=== PATIENT | female | born 1975 | race Caucasian/White ===

== ENCOUNTER → 2019-02-02 | Outpatient (CLI) | payer OTHER ==
[~2019-02-02] MED LIST: DOXY100C37 PO; IBUP200T45 PO; LEXA1TAB PO; OMEP40CA2 PO; PRED20TA PO; TIOT18INH INH; TOPA1TAB PO; TYLE500T78 PO; VENTAER IN
--- NOTE | 2019-02-02 12:03 | REP ---
CHEST, TWO VIEWS: There is no evidence of acute infiltrate. No pleural effusion is seen. The heart is normal in size. The mediastinal silhouette is unremarkable. The visualized osseous structures are intact. IMPRESSION: No acute pulmonary disease. Electronically Signed by Lance Rodriguez MD 02/02/2019 05:54 P
== END ==
LOC: M LRY 10:57
PROVIDERS: ATTEND Physician Assistant
DX: R06.2 Wheezing (principal)

== ENCOUNTER 2019-05-08 16:31 | Emergency (ER) | payer OTHER ==
[~2019-05-08] VITALS: Ht 165.1 cm; Wt 74.2 kg
[~2019-05-08 16:31] MED LIST changes: -OMEP40CA2 PO; +OMEP40CA97 PO
[2019-05-08] MEDS ORDERED: OMEP-221 (16:39)
[2019-05-08] MEDS ORDERED: IPRATROPIUM 0.5MG/ALBUTEROL 2.5MG INH SOL UD 3ML (DUONEB)(J7620) NEB ONE (18:00)
[2019-05-08] MEDS ORDERED: methylPREDNISolone INJ 125 MG/2 ML VIAL (J2930) IV ONE (18:00)
[2019-05-08 18:30] LABS: BASO # 0.1 10^3/uL (0.0-0.2); BASO % 0.7 % (0.0-1.0); EOS # 0.1 10^3/uL (0.0-0.5); EOS % 1.7 % (0.0-3.0); HEMATOCRIT 41.1 % (36.0-47.0); LYMPH # 2.6 10^3/uL (1.5-5.0); LYMPH % 33.2 % (24.0-44.0); MEAN CORPUSCULAR HGB CONC 31.6 g/dl (32.0-36.5); MEAN CORPUSCULAR VOLUME 94.7 fl (80.0-96.0); MONO # 0.6 10^3/uL (0.0-0.8); NEUTROPHILS # 4.3 10^3/uL (1.5-8.5); NEUTROPHILS % 56.3 % (36.0-66.0); PLATELET COUNT, AUTOMATED 225 10^3/uL (150-450); RED BLOOD COUNT 4.34 10^6/uL (4.00-5.40); WHITE BLOOD COUNT 7.7 10^3/uL (4.0-10.0)
[2019-05-08 18:55] LABS: BLOOD UREA NITROGEN 16 MG/DL (7-18); CALCIUM LEVEL 9.2 MG/DL (8.5-10.1); CARBON DIOXIDE LEVEL 29 MEQ/L (21-32); CHLORIDE LEVEL 109 MEQ/L (98-107); CREATININE FOR GFR 0.92 MG/DL (0.55-1.30); GLOMERULAR FILTRATION RATE > 60.0 (>58); GLUCOSE, FASTING 69 MG/DL (70-100); NT-PRO BNP 280 PG/ML (<125); POTASSIUM SERUM 4.5 MEQ/L (3.5-5.1); SODIUM LEVEL 144 MEQ/L (136-145)
--- NOTE | 2019-05-08 19:09 | REP ---
CHEST: Two views. There is no evidence of acute infiltrate. No pleural effusion is seen. The heart is normal in size. The mediastinal silhouette is unremarkable. The visualized osseous structures are intact. IMPRESSION: No acute pulmonary disease. Electronically Signed by Lance Rodriguez MD 05/08/2019 07:38 P
[2019-05-08] MEDS ORDERED: ISOVUE-370 76% 100ML VIAL (Q9967) As Ordered ONE (19:12)
--- NOTE | 2019-05-08 19:57 | REPVR ---
PROCEDURE INFORMATION: Exam: CT Angiography Chest With Contrast Exam date and time: 05/08/2019 7:11 PM Age: 44 years old Clinical indication: Shortness of breath; Additional info: Pleuritic chest pain, shortness of breath TECHNIQUE: Imaging protocol: Computed tomographic angiography of the chest with intravenous contrast. 3D rendering: MIP and/or 3D reconstructed images were created by the technologist. Radiation optimization: All CT scans at this facility use at least one of these dose optimization techniques: automated exposure control; mA and/or kV adjustment per patient size (includes targeted exams where dose is matched to clinical indication); or iterative reconstruction. Contrast material: ISVOUE 370; Contrast volume: 75 ml; Contrast route: IV; COMPARISON: CR Chest, 2 view PA, Lat 05/08/2019 6:43 PM FINDINGS: Pulmonary arteries: No focal pulmonary artery filling defect to suggest acute pulmonary embolus. Aorta: No thoracic aortic aneurysm or dissection. Lungs: Pulmonary vascular/interstitial pattern does not suggest active pulmonary edema. No suspicious lung mass or air space process. No central endobronchial lesion. Mild centrilobular emphysema with apical predominance, and mild right lower lobe bullous changes. Pleural space: No pleural effusion or pneumothorax. Heart: No cardiac enlargement or pericardial effusion. Spleen: Splenic cyst measuring 6.5 cm diameter, incidental, with simple fluid density. Lymph nodes: No enlarged mediastinal lymph nodes. Bones/joints: Bony structures show no acute fracture or destructive process. Soft tissues: Unremarkable. IMPRESSION: 1. No evidence of acute pulmonary embolus. 2. No other acute or concerning focal intrathoracic abnormality. 3. Mild apical predominant emphysema and mild basilar bullous change, likely mild centrilobular emphysema Electronically signed by: Semyour Jenkins On 05/08/2019 19:57:47 PM
[2019-05-08] MEDS ORDERED: PRED20TA PO (20:42)
[2019-05-08] MEDS ORDERED: AZIT500T5 PO (20:42)
[2019-05-08] MEDS ORDERED: ALBU83IN NEB (20:42)
[2019-05-08 21:02] VITALS: BP 126/75
== END 2019-05-08 21:26 | disposition home or self-care (01) ==
LOC: M ED 16:31
DX: J44.1 Chronic obstructive pulmonary disease with (acute) exacerbation (principal); I10 Essential (primary) hypertension; G47.00 Insomnia, unspecified; K21.9 Gastro-esophageal reflux disease without esophagitis; R51 Headache; F41.9 Anxiety disorder, unspecified; F32.9 Major depressive disorder, single episode, unspecified; Z86.010 Personal history of colon polyps; Z86.711 Personal history of pulmonary embolism; F17.200 Nicotine dependence, unspecified, uncomplicated; Z79.899 Other long term (current) drug therapy; Z88.5 Allergy status to narcotic agent; Z88.8 Allergy status to other drugs, medicaments and biological substances
CPT/HCPCS: 36415; 71046; 71275; 80048; 83605; 83880; 85025; 85379; 87040; 94760; 96374; 99284; J2930; Q9967

== ENCOUNTER 2019-05-18 19:28 | Emergency (ER) | payer OTHER ==
[~2019-05-18] VITALS: Ht 165.1 cm; Wt 78.3 kg
[~2019-05-18 19:28] MED LIST changes: +ALBU83IN NEB; +AZIT500T5 PO; +OMEP-221
[2019-05-18] MEDS ORDERED: CHAN1PAK13 (19:48)
[2019-05-18] MEDS ORDERED: BENZ-18 (19:48)
[2019-05-18] MEDS ORDERED: LORazepam 2 MG/ML VIAL (J2060) IV STA (20:15)
[2019-05-18] MEDS ORDERED: ALBUTEROL SULFATE 2.5 MG/0.5 ML INH NEB SOLN NEB ONE (20:15)
[2019-05-18] MEDS ORDERED: IPRATROPIUM 0.5MG/ALBUTEROL 2.5MG INH SOL UD 3ML (DUONEB)(J7620) NEB ONE (20:15)
[2019-05-18 20:31] LABS: HEMATOCRIT 38.9 % (36.0-47.0); HEMOGLOBIN 12.4 g/dl (12.0-15.5); MEAN CORPUSCULAR HEMOGLOBIN 30.3 pg (27.0-33.0); MEAN CORPUSCULAR HGB CONC 31.9 g/dl (32.0-36.5); MEAN CORPUSCULAR VOLUME 95.1 fl (80.0-96.0); PLATELET COUNT, AUTOMATED 230 10^3/uL (150-450); RED BLOOD COUNT 4.09 10^6/uL (4.00-5.40); WHITE BLOOD COUNT 13.2 10^3/uL (4.0-10.0)
[2019-05-18 20:34] LABS: BLOOD UREA NITROGEN 20 MG/DL (7-18); CALCIUM LEVEL 8.4 MG/DL (8.5-10.1); CARBON DIOXIDE LEVEL 29 MEQ/L (21-32); CHLORIDE LEVEL 105 MEQ/L (98-107); CK-MB VALUE MASS 2.3 NG/ML (<3.6); CPK CREATINE PHOSPHOKINASE 101 U/L (26-192); CREATININE FOR GFR 1.03 MG/DL (0.55-1.30); GLOMERULAR FILTRATION RATE > 60.0 (>58); GLUCOSE, FASTING 75 MG/DL (70-100); MB/CK RELATIVE INDEX 2.28 (< OR =4); POTASSIUM SERUM 4.1 MEQ/L (3.5-5.1); SODIUM LEVEL 139 MEQ/L (136-145); TROPONIN I < 0.02 NG/ML (< 0.10)
[2019-05-18 20:50] LABS: ATYPICAL LYMPH 8 % (0-5); EOSINOPHILS 1 % (0-3); LYMPHOCYTES 33 % (16-44); MONOCYTES 7 % (0-5); NEUTROPHILS 51 % (28-66)
[2019-05-18 20:51] LABS: PLATELET ESTIMATE NORMAL (NORMAL)
--- NOTE | 2019-05-18 21:19 | ECGEPIP ---
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
[2019-05-18] MEDS ORDERED: ATIV1TAB7 PO (22:15)
[2019-05-18] MEDS ORDERED: VENTAER INH (22:18)
[2019-05-18] MEDS ORDERED: VOLT1GEL15 TOP (22:27)
[2019-05-18] MEDS ORDERED: IPRA0.00 NEB (22:27)
[2019-05-18 22:48] VITALS: BP 109/59
--- NOTE | 2019-05-19 01:23 | REP ---
Clinical: Cough and dyspnea . Comparison: 05/08/2019 . Findings: The mediastinum and cardiac silhouette are stable and within normal limits for portable technique. The lung garrison are clear without acute consolidation, effusion, or pneumothorax. Skeletal structures are intact. Impression: No acute cardiopulmonary process appreciated. Electronically Signed by Cristi Retana MD 05/19/2019 01:14 A
== END 2019-05-18 22:53 | disposition home or self-care (01) ==
LOC: M ED 19:28
DX: F41.9 Anxiety disorder, unspecified (principal); R06.02 Shortness of breath; J44.9 Chronic obstructive pulmonary disease, unspecified; K21.9 Gastro-esophageal reflux disease without esophagitis; F32.9 Major depressive disorder, single episode, unspecified; F17.200 Nicotine dependence, unspecified, uncomplicated; Z79.899 Other long term (current) drug therapy; Z88.5 Allergy status to narcotic agent; Z88.8 Allergy status to other drugs, medicaments and biological substances
CPT/HCPCS: 36600; 71045; 80048; 82550; 82553; 82803; 85025; 93005; 93041; 94640; 96374; 99285; J2060

== ENCOUNTER → 2019-06-08 | Outpatient (CLI) | payer OTHER ==
[~2019-06-08] MED LIST changes: +ATIV1TAB7 PO; +BENZ-18; +CHAN1PAK13; +IPRA0.00 NEB; +VENTAER INH; +VOLT1GEL15 TOP
--- NOTE | 2019-06-08 11:16 | REP ---
Left calcaneus two views : There is no fracture or dislocation. Mineralization and joint spaces are normal. There are no calcifications or foreign bodies. Impression: Negative left calcaneus . Electronically Signed by Lance Boucher MD 06/08/2019 11:08 A
== END ==
LOC: M RAD 09:35
PROVIDERS: ATTEND Physician Assistant
DX: M79.672 Pain in left foot (principal)

== ENCOUNTER 2019-07-16 16:18 | Emergency (ER) | payer OTHER ==
[~2019-07-16] VITALS: Ht 165.1 cm; Wt 77.4 kg
[2019-07-16] MEDS ORDERED: SERT50TA29 (16:28)
[2019-07-16] MEDS ORDERED: INCR1INH (16:28)
[2019-07-16] MEDS ORDERED: LAMO25TA4 (16:28)
[2019-07-16] MEDS ORDERED: ZIPR20CA13 (16:28)
[2019-07-16] MEDS ORDERED: TOPI25TA10 (16:28)
[2019-07-16 17:48] LABS: INFLUENZA A AMPLIFICATION POSITIVE (NEGATIVE); INFLUENZA B AMPLIFICATION NEGATIVE (NEGATIVE)
[2019-07-16 17:52] LABS: BASO % 0.6 % (0.0-1.0); EOS # 0.1 10^3/uL (0.0-0.5); HEMATOCRIT 39.3 % (36.0-47.0); LYMPH # 1.3 10^3/uL (1.5-5.0); LYMPH % 18.7 % (24.0-44.0); MEAN CORPUSCULAR HGB CONC 33.1 g/dl (32.0-36.5); MEAN CORPUSCULAR VOLUME 93.6 fl (80.0-96.0); MONO # 0.8 10^3/uL (0.0-0.8); MONO % 10.5 % (0.0-5.0); NEUTROPHILS # 4.9 10^3/uL (1.5-8.5); NEUTROPHILS % 67.9 % (36.0-66.0); PLATELET COUNT, AUTOMATED 207 10^3/uL (150-450); WHITE BLOOD COUNT 7.2 10^3/uL (4.0-10.0)
[2019-07-16 18:04] LABS: INR 0.91; PARTIAL THROMBOPLASTIN TIME 27.1 SECONDS (25.0-38.4); PROTHROMBIN TIME 11.9 SECONDS (11.8-14.0)
[2019-07-16] MEDS ORDERED: ISOVUE-370 76% 100ML VIAL (Q9967) As Ordered ONE (18:12)
[2019-07-16 18:22] LABS: CK-MB VALUE MASS 5.6 NG/ML (<3.6); CPK CREATINE PHOSPHOKINASE 287 U/L (26-192); MB/CK RELATIVE INDEX 1.95 (< OR =4); TROPONIN I < 0.02 NG/ML (< 0.10)
--- NOTE | 2019-07-16 19:15 | REPVR ---
PROCEDURE INFORMATION: Exam: CT Angiography Chest With Contrast Exam date and time: 07/16/2019 6:19 PM Age: 44 years old Clinical indication: Shortness of breath; Chest pain; HX of pe TECHNIQUE: Imaging protocol: Computed tomographic angiography of the chest with intravenous contrast. 3D rendering: MIP reconstructed images were created by the technologist. Radiation optimization: All CT scans at this facility use at least one of these dose optimization techniques: automated exposure control; mA and/or kV adjustment per patient size (includes targeted exams where dose is matched to clinical indication); or iterative reconstruction. Contrast material: ISOVUE 370; Contrast volume: 75 ml; Contrast route: IV; COMPARISON: CT ANGIO CHEST 05/08/2019 7:10 PM FINDINGS: Pulmonary arteries: No pulmonary embolism. Great vessels off aortic arch: The brachiocephalic artery, imaged proximal portion of the left common carotid artery, and left subclavian artery are intact. No stenosis or occlusion of these vessels is noted. Aorta: There is no thoracic aortic aneurysm, pseudoaneurysm, penetrating atherosclerotic ulcer, intramural hematoma, or dissection. Lungs: The lungs are clear. There are centrilobular emphysematous changes, predominantly in the upper lobes, and cystic changes in the right lower lobe, which are similar in appearance compared to the prior CTA chest on 05/08/2019. The major airways are patent. Pleural space: Unremarkable. No pneumothorax. No pleural effusion. Heart: No cardiomegaly or pericardial effusion. The ratio of the diameter of the right ventricle to the diameter of the left ventricle measures less than 1, which is within normal limits and there is no evidence for a right ventricular strain. Mediastinum: No mediastinal mass, hemorrhage, or pneumomediastinum is noted. Liver: There is an 8 mm cyst in the periphery of the right hepatic lobe, which is unchanged compared to the prior CTA chest on 05/08/2019 and for which follow-up is not necessary. The liver was not fully imaged. Spleen: There is a 6 cm cyst with simple characteristics in the spleen, which is stable compared to the prior CTA chest on 05/08/2019 and for which follow-up is not necessary. The spleen was not fully imaged. Lymph nodes: No enlarged lymph nodes. Bones/joints: No fracture or dislocation is noted. There is no suspicious osteolytic or osteoblastic lesion. There are endplate spurs in the thoracic spine. Soft tissues: Unremarkable. IMPRESSION: 1. No acute findings in the chest. No pulmonary embolism. 2. Centrilobular emphysematous changes, which are similar in appearance compared to the prior CTA chest on 05/08/2019. Electronically signed by: Zac Mi On 07/16/2019 19:14:47 PM
[2019-07-16 19:30] VITALS: BP 115/61
[2019-07-16] MEDS ORDERED: OSELTAMIVIR PHOSPHATE 75 MG CAP (TAMIFLU) PO ONE (19:30)
[2019-07-16] MEDS ORDERED: OSEL75CA PO (19:30)
[2019-07-16] MEDS ORDERED: BENZ200C70 PO (19:35)
[2019-07-16] MEDS ORDERED: MEDR4PAK PO (19:35)
[2019-07-16] MEDS ORDERED: BENZONATATE 100 MG CAP PO ONE (19:45)
--- NOTE | 2019-07-17 07:45 | ECGEPIP ---
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
== END 2019-07-16 19:54 | disposition home or self-care (01) ==
LOC: M ED 16:18
DX: J09.X2 Influenza due to identified novel influenza A virus with other respiratory manifestations (principal); Z20.89 Contact with and (suspected) exposure to other communicable diseases; J43.9 Emphysema, unspecified; F41.9 Anxiety disorder, unspecified; F32.9 Major depressive disorder, single episode, unspecified; G25.81 Restless legs syndrome; M79.7 Fibromyalgia; R42 Dizziness and giddiness; M71.50 Other bursitis, not elsewhere classified, unspecified site; Z86.711 Personal history of pulmonary embolism; F17.200 Nicotine dependence, unspecified, uncomplicated; Z79.899 Other long term (current) drug therapy; Z88.5 Allergy status to narcotic agent; Z88.8 Allergy status to other drugs, medicaments and biological substances
CPT/HCPCS: 36415; 71275; 80047; 82550; 82553; 85025; 85610; 85730; 87502; 93005; 99284; Q9967

== ENCOUNTER 2019-08-14 10:59 | Emergency (ER) | payer OTHER ==
[~2019-08-14] VITALS: Ht 165.1 cm; Wt 77.3 kg
[~2019-08-14 10:59] MED LIST changes: +BENZ200C70 PO; -CHAN1PAK13; +CHAN1PAK13 PO; +INCR1INH INH; +LAMO25TA4 PO; +MEDR4PAK PO; +OSEL75CA PO; +SERT50TA29 PO; +TOPI25TA10 PO; +ZIPR20CA13
[2019-08-14 11:40] LABS: BASO # 0.1 10^3/uL (0.0-0.2); BASO % 0.7 % (0.0-1.0); EOS # 0.1 10^3/uL (0.0-0.5); EOS % 1.4 % (0.0-3.0); HEMATOCRIT 40.3 % (36.0-47.0); HEMOGLOBIN 13.9 g/dl (12.0-15.5); LYMPH # 2.4 10^3/uL (1.5-5.0); LYMPH % 34.2 % (24.0-44.0); MEAN CORPUSCULAR HEMOGLOBIN 31.4 pg (27.0-33.0); MEAN CORPUSCULAR HGB CONC 34.5 g/dl (32.0-36.5); MONO # 0.6 10^3/uL (0.0-0.8); MONO % 8.4 % (0.0-5.0); NEUTROPHILS # 3.8 10^3/uL (1.5-8.5); PLATELET COUNT, AUTOMATED 255 10^3/uL (150-450); RED BLOOD COUNT 4.43 10^6/uL (4.00-5.40); WHITE BLOOD COUNT 6.9 10^3/uL (4.0-10.0)
--- NOTE | 2019-08-14 11:55 | REP ---
CHEST, SINGLE VIEW: There is no evidence of acute infiltrate. No pleural effusion is seen. The heart is normal in size. The mediastinal silhouette is unremarkable. The visualized osseous structures are intact. IMPRESSION: No acute pulmonary disease. Electronically Signed by Lance Rodriguez MD 08/14/2019 12:57 P
[2019-08-14 11:56] LABS: INR 0.94; PARTIAL THROMBOPLASTIN TIME 25.6 SECONDS (25.0-38.4); PROTHROMBIN TIME 12.2 SECONDS (11.8-14.0)
[2019-08-14] MEDS ORDERED: OMEP-221 PO (12:05)
[2019-08-14 12:15] LABS: ALBUMIN 3.7 GM/DL (3.2-5.2); ALT/SGPT 16 U/L (12-78); BILIRUBIN,DIRECT < 0.1 MG/DL (0.0-0.2); BILIRUBIN,TOTAL 0.4 MG/DL (0.2-1.0); BLOOD UREA NITROGEN 15 MG/DL (7-18); CALCIUM LEVEL 8.9 MG/DL (8.5-10.1); CARBON DIOXIDE LEVEL 25 MEQ/L (21-32); CHLORIDE LEVEL 107 MEQ/L (98-107); CK-MB VALUE MASS 2.6 NG/ML (<3.6); CPK CREATINE PHOSPHOKINASE 138 U/L (26-192); CREATININE FOR GFR 0.88 MG/DL (0.55-1.30); FREE T4 1.05 NG/DL (0.76-1.46); GLOMERULAR FILTRATION RATE > 60.0 (>58); GLUCOSE, FASTING 79 MG/DL (70-100); LIPASE 102 U/L (73-393); MB/CK RELATIVE INDEX 1.88 (< OR =4); POTASSIUM SERUM 4.1 MEQ/L (3.5-5.1); SODIUM LEVEL 138 MEQ/L (136-145); TOTAL PROTEIN 6.5 GM/DL (6.4-8.2); TROPONIN I < 0.02 NG/ML (< 0.10)
[2019-08-14] MEDS ORDERED: ASPIRIN 325 MG TAB PO ONE (12:15)
[2019-08-14] MEDS ORDERED: ISOVUE-370 76% 100ML VIAL (Q9967) As Ordered ONE (13:09)
[2019-08-14] MEDS ORDERED: ONDANSETRON 4MG/2ML VIAL (J2405) IV ONE (13:15)
[2019-08-14] MEDS ORDERED: GI COCKTAIL 50ML BTL(HYOSCYAMINE/MAALOX/LIDOCAINE VISCOUS)(1:3:1) PO ONE (15:00)
--- NOTE | 2019-08-14 15:07 | REP ---
REASON: Pleuritic chest pain. COMPARISON EXAM: 05/08/2019 and 07/16/2019, both pulmonary angio exams, both showing no PE, but chronic lung changes. CONTRAST: 100 mL Isovue 370. Once again, there is excellent visualization of the pulmonary arterial vasculature. Once again, no focal filling defects are present that would be considered consistent with pulmonary emboli. Once again, the thoracic aorta is within normal limits. Once again, there are no pleural or pericardial effusions. The imaged upper abdomen is unchanged from the prior exam. There is a large splenic cyst status quo. The imaged osseous structures are stable and intact. Evaluation of the lung garrison show mild chronic changes status quo. There are no new abnormal nodules, masses, or opacities. IMPRESSION: CT examination of the chest is unchanged as described above. There is no evidence of acute disease. Electronically Signed by Jason Chan DO 08/14/2019 03:27 P
[2019-08-14 16:51] VITALS: BP 121/71
[2019-08-14 17:39] LABS: CK-MB VALUE MASS 2.1 NG/ML (<3.6); CPK CREATINE PHOSPHOKINASE 109 U/L (26-192); MB/CK RELATIVE INDEX 1.93 (< OR =4); TROPONIN I < 0.02 NG/ML (< 0.10)
--- NOTE | 2019-08-15 09:08 | ECGEPIP ---
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
--- NOTE | 2019-08-15 09:13 | ECGEPIP ---
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
== END 2019-08-14 18:05 | disposition home or self-care (01) ==
LOC: M ED 10:59
DX: R07.89 Other chest pain (principal); R11.2 Nausea with vomiting, unspecified; R07.1 Chest pain on breathing; R42 Dizziness and giddiness; J44.9 Chronic obstructive pulmonary disease, unspecified; M54.9 Dorsalgia, unspecified; Z79.899 Other long term (current) drug therapy; Z88.5 Allergy status to narcotic agent; Z88.8 Allergy status to other drugs, medicaments and biological substances
CPT/HCPCS: 71045; 71275; 80048; 80076; 81001; 82550; 82553; 83690; 84439; 84443; 85025; 85610; 85730; 93005; 93041; 94760; 96374; 99284; J2405; Q9967

== ENCOUNTER 2020-02-06 12:44 | Emergency (ER) | payer OTHER ==
[~2020-02-06 12:44] MED LIST changes: -KETO10TAB PO
[2020-02-06] MEDS ORDERED: KETOROLAC 30 MG/ML 1ML VIAL IV ONE (13:30)
[2020-02-06 13:59] LABS: BASO # 0.1 10^3/uL (0.0-0.2); BASO % 0.7 % (0.0-1.0); EOS # 0.2 10^3/uL (0.0-0.5); EOS % 1.7 % (0.0-3.0); HEMATOCRIT 36.1 % (36.0-47.0); HEMOGLOBIN 11.8 g/dl (12.0-15.5); LYMPH # 2.6 10^3/uL (1.5-5.0); LYMPH % 28.7 % (24.0-44.0); MEAN CORPUSCULAR HEMOGLOBIN 30.5 pg (27.0-33.0); MEAN CORPUSCULAR HGB CONC 32.7 g/dl (32.0-36.5); MEAN CORPUSCULAR VOLUME 93.3 fl (80.0-96.0); MONO # 0.7 10^3/uL (0.0-0.8); NEUTROPHILS # 5.4 10^3/uL (1.5-8.5); NEUTROPHILS % 60.6 % (36.0-66.0); PLATELET COUNT, AUTOMATED 235 10^3/uL (150-450); RED BLOOD COUNT 3.87 10^6/uL (4.00-5.40); WHITE BLOOD COUNT 8.9 10^3/uL (4.0-10.0)
[2020-02-06 14:12] LABS: INR 0.9; PROTHROMBIN TIME 12.4 SECONDS (12.5-14.3)
--- NOTE | 2020-02-06 14:34 | REPVR ---
PROCEDURE INFORMATION: Exam: XR Chest, 1 View Exam date and time: 02/06/2020 2:21 PM Age: 44 years old Clinical indication: Chest pain; On breathing TECHNIQUE: Imaging protocol: XR of the chest Views: 1 view. COMPARISON: CR PORTABLE CHEST X-RAY 08/14/2019 11:10 AM FINDINGS: Lungs: Unremarkable. No consolidation. Pleural space: Unremarkable. No pleural effusion. No pneumothorax. Heart/Mediastinum: Unremarkable. No cardiomegaly. Bones/joints: Unremarkable. IMPRESSION: No acute findings. Electronically signed by: Elma Greenwood On 02/06/2020 14:33:48 PM
[2020-02-06 14:36] LABS: ALBUMIN 3.6 GM/DL (3.2-5.2); ALT/SGPT 22 U/L (12-78); BILIRUBIN,DIRECT < 0.1 MG/DL (0.0-0.2); BILIRUBIN,TOTAL 0.3 MG/DL (0.2-1.0); BLOOD UREA NITROGEN 14 MG/DL (7-18); CALCIUM LEVEL 8.5 MG/DL (8.5-10.1); CARBON DIOXIDE LEVEL 28 MEQ/L (21-32); CHLORIDE LEVEL 109 MEQ/L (98-107); CREATININE FOR GFR 0.86 MG/DL (0.55-1.30); GLOMERULAR FILTRATION RATE > 60.0 (>58); GLUCOSE, FASTING 92 MG/DL (70-100); LIPASE 95 U/L (73-393); NT-PRO BNP 173 PG/ML (<125); POTASSIUM SERUM 4.3 MEQ/L (3.5-5.1); SODIUM LEVEL 141 MEQ/L (136-145); TOTAL PROTEIN 6.3 GM/DL (6.4-8.2)
[2020-02-06] MEDS ORDERED: ISOVUE-370 76% 100ML VIAL As Ordered ONE (14:53)
--- NOTE | 2020-02-06 16:00 | REPVR ---
PROCEDURE INFORMATION: Exam: CT Angiography Chest With Contrast Exam date and time: 02/06/2020 3:11 PM Age: 44 years old Clinical indication: Chest pain; Additional info: Pleuritic cp TECHNIQUE: Imaging protocol: Computed tomographic angiography of the chest with intravenous contrast. 3D rendering (Not supervised by radiologist): MIP and/or 3D reconstructed images were created by the technologist. Radiation optimization: All CT scans at this facility use at least one of these dose optimization techniques: automated exposure control; mA and/or kV adjustment per patient size (includes targeted exams where dose is matched to clinical indication); or iterative reconstruction. Contrast material: ISOVUE 370; Contrast volume: 75 ml; Contrast route: INTRAVENOUS (IV); COMPARISON: CT ANGIO CHEST 08/14/2019 1:33 PM FINDINGS: Pulmonary arteries: There is no evidence of filling defects within the pulmonary arterial circulation to suggest pulmonary embolism. Aorta: No thoracic aortic aneurysm or dissection. Lungs: There is no focal lung consolidation however there is diffuse prominence of the interstitium and multiple pneumatoceles are again seen in the right lower lobe. Pleural space: Unremarkable. No pneumothorax. No pleural effusion. Heart: No cardiomegaly or pericardial effusion. Lymph nodes: No significant mediastinal or hilar lymphadenopathy. Spleen: Large splenic cystic appearing lesion is again seen measuring 5.9 cm. No further significant findings in the portion of the upper abdomen included on the examination. Bones/joints: Unremarkable. No acute fracture. Soft tissues: Unremarkable. IMPRESSION: 1. No evidence of pulmonary emboli. 2. No evidence of pneumonia or congestive heart failure superimposed on chronic lung disease. 3. Stable cystic lesion with rim calcification in the spleen. No follow-up is necessary. Electronically signed by: Elma Greenwood On 02/06/2020 16:00:07 PM
[2020-02-06] MEDS ORDERED: KETO10TAB PO (18:51)
[2020-02-06 19:53] VITALS: BP 139/72
--- NOTE | 2020-02-07 08:27 | ECGEPIP ---
[facility] - ED Test Date: 2020-02-06 Pat Name: JASKARAN ESPARZA Department: Room: - Gender: Female Rn Surgery Icu: MARIA C : 1975 Requested By: Rhoda Garcia Order Number: [id number] Reading MD: Rhoda Garcia Measurements Intervals [place] Rate: 82 P: 38 NC: 151 QRS: 27 QRSD: 78 T: 60 QT: 338 QTc: 395 Interpretive Statements SINUS RHYTHM INCREASED RATE 08/14/19 Electronically Signed on 02-07-2020 8:27:22 EDT by Rhoda Garcia
--- NOTE | 2020-02-09 07:11 | ECGEPIP ---
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
== END 2020-02-06 19:54 | disposition home or self-care (01) ==
LOC: EDBD 12:44 → M ED 12:44
DX: R07.89 Other chest pain (principal); F41.9 Anxiety disorder, unspecified; F32.9 Major depressive disorder, single episode, unspecified; G47.30 Sleep apnea, unspecified; J44.9 Chronic obstructive pulmonary disease, unspecified; K21.9 Gastro-esophageal reflux disease without esophagitis; G43.909 Migraine, unspecified, not intractable, without status migrainosus; G25.81 Restless legs syndrome; Z86.711 Personal history of pulmonary embolism; F17.200 Nicotine dependence, unspecified, uncomplicated; Z79.899 Other long term (current) drug therapy; Z88.5 Allergy status to narcotic agent; Z88.8 Allergy status to other drugs, medicaments and biological substances
CPT/HCPCS: 71045; 71275; 80047; 80048; 80076; 80175; 83690; 83880; 84443; 85025; 85610; 93005; 93041; 94760; 96374; 99285; J1885; Q9967

== ENCOUNTER → 2020-02-06 | Outpatient (REF) | payer OTHER ==
[~2020-02-06] MED LIST changes: +KETO10TAB PO; +OMEP-221 PO
[2020-02-06 12:59] LABS: BASO # 0.1 10^3/uL (0.0-0.2); BASO % 0.8 % (0.0-1.0); EOS # 0.2 10^3/uL (0.0-0.5); EOS % 2.3 % (0.0-3.0); HEMATOCRIT 38.9 % (36.0-47.0); HEMOGLOBIN 12.3 g/dl (12.0-15.5); LYMPH # 2.4 10^3/uL (1.5-5.0); LYMPH % 32.6 % (24.0-44.0); MEAN CORPUSCULAR HEMOGLOBIN 30.2 pg (27.0-33.0); MEAN CORPUSCULAR HGB CONC 31.6 g/dl (32.0-36.5); MEAN CORPUSCULAR VOLUME 95.6 fl (80.0-96.0); MONO # 0.6 10^3/uL (0.0-0.8); NEUTROPHILS # 4.1 10^3/uL (1.5-8.5); NEUTROPHILS % 55.9 % (36.0-66.0); PLATELET COUNT, AUTOMATED 251 10^3/uL (150-450); RED BLOOD COUNT 4.07 10^6/uL (4.00-5.40); WHITE BLOOD COUNT 7.4 10^3/uL (4.0-10.0)
[2020-02-06 13:34] LABS: ALBUMIN 3.9 GM/DL (3.2-5.2); ALT/SGPT 22 U/L (12-78); BILIRUBIN,TOTAL 0.5 MG/DL (0.2-1.0); BLOOD UREA NITROGEN 14 MG/DL (7-18); CARBON DIOXIDE LEVEL 30 MEQ/L (21-32); CHLORIDE LEVEL 108 MEQ/L (98-107); CHOLESTEROL LEVEL 182 MG/DL (<200); CHOLESTEROL RISK RATIO 4.232 (<5); CREATININE FOR GFR 0.95 MG/DL (0.55-1.30); FREE T4 0.98 NG/DL (0.76-1.46); GLOMERULAR FILTRATION RATE > 60.0 (>58); GLUCOSE, FASTING 88 MG/DL (70-100); HDL CHOLESTEROL 43 MG/DL (>40); LDL CHOLESTEROL 112 MG/DL (<100); NON-HDL-C 139 MG/DL; POTASSIUM SERUM 4.5 MEQ/L (3.5-5.1); SODIUM LEVEL 143 MEQ/L (136-145); TOTAL PROTEIN 6.7 GM/DL (6.4-8.2); TRIGLYCERIDES LEVEL 135 MG/DL (<150)
[2020-02-06 13:35] LABS: TOTAL 25(OH) VITAMIN D 25.8 NG/ML (30.0-100.0)
== END ==
LOC: M LAB REF 11:35
PROVIDERS: ATTEND Physician Assistant
DX: R00.2 Palpitations (principal); F90.2 Attention-deficit hyperactivity disorder, combined type; F41.8 Other specified anxiety disorders; J44.9 Chronic obstructive pulmonary disease, unspecified; F17.210 Nicotine dependence, cigarettes, uncomplicated; K21.9 Gastro-esophageal reflux disease without esophagitis

== ENCOUNTER → 2020-02-19 | Outpatient (REF) | payer OTHER ==
[~2020-02-19] MED LIST changes: +KETO10TAB PO
== END ==
LOC: M LAB REF 16:17
PROVIDERS: ATTEND Physician Assistant
DX: Z11.3 Encounter for screening for infections with a predominantly sexual mode of transmission (principal)

== ENCOUNTER → 2020-05-12 | Outpatient (CLI) | payer OTHER | LOC: M LABSMTC 11:30 | PROVIDERS: ATTEND Anesthesiology | DX: Z01.812 Encounter for preprocedural laboratory examination (principal); Z20.822 Contact with and (suspected) exposure to COVID-19 ==

== ENCOUNTER 2020-05-17 09:50 | Day surgery (SDC) | payer OTHER ==
[~2020-05-17] VITALS: Ht 165.1 cm; Wt 90.7 kg
[~2020-05-17 09:50] MED LIST changes: +NS 1,000 ML IV ONE
--- OUTSIDE RECORDS SUMMARY | 2020-05-17 09:55 | CCD ---
Author Author [facility] Organization [facility] Address Unknown Phone Unavailable Care Team Providers Care Cadet Deck Name Role Phone Osman, A Kassidy BEEF CATTLE GRAZIER Unavailable Unavailable Osman, A Kassidy BEEF CATTLE GRAZIER Unavailable Unavailable Osman, A Kassidy BEEF CATTLE GRAZIER Unavailable Unavailable Osman, A Kassidy BEEF CATTLE GRAZIER Unavailable Unavailable Osman, A Kassidy BEEF CATTLE GRAZIER Unavailable Unavailable Osman, A Kassidy BEEF CATTLE GRAZIER Unavailable Unavailable Osman, A Kassidy BEEF CATTLE GRAZIER Unavailable Unavailable Osman, A Kassidy BEEF CATTLE GRAZIER Unavailable Unavailable Osman, A Kassidy BEEF CATTLE GRAZIER Unavailable Unavailable Osman, A Kassidy BEEF CATTLE GRAZIER Unavailable Unavailable Osman, A Kassidy BEEF CATTLE GRAZIER Unavailable Unavailable Osman, A Kassidy BEEF CATTLE GRAZIER Unavailable Unavailable Osman, A Kassidy BEEF CATTLE GRAZIER Unavailable Unavailable Osman, A Kassidy BEEF CATTLE GRAZIER Unavailable Unavailable Osman, A Kassidy BEEF CATTLE GRAZIER Unavailable Unavailable Osman, A Kassidy BEEF CATTLE GRAZIER Unavailable Unavailable Osman, A Kassidy BEEF CATTLE GRAZIER Unavailable Unavailable Osman, A Kassidy BEEF CATTLE GRAZIER Unavailable Unavailable Osman, A Kassidy BEEF CATTLE GRAZIER Unavailable Unavailable Osman, A Kassidy BEEF CATTLE GRAZIER Unavailable Unavailable Osman, A Kassidy BEEF CATTLE GRAZIER Unavailable Unavailable Osman, A Kassidy BEEF CATTLE GRAZIER Unavailable Unavailable Osman, A Kassidy BEEF CATTLE GRAZIER Unavailable Unavailable Osman, A Kassidy BEEF CATTLE GRAZIER Unavailable Unavailable Osman, A Kassidy BEEF CATTLE GRAZIER Unavailable Unavailable Osman, A Kassidy BEEF CATTLE GRAZIER Unavailable Unavailable Osman, A Kassidy BEEF CATTLE GRAZIER Unavailable Unavailable MAJAK, R NASREEN DPM Unavailable Unavailable MAJAK, R NASREEN DPM Unavailable Unavailable MAJAK, R NASREEN DPM Unavailable Unavailable MAJAK, R NASREEN DPM Unavailable Unavailable MAJAK, R NASREEN DPM Unavailable Unavailable MAJAK, R NASREEN DPM Unavailable Unavailable MAJAK, R NASREEN DPM Unavailable Unavailable MAJAK, R NASREEN DPM Unavailable Unavailable MAJAK, R NASREEN DPM Unavailable Unavailable MAJAK, R NASREEN DPM Unavailable Unavailable MAJAK, R NASREEN DPM Unavailable Unavailable MAJAK, R NASREEN DPM Unavailable Unavailable MAJAK, R NASREEN DPM Unavailable Unavailable MAJAK, R NASREEN DPM Unavailable Unavailable MAJAK, R NASREEN DPM Unavailable Unavailable MAJAK, R NASREEN DPM Unavailable Unavailable MAJAK, R NASREEN DPM Unavailable Unavailable MAJAK, R NASREEN DPM Unavailable Unavailable MAJAK, R NASREEN DPM Unavailable Unavailable MAJAK, R NASREEN DPM Unavailable Unavailable MAJAK, R NASREEN DPM Unavailable Unavailable MAJAK, R NASREEN DPM Unavailable Unavailable MAJAK, R NASREEN DPM Unavailable Unavailable MAJAK, R NASREEN DPM Unavailable Unavailable MAJAK, R NASREEN DPM Unavailable Unavailable MAJAK, R NASREEN DPM Unavailable Unavailable MAJAK, R NASREEN DPM Unavailable Unavailable MAJAK, R NASREEN DPM Unavailable Unavailable MAJAK, R NASREEN DPM Unavailable Unavailable MAJAK, R NASREEN DPM Unavailable Unavailable Joanne LUCAS MD Unavailable Unavailable Joanne LUCAS MD Unavailable Unavailable Joanne LUCAS MD Unavailable Unavailable Joanne LUCAS MD Unavailable Unavailable Joanne LUCAS MD Unavailable Unavailable Joanne LUCAS MD Unavailable Unavailable Joanne LUCAS MD Unavailable Unavailable Joanne LUCAS MD Unavailable Unavailable Joanne LUCAS MD Unavailable Unavailable Joanne LUCAS MD Unavailable Unavailable Joanne LUCAS MD Unavailable Unavailable Joanne LUCAS MD Unavailable Unavailable Joanne LUCAS MD Unavailable Unavailable Joanne LUCAS MD Unavailable Unavailable Joanne LUCAS MD Unavailable Unavailable Joanne LUCAS MD Unavailable Unavailable Joanne LUCAS MD Unavailable Unavailable Joanne LUCAS MD Unavailable Unavailable Joanne LUCAS MD Unavailable Unavailable Joanne LUCAS MD Unavailable Unavailable Joanne LUCAS MD Unavailable Unavailable Joanne LUCAS MD Unavailable Unavailable Joanne LUCAS MD Unavailable Unavailable Joanne LUCAS MD Unavailable Unavailable Joanne LUCAS MD Unavailable Unavailable Joanne LUCAS MD Unavailable Unavailable Joanne LUCAS MD Unavailable Unavailable Joanne LUCAS MD Unavailable Unavailable Joanne LUCAS MD Unavailable Unavailable Joanne LUCAS MD Unavailable Unavailable Joanne LUCAS MD Unavailable Unavailable Joanne LUCAS MD Unavailable Unavailable Joanne LUCAS MD Unavailable Unavailable Joanne LUCAS MD Unavailable Unavailable Joanne LUCAS MD Unavailable Unavailable Joanne LUCAS MD Unavailable Unavailable Joanne LUCAS MD Unavailable Unavailable Joanne LUCAS MD Unavailable Unavailable Joanne LUCAS MD Unavailable Unavailable Joanne LUCAS MD Unavailable Unavailable Joanne LUCAS MD Unavailable Unavailable Joanne LUCAS MD Unavailable Unavailable Joanne LUCAS MD Unavailable Unavailable Joanne LUCAS MD Unavailable Unavailable Joanne LUCAS MD Unavailable Unavailable Joanne LUCAS MD Unavailable Unavailable Joanne LUCAS MD Unavailable Unavailable Joanne LUCAS MD Unavailable Unavailable Joanne LUCAS MD Unavailable Unavailable Joanne LUCAS MD Unavailable Unavailable Joanne LUCAS MD Unavailable Unavailable Joanne LUCAS MD Unavailable Unavailable Joanne LUCAS MD Unavailable Unavailable Joanne LUCAS MD Unavailable Unavailable Joanne LUCAS MD Unavailable Unavailable Joanne LUCAS MD Unavailable Unavailable Joanne LUCAS MD Unavailable Unavailable Joanne LUCAS MD Unavailable Unavailable Joanne LUCAS MD Unavailable Unavailable Joanne LUCAS MD Unavailable Unavailable Joanne LUCAS MD Unavailable Unavailable Joanne LUCAS MD Unavailable Unavailable Joanne LUCAS MD Unavailable Unavailable Joanne LUCAS MD Unavailable Unavailable Joanne LUCAS MD Unavailable Unavailable Joanne LUCAS MD Unavailable Unavailable Joanne LUCAS MD Unavailable Unavailable Joanne LUCAS MD Unavailable Unavailable Joanne LUCAS MD Unavailable Unavailable Joanne LUCAS MD Unavailable Unavailable Joanne LUCAS MD Unavailable Unavailable FELIXJoanne ENGLAND MD Unavailable Unavailable FELIXJoanne Tariq MD Unavailable Unavailable FELIXJoanne Tariq MD Unavailable Unavailable FELIX, Joanne RAMOS MD Unavailable Unavailable FELIXJoanne ENGLAND MD Unavailable Unavailable FELIXJoanne ENGLAND MD Unavailable Unavailable FELIX, Joanne RAMOS MD Unavailable Unavailable FELIX, Joanne RAMOS MD Unavailable Unavailable Joanne LUCAS MD Unavailable Unavailable FELIXJoanne ENGLAND MD Unavailable Unavailable Joanne LUCAS MD Unavailable Unavailable Joanne LUCAS MD Unavailable Unavailable RENATA, Eric URBINA MD Unavailable Unavailable RENATA, Eric URBINA MD Unavailable Unavailable RENATA, Eric URBINA MD Unavailable Unavailable RENATA, Eric URBINA MD Unavailable Unavailable RENATA, Eric URBINA MD Unavailable Unavailable RENATA, Eric URBINA MD Unavailable Unavailable RENATA, Eric URBINA MD Unavailable Unavailable RENATA, Eric URBINA MD Unavailable Unavailable RENATA, Eric URBINA MD Unavailable Unavailable RENATA, Eric URBINA MD Unavailable Unavailable RENATA, Eric URBINA MD Unavailable Unavailable RENATA, Eric URBINA MD Unavailable Unavailable RENATA, Eric URBINA MD Unavailable Unavailable RENATA, Eric URBINA MD Unavailable Unavailable RENATA, Eric URBINA MD Unavailable Unavailable RENATA, Eric URBINA MD Unavailable Unavailable RENATA, Eric URBINA MD Unavailable Unavailable RENATA, Eric URBINA MD Unavailable Unavailable RENATA, Eric URBINA MD Unavailable Unavailable RENATA, Eric URBINA MD Unavailable Unavailable RENATA, Eric URBINA MD Unavailable Unavailable RENATA, Eric URBINA MD Unavailable Unavailable RENATA, Eric URBINA MD Unavailable Unavailable RENATA, Eric URBINA MD Unavailable Unavailable RENATA, Eric URBINA MD Unavailable Unavailable RENATA, Eric URBINA MD Unavailable Unavailable RENATA, Eric URBINA MD Unavailable Unavailable RENATAEric LYNN MD Unavailable Unavailable RENATA, Eric URBINA MD Unavailable Unavailable RENATA, Eric URBINA MD Unavailable Unavailable RENATA, Eric URBINA MD Unavailable Unavailable RENATA, Eric URBINA MD Unavailable Unavailable RENATA, Eric URBINA MD Unavailable Unavailable RENATA, Eric URBINA MD Unavailable Unavailable RENATA, Eric URBINA MD Unavailable Unavailable RENATA, Eric URBINA MD Unavailable Unavailable RENATA, Eric URBINA MD Unavailable Unavailable RENATA, Eric URBINA MD Unavailable Unavailable RENATA, Eric URBINA MD Unavailable Unavailable RENATA, Eric URBINA MD Unavailable Unavailable RENATA, Eric URBINA MD Unavailable Unavailable RENATA, Eric RUBINA MD Unavailable Unavailable RENATA, Eric URBINA MD Unavailable Unavailable RENATA, Eric URBINA MD Unavailable Unavailable RENATA, Eric URBINA MD Unavailable Unavailable RENATA, Eric URBINA MD Unavailable Unavailable RENATA, Eric URBINA MD Unavailable Unavailable RENATA, E CIARA PARSONS Unavailable Unavailable RENATA, Eric URBINA MD Unavailable Unavailable RENATA, E CIARA PARSONS Unavailable Unavailable RENATA, Eric URBINA MD Unavailable Unavailable RENATA, Eric URBINA MD Unavailable Unavailable RENATA, Eric URBINA MD Unavailable Unavailable RENATA, E CIARA PARSONS Unavailable Unavailable RENATA, E CIARA PARSONS Unavailable Unavailable RENATA, E CIARA PARSONS Unavailable Unavailable RENATA, E CIARA PARSONS Unavailable Unavailable RENATA, Eric URBINA MD Unavailable Unavailable RENATA, Eric URBINA MD Unavailable Unavailable RENATA, Eric URBINA MD Unavailable Unavailable RENATA, Eric URBINA MD Unavailable Unavailable RENATA, Eric URBINA MD Unavailable Unavailable RENATA, Eric URBINA MD Unavailable Unavailable RENATA, Eric URBINA MD Unavailable Unavailable RENATA, Eric URBINA MD Unavailable Unavailable RENATA, Eric URBINA MD Unavailable Unavailable RENATA, Eric URBINA MD Unavailable Unavailable RENATA, Eric URBINA MD Unavailable Unavailable RENATA, Eric URBINA MD Unavailable Unavailable RENATA, Eric URBINA MD Unavailable Unavailable RENATA, Eric URBINA MD Unavailable Unavailable RENATA, Eric URBINA MD Unavailable Unavailable RENATA, Eric URBINA MD Unavailable Unavailable RENATA, Eric URBINA MD Unavailable Unavailable RENATA, Eric URBINA MD Unavailable Unavailable RENATA, Eric URBINA MD Unavailable Unavailable RENATA, Eric URBINA MD Unavailable Unavailable RENATA, Eric URBINA MD Unavailable Unavailable RENATA, Eric URBINA MD Unavailable Unavailable RENATA, Eric URBINA MD Unavailable Unavailable RENATA, Eric URBINA MD Unavailable Unavailable RENATA, Eric URBINA MD Unavailable Unavailable RENATA, Eric URBINA MD Unavailable Unavailable RENATA, Eric URBINA MD Unavailable Unavailable RENATA, Eric URBINA MD Unavailable Unavailable RENATA, Eric URBINA MD Unavailable Unavailable RENATA, Eric URBINA MD Unavailable Unavailable RENATA, Eric URBINA MD Unavailable Unavailable RENATA, Eric URBINA MD Unavailable Unavailable RENATA, Eric URBINA MD Unavailable Unavailable Eric YANEZ MD Unavailable Unavailable Eric YANEZ MD Unavailable Unavailable Eric YANEZ MD Unavailable Unavailable Sarah CHINCHILLA MD Unavailable Unavailable Sarah CHINCHILLA MD Unavailable Unavailable Sarah CHINCHILLA MD Unavailable Unavailable Sarah CHINCHILLA MD Unavailable Unavailable Sarah CHINCHILLA MD Unavailable Unavailable Sarah CHINCHILLA MD Unavailable Unavailable Sarah CHINCHILLA MD Unavailable Unavailable Sarah CHINCHILLA MD Unavailable Unavailable Sarah CHINCHILLA MD Unavailable Unavailable Sarah CHINCHILLA MD Unavailable Unavailable Sarah CHINCHILLA MD Unavailable Unavailable Sarah CHINCHILLA MD Unavailable Unavailable Sarah CHINCHILLA MD Unavailable Unavailable Sarah CHINCHILLA MD Unavailable Unavailable Sarah CHINCHILLA MD Unavailable Unavailable Sarah CHINCHILLA MD Unavailable Unavailable Sarah CHINCHILLA MD Unavailable Unavailable Sarah CHINCHILLA MD Unavailable Unavailable Sarah CHINCHILLA MD Unavailable Unavailable Sarah CHINCHILLA MD Unavailable Unavailable Sarah CHINCHILLA MD Unavailable Unavailable Sarah CHINCHILLA MD Unavailable Unavailable Sarah CHINCHILLA MD Unavailable Unavailable Sarah CHINCHILLA MD Unavailable Unavailable Sarah CHINCHILLA MD Unavailable Unavailable Sarah CHINCHILLA MD Unavailable Unavailable Sarah CHINCHILLA MD Unavailable Unavailable Sarah CHINCHILLA MD Unavailable Unavailable Sarah CHINCHILLA MD Unavailable Unavailable Sarah CHINCHILLA MD Unavailable Unavailable Sarah CHINCHILLA MD Unavailable Unavailable Sarah CHINCHILLA MD Unavailable Unavailable Sarah CHINCHILLA MD Unavailable Unavailable Kassidy Brewer BEEF CATTLE GRAZIER BEEF CATTLE GRAZIER Unavailable Unavailable Dudley Black MD Unavailable Unavailable Dudley Black MD Unavailable Unavailable Dudley Black MD Unavailable Unavailable Dudley Black MD Unavailable Unavailable Dudley Black MD Unavailable Unavailable Dudley Black MD Unavailable Unavailable Dudley Black MD Unavailable Unavailable Dudley Black MD Unavailable Unavailable Dudley Black MD Unavailable Unavailable Dudley Black MD Unavailable Unavailable Dudley Black MD Unavailable Unavailable Dudley Black MD Unavailable Unavailable Dudley Black MD Unavailable Unavailable Black, Dudley Abreu MD Unavailable Unavailable Black, Dudley Abreu MD Unavailable Unavailable Black, Dudley Abreu MD Unavailable Unavailable Black, Dudley Abreu MD Unavailable Unavailable Black, Dudley Abreu MD Unavailable Unavailable Black, Dudley Abreu MD Unavailable Unavailable Black, Dudley Abreu MD Unavailable Unavailable Black, Dudley Abreu MD Unavailable Unavailable Black, Dudley Abreu MD Unavailable Unavailable Black, Dudley Abreu MD Unavailable Unavailable Black, Dudley Abreu MD Unavailable Unavailable Black, Dudley Abreu MD Unavailable Unavailable Black, Dudley Abreu MD Unavailable Unavailable Black, Dudley Abreu MD Unavailable Unavailable Black, Dudley Abreu MD Unavailable Unavailable Black, Dudley Abreu MD Unavailable Unavailable Black, Dudley Abreu MD Unavailable Unavailable Black, Dudley Abreu MD Unavailable Unavailable Black, Dudley Abreu MD Unavailable Unavailable Black, Dudley Abreu MD Unavailable Unavailable Black, Dudley Abreu MD Unavailable Unavailable Black, Dudley Abreu MD Unavailable Unavailable Black, Dudley Abreu MD Unavailable Unavailable Black, Dudley Abreu MD Unavailable Unavailable Black, Dudley Abreu MD Unavailable Unavailable Black, Dudley Abreu MD Unavailable Unavailable Black, Dudley Abreu MD Unavailable Unavailable Black, Dudley Abreu MD Unavailable Unavailable Black, Dudley Abreu MD Unavailable Unavailable Black, Dudley Abreu MD Unavailable Unavailable Black, Dudley Abreu MD Unavailable Unavailable Black, Dudley Abreu MD Unavailable Unavailable Black, Dudley Abreu MD Unavailable Unavailable Black, Dudley Abreu MD Unavailable Unavailable Black, Dudley Abreu MD Unavailable Unavailable Black, Dudley Abreu MD Unavailable Unavailable Black, Dudley Abreu MD Unavailable Unavailable ROBLES, BELLE GLEN RPA-C Unavailable Unavailable ROBLES, BELLE GLEN RPA-C Unavailable Unavailable ROBLES, BELLE GLEN RPA-C Unavailable Unavailable ROBLES, BELLE GLEN RPA-C Unavailable Unavailable ROBLES, BELLE GLEN RPA-C Unavailable Unavailable ROBLES, BELLE GLEN RPA-C Unavailable Unavailable ROBLES, BELLE GLEN RPA-C Unavailable Unavailable ROBLES, BELLE GLEN RPA-C Unavailable Unavailable ROBLES, BELLE GLEN RPA-C Unavailable Unavailable ROBLES, BELLE GLEN RPA-C Unavailable Unavailable ROBLES, BELLE GLEN RPA-C Unavailable Unavailable ROBLES, BELLE GLEN RPA-C Unavailable Unavailable ROBLES, BELLE GLEN RPA-C Unavailable Unavailable ROBLES, BELLE GLEN RPA-C Unavailable Unavailable ROBLES, BELLE GLEN RPA-C Unavailable Unavailable ROBLES, BELLE GLEN RPA-C Unavailable Unavailable ROBLES, BELLE GLEN RPA-C Unavailable Unavailable ROBLES, BELLE GLEN RPA-C Unavailable Unavailable ROBLES, BELLE GLEN RPA-C Unavailable Unavailable ROBLES, BELLE GLEN RPA-C Unavailable Unavailable ROBLES, BELLE GLEN RPA-C Unavailable Unavailable ROBLES, BELLE GLEN RPA-C Unavailable Unavailable ROBLES, BELLE GLEN RPA-C Unavailable Unavailable ROBLES, BELLE GLEN RPA-C Unavailable Unavailable ROBLES, BELLE GLEN RPA-C Unavailable Unavailable ROBLES, BELLE GLEN RPA-C Unavailable Unavailable ROBLES, BELLE GLEN RPA-C Unavailable Unavailable ROBLES, BELLE GLEN RPA-C Unavailable Unavailable ROBLES, BELLE GLEN RPA-C Unavailable Unavailable ROBLES, BELLE GLEN RPA-C Unavailable Unavailable ROBLES, BELLE GLEN RPA-C Unavailable Unavailable ROBLES, BELLE GLEN RPA-C Unavailable Unavailable ROBLES, BELLE GLEN RPA-C Unavailable Unavailable ROBLES, BELLE GLEN RPA-C Unavailable Unavailable ROBLES, BELLE GLEN RPA-C Unavailable Unavailable ROBLES, BELLE GLEN RPA-C Unavailable Unavailable ROBLES, BELLE GLEN RPA-C Unavailable Unavailable ROBLES, BELLE GLEN RPA-C Unavailable Unavailable ROBLES, BELLE GLEN RPA-C Unavailable Unavailable Rolince MS ANP, Denise Unavailable Unavailable Rolince MS ANP, Denise Unavailable Unavailable [facility], RFROST ROBLES PA GLEN Unavailable Unavailable Re-disclosure Warning The records that you are about to access may contain information from federally-assisted alcohol or drug abuse programs. If such information is present, then the following federally mandated warning applies: This information has been disclosed to you from records protected by federal confidentiality rules (42 CFR part 2). The federal rules prohibit you from making any further disclosure of this information unless further disclosure is expressly permitted by the written consent of the person to whom it pertains or as otherwise permitted by 42 CFR part 2. A general authorization for the release of medical or other information is NOT sufficient for this purpose. The Federal rules restrict any use of the information to criminally investigate or prosecute any alcohol or drug abuse patient.The records that you are about to access may contain highly sensitive health information, the redisclosure of which is protected by Article 27-F of the [facility] Public [facility] law. If you continue you may have access to information: Regarding HIV / AIDS; Provided by facilities licensed or operated by the [facility] Office of Mental Health; or Provided by the [facility] Office for People With Developmental Disabilities. If such information is present, then the following [facility] mandated warning applies: This information has been disclosed to you from confidential records which are protected by state law. State law prohibits you from making any further disclosure of this information without the specific written consent of the person to whom it pertains, or as otherwise permitted by law. Any unauthorized further disclosure in violation of state law may result in a fine or group home sentence or both. A general authorization for the release of medical or other information is NOT sufficient authorization for further disc losure. Encounters Encounter Providers Location Date Indications Data Source(s ) Outpatient Attender: SOLEDAD DRISCOLL [facility] 01/31 03:50:00 PM EDT [facility] Outpatient Attender: GLEN VÁSQUEZ [facility] 02/19/2020 11:18:02 AM EDT [facility] Outpatient Attender: SOLEDAD DRISCOLL [facility] 01/31 11:13:00 AM EDT [facility] Outpatient Attender: GLEN VÁSQUEZ [facility] 02/19/2020 11:02:04 AM EDT [facility] Outpatient Attender: SOLEDAD DRISCOLL [facility] 01/31 04:39:02 PM EDT [facility] Outpatient Attender: GLEN VÁSQUEZ [facility] 02/18/2020 04:39:02 PM EDT [facility] Outpatient Attender: SOLEDAD DRISCOLL [facility] 01/2020 10:26:00 AM EDT [facility] Outpatient Attender: SOLEDDA DRISCOLL [facility] 10/2019 05:08:01 PM EDT [facility] Outpatient Attender: GLEN VÁSQUEZ [facility] 02/06/2020 05:07:59 PM EDT [facility] Outpatient Attender: SOLEDAD DRISCOLL [facility] 10/2019 11:14:01 AM EDT [facility] Outpatient Attender: SOLEDAD DRISCOLL [facility] 05/2019 03:18:00 PM EDT [facility] Outpatient Attender: SOLEDAD DRISCOLL [facility] 01/02 08:21:03 AM EDT [facility] Outpatient Attender: SOLEDAD ROBLES KLEVER DRISCOLL [facility] 01/01 01:38:01 PM EDT [facility] Outpatient Attender: GLEN ROBLES RPA-C [facility] 01/12/2020 03:52:02 PM EDT [facility] Outpatient Attender: NASREEN PARMINDER [facility] 07/2019 09:00:00 AM EDT [facility] Outpatient Attender: NASREEN PARMINDER [facility] 05/2019 09:00:00 AM EDT [facility] ([facility] Outpatient Attender: SOLEDAD ROBLES KLEVER DRISCOLL [facility] 10/01 09:07:02 AM EDT [facility] Outpatient Attender: SOLEDAD ROBLES KLEVER GLEN [facility] 07/2019 10:36:01 AM EDT [facility] Outpatient Attender: SOLEDAD ROBLES KLEVER GLEN [facility] 06/2019 09:01:01 AM EDT [facility] Recurring Patient Attender: Denise Mcknight MS ANPReferrer: CIARA YANEZ MD 09/22/2019 10:27:43 AM EDT [facility] [place] Outpatient Attender: SOLEDAD ROBLES KLEVER GLEN [facility] 08/31 02:32:00 PM EDT [facility] Outpatient Attender: Brady Armendariz/Alli/Marshal/Tony suarez 09/18/2019 01:45:00 PM EDT [facility] Out[facility] Attender: SOLEDAD ROBLES KLEVER DRISCOLL [facility] 08/02 08:25:02 AM EDT [facility] Outpatient 08/23/2019 05:45:00 AM EDT [facility] Outpatient Attender: GLEN ROBLES RPA-C [facility] 08/21/2019 03:48:02 PM EDT [facility] Outpatient Attender: SOLEDAD ROBLES KLEVER DRISCOLL [facility] 08/01 01:19:02 PM EDT [facility] Outpatient 08/10/2019 06:05:00 AM EDT [facility] Outpatient Attender: Brady Armendariz/Alli/Marshal/Tony suarez 07/27/2019 01:15:00 PM EDT [facility] Outpatient Attender: SOLEDAD DRISCOLL [facility] 07/02 03:20:01 PM EDT [facility] 12:57:01 PM EDT [facility] 11:04:01 AM EDT [facility] Outpatient Attender: SOLEDAD ROBLES PA GLEN [facility] 07/02 10:56:01 AM EDT [facility] Outpatient Attender: GLEN MORALESST RPA-C [facility] 07/19/2019 02:20:01 PM EDT [facility] Outpatient Attender: SOLEDAD DRISCOLL [facility] 07/01 01:15:01 PM EDT [facility] Outpatient Attender: GLEN MORALESST RPA-C [facility] 07/13/2019 01:34:02 PM EDT [facility]: [facility] 10[facility]00 AM EDT [facility] Out[facility] Attender: WAGNER Armendariz/Alli/Jj barahona/Reinham 07/10/2019 02:50:00 PM EDT [facility] ([facility] Outpatient Attender: MARK FLORES 06/22/2019 09:40:25 A M EST [facility] Outpatient Attender: NASREEN ZURITA [facility] 06/04 07:15:00 AM EST [facility] Outpatient 06/15/2019 12:55:00 PM EST [facility] Outpatient Attender: Kassidy FLORES 06/12/2019 08:2 3:02 AM EST [facility] Outpatient Attender: Kassidy WORLEYP FP 06/12/2019 08:0 6:01 AM [facility] Outpatient Attender: MARK WORLEYP FP 06/07/2019 11:08:02 A [facility] Outpatient Attender: MARK Brewer BEEF CATTLE GRAZIER FP 06/07/2019 10:16:00 A [facility] Outpatient Attender: Kassidy WORLEYP FP 05/30/2019 08:5 0:05 AM [facility] Outpatient Attender: MARK Brewer BEEF CATTLE GRAZIER FP 05/24/2019 09:01:10 P [facility] Outpatient Attender: Kassidy WORLEYP FP 05/24/2019 02:3 6:01 PM [facility] Outpatient Attender: MARK WORLEYP FP 05/24/2019 09:53:00 A [facility] Outpatient Attender: MARK Brewer BEEF CATTLE GRAZIER FP 05/24/2019 09:52:00 A [facility] Outpatient 05/23/2019 07:12:00 PM [facility] Outpatient Attender: MARK Brewer BEEF CATTLE GRAZIER FP 05/22/2019 01:49:00 P [facility] Outpatient Attender: Kassidy WORLEYP FP 05/22/2019 01:4 8:01 PM [facility] Outpatient Attender: MARK WORLEYP FP 05/22/2019 01:47:01 P [facility] Outpatient Attender: RACHEL LUCAS MD FP 05/13/2019 08:42:02 P [facility] Outpatient Attender: RACHEL LUCAS MD FP 05/13/2019 08:42:01 P [facility] Outpatient Attender: RACHEL LUCAS MD FP 05/12/2019 09:01:06 P [facility] Outpatient Attender: RACHEL LUCAS MD FP 05/12/2019 04:28:00 P [facility] Outpatient Attender: RACHEL LUCAS MD FP 05/12/2019 03:55:00 P [facility] Outpatient Attender: RACHEL LUCAS MD FP 05/12/2019 03:53:01 P [facility] Outpatient Attender: RACHEL LUCAS MD FP 05/12/2019 03:52:01 P [facility] Outpatient Attender: RACHEL WALTON 05/12/2019 03:01:02 [facility] Outpatient Attender: RACHEL LUCAS MD 05/12/2019 03:00:02 [facility] Medications Medication Brand Name Start Date Product Form Dose Route Admi nistrative Instructions Pharmacy Instructions Status Indications Reaction Description Data Source(s) Inject Dexamthosone Phosphate 74232-422-40 11/01/2019 12:00:00 A M EDT completed [facility] ([facility] Medication administered onsite Inject Triamcinolone Acetonide 10 ML, [facility] 1349-7842-49 11/01/2019 12:00:00 AM EDT completed [facility] ([facility] Medication administered onsite Albuterol 0.83 MG/ML Inhalant Solution Albuterol Sulfate 0 09/18/2019 12:00:00 AM EDT active [facility] ([facility], ) Fluticasone Propionate/Salmeterol Fluticasone Propionate/Jr meterol 07/27/2019 12:00:00 AM EDT RESPIRATORY active [facility] ([facility]) Inject Triamcinolone Acetonide 10 ML, [facility] 5124-5334-30 07/12/2019 12:00:00 AM EDT completed [facility] ([facility] Medication administered onsite Inject Dexamthosone Phosphate 11733-740-07 07/12/2019 12:00:00 A M EDT completed [facility] ([facility] Medication administered onsite Ondansetron 4 MG Oral Tablet [Zofran] Zofran 07/10/2019 12:00:00 AM EDT ORAL completed [facility] ([facility], ) Bisacodyl 5 MG Delayed Release Oral Tablet [Dulcolax] Dulcol ax 07/10/2019 12:00:00 AM EDT completed [facility] ([facility]) Omeprazole 40 MG Delayed Release Oral Capsule Omeprazole 07/10/2019 12:00:00 AM EDT active [facility] ([facility], ) Clenpiq Clenpiq 07/10/2019 12:00:00 AM EDT active [facility] ([facility], ) POLYETHYLENE GLYCOL 3350 105 MG/ML / Pot assium Chloride 0.12086 MEQ/ML / Sodium Bicarbonate 0.017 MEQ/ML / Sodium Chloride 0.0479 MEQ/ML Oral Solution [GaviLyte-N] Gavilyte-N With Flavor Pack 07/10/2019 12:00:00 AM EDT completed [facility] ([facility], ) Naproxen 500 MG Oral Tablet Naproxen 06/22/2019 12:00:00 AM EST active [facility] ciclopirox 80 MG/ML Topical Solution Ciclopirox 06/22/2019 12:00:00 A M EST active [facility] ([facility] Insurance Providers Payer name Policy type / Coverage type Policy ID Covered green party ID Covered green party's relationship to campa Policy Campa Plan Information [facility] COMMUNITY PLAN [facility] [id number] SP [id number] [facility] O [id number] S [id number] Medicaid [facility] S D [id number] SELF [id number] Ian Medicaid F [id number] SELF [id number] [facility] Care [facility] Community Plan P [id number] S [id number] Medicaid S [id number] S [id number] [facility] P [id number] S [id number] [facility] COMMUNITY PLAN [facility] [id number] SP [id number] [facility] COMMUNITY PLAN [facility] [id number] SP [id number] [facility] [id number] SP [id number] [facility] P [id number] S [id number] Self Pay P [id number] S [id number] Self Pay P UNAVAILABLE S UNAVAILA BLE [facility] P [id number] S [id number] Medicaid S [id number] S [id number] [facility] P [id number] S [id number] [facility] COMMUNITY PLAN [facility] [id number] SP [id number] IAN I [id number] Self [id number] IAN [id number] SP [id number] [place] [id number] SP [id number] UNAVAILABLE SP UNAVA ILABLE IAN MEDICAID [id number] Asuncion 7 [id number] IAN [id number] SP [id number] IAN [id number] SP [id number] [place]ARE [place] [id number] S [id number] MEDICAID GME W [id number] S [id number] A IAN [id number] SP [id number] MEDICAID [facility] [id number] SP AM [id number] [facility] FHP COMMUNITY PLAN [id number] SP [id number] MEDICAID [facility] [id number] SP AM [id number] [facility] [address] [id number] [id number] [facility] [address] [id number] SP [id number] [facility] [id number] [facility] [id number] SP [id number] MEDICAID [facility] [id number] SP AM [id number] [facility] [address] [id number] SP [id number] Problems, Conditions, and Diagnoses Code Display Name Description Problem Type Effective Dates Data Source(s) V74.5 Screening examination for venereal disea se Screening examination for venereal disease 02/19/2020 11:16:51 AM EDT [facility] V05.9 Encounter for immunization Encounter for immunization 02/19/2020 11:01:07 AM EDT [facility] H70.11 Chronic mastoiditis, right ear Chronic mastoiditis, ri ght ear 02/19/2020 11:01:07 AM EDT [facility] V76.12 Encounter for screening mammogram for ma lignant neoplasm of breast Encounter for screening mammogram for malignant neoplasm of breast 02/19/2020 11:01:07 AM EDT [facility] V76.2 Screening for malignant neoplasms of the cervix Screening for malignant neoplasms of the cervix 02/19/2020 11:01:07 AM EDT [facility] Z01.419 Encounter for gynecological examination (general) (routine) without abnormal findings Encounter for gynecological examination (general) (routine) without abnormal findings 02/19/2020 11:01:07 AM EDT [facility] [id number] Infective otitis externa of right ear In fective otitis externa of right ear 01/12/2020 03:51:01 PM EDT [facility] K11.9 Disease of salivary gland, unspecified D isease of salivary gland, unspecified 01/12/2020 03:51:01 PM EDT [facility] right 305.1 Nicotine dependence, cigarettes, uncompl icated Nicotine dependence, cigarettes, uncomplicated 01/12/2020 03:51:01 PM EDT [facility] [id number] Pain in limb Pain in limb Problem 12/13/2019 12:00:00 A M EDT [facility] ([facility] [id number] Edema Edema Problem 12/13/2019 12:00:00 AM ED T [facility] ([facility] Other synovitis and tenosynovitis, left ankle and foot Other synovitis and tenosynovitis, left ankle and foot Problem 11/14/2019 12:00:00 AM EDT - 12/13/2019 12:00:00 AM EDT [facility] ([facility] 785.1 Intermittent palpitations Intermittent palpitations 08/21/2019 03:46:54 PM EDT [facility] 69944093 Chest pain, unspecified Chest pain, unspecified 08/21/2019 03:46:54 PM EDT [facility] [id number] Influenza A virus present Influenza A virus present 07/19/2019 02:19:15 PM EDT [facility] 8090482 Migraine with aura, not intractable, wit hout status migrainosus Migraine with aura, not intractable, without status migrainosus 07/13/2019 01:32:47 PM EDT [facility] 780.4 Dizziness Dizziness 07/13/2019 01:32:47 PM ED T [facility] [id number] Onychomycosis Onychomycosis Problem 07/01/2019 12 :00:00 AM EST - 12/13/2019 12:00:00 AM EDT [facility] ([facility] [id number] Plantar fascial fibromatosis Plantar fascial fibromato sis Problem 07/01/2019 12:00:00 AM EST [facility] ([facility] [id number] Pain of left heel Pain of left heel 0 06/07/2019 11:07:37 AM [facility] R68.2 Dry mouth, unspecified Xerostomia 06/07/2019 11 :07:37 AM [facility] 300.09 Anxiety depression Anxiety depression 0 08:41:00 PM [facility] 786.07 Expiratory wheezing Expiratory wheezing 020 04:26:52 PM [facility] [id number] Chronic obstructive pulmonary disease, u nspecified Chronic obstructive pulmonary disease, unspecified 05/12/2019 04:26:52 PM EST [facility] 09047454 Acute upper respiratory infection, unspe cified Acute upper respiratory infection, unspecified 05/12/2019 04:26:52 PM [facility] 786.2 Cough Cough 05/12/2019 04:26:52 PM [facility] Surgeries/Procedures Procedure Description Date Indications Data Source(s) Strapping Foot Or Ankle 12/04/2019 12:00:00 AM EDT [facility] ([facility] INJECTION 1 TENDON SHEATH/LIGAMENT APONEUROSIS 12:00:00 AM EDT [facility] ([facility] Spirometry 07/27/2019 12:00:00 AM EDT M [facility] ([facility], ) INJECTION 1 TENDON SHEATH/LIGAMENT APONEUROSIS 020 12:00:00 AM EDT [facility] Strapping Foot Or Ankle 06/22/2019 12:00:00 AM EST [facility] ([facility] Results ID Date Data Source [id number] 05/12/2020 10:00:00 AM EST [facility] Name Value Range Interpretation Code Description Data Birgit rce(s) Supporting Document(s) SARS coronavirus 2 RNA Not Detected [facility] This lab was ordered by [facility] and reported by [facility]. ID Date Data Source [id number] 02/19/2020 09:51:04 AM EDT [facility] Measurements & CalculationsHeight: 65 inches (5 ft. 5 in.) 165.10 cm Weight: 195.6 pounds 88.91 kg Body Mass Index (BMI): 32.67BMI Interpretation: ObeseBody Surface Area (BSA): 1.96Weight Management Education Done (Nutrition/Physical Activity)Vital SignsTemperature: 98.2F 36.78C tympanic Pulse Rate: 85 beats/minuteRespiratory Rate: 18 respirations/minuteBlood Pressure: 119/83 right arm sitting automaticO2 Saturation: 97% Vital Signs performed by: Anai Luke LPN, February 19, 2020 9:52 AMAdult Questionnaire1) Does the patient have a long-term health problem with heart disease, lung disease, asthma, kidney disease, metabolic disease (e.g., diabetes), anemia, or other blood disorder? No2) Does the patient have allergies to medications, food, a vaccine component, or latex? No3) Does the patient have cancer, leukemia, AIDS, or any other immune system problem? No4) D oes the patient live with or expect to have close contact with a person whose immune system is severely compromised and who must be in protective isolation (e.g., an isolation room of a bone marrow transplant unit)? No5) Does the patient take cortisone, prednisone, other steroids, or anticancer drugs, or has the patient had radiation treatments? No6) During the past year, has the patient received a transfusion of blood or blood products, or been given immune (gamma) globulin or an antiviral drug? No7) For women: Is the patient or is there a chance she could become during the next month? No8) Has the patient ever had a serious reaction to a vaccine in the past? No9) Has the patient had a seizure or a brain or other nervous system problem? No10) Has the patient received any vaccinations in the past 4 weeks? No11) Is the patient older than age 49 years? No12) Is the patient sick today? No13) Vaccine information given and explained to patient? YesVaccines Administered/Enter ed:Vaccination Group: InfluenzaSeries: 1Vaccination: Flulaval Quadrivalent Intramuscular Suspension Prefilled Syringe 0.5 MLMfr / Lot# / Exp.Date: [employer] / [id number] 10/30/2020mt. Given / Route / Site: 0.5 mL / IM / Left DeltoidNDC / CVX: [id number] / 150Administered Date: 02/19/2020 11:05VFC Eligibility: Not VFC EligibleVIS Date: 12/15/2018Comments: Administered by: Anai Luke LPN Initial Intake Information From: patientRoom #: 2Infectious Disease / Travel ScreeningRecent travel for you or any close contacts? NoHave you had any close contact with anyone diagnosed with or under investigation for COVID-19 (coronavirus)? NoFever? NoRespiratory symptoms: cough, cold, congestion, shortness of breath, difficulty breathing? NoLoss of smell? NoLoss of taste? NoSmoking, Tobacco, Vaping or Smoke Exposure StatusSmoke Status: current every day smokerTobacco Use: YesAdv to Quit: YesDo you vape? NoPassive Smoke Exposure: YesMenstrual HistoryAge at Menarche: 11Any possibility of ? NoComments: partial hysterectomyHealthcare HistorySince your last office visit...Have you been admitted to the hospital? NoHave you been to an emergency room (ER) or urgent care clinic? Yes - chest painEmergency room (ER) or urgent care date reported today: 02/06/2020Have you seen another healthcare provider? NoHave you seen a dentist? NoIntake performed by: Anai Luke LPN, February 19, 2020 9:53 AMRate Your HealthIn general, would you say your health is? GoodPain AssessmentAre you currently having any pain which... You would like your provider to address? No Affects your activity level? NoDepression Screening - PHQ-2Over the last two weeks, have you... Had little interest or pleasure in doing things? More than half the days Been feeling down, depressed, or hopeless? More than half the days PHQ-2 Score: 4Anxiety Screening - ONIEL-2Over the last two weeks, have you been... Feeling nervous, anxious, or on edge? Several days Unable to stop or control worrying? Several days ONIEL-2 Score: 2Food InsecurityWithin the past year...Did you worry whether your food would run out before you got money to buy more? Sometimes trueWas there a time when the food you bought didn't last and you didn't have money to get more? Sometimes trueGeneralized Anxiety Disorder 7-Item Screening (ONIEL- 7)Answer Guide:0 = Not at all1 = Several days2 = Over half the days3 = Nearly every dayOver the last 2 weeks, how often have you been bothered by the following problems?Feeling nervous, anxious, or on edge: 1Not being able to stop or control worryinWorrying too much about different things: 1Trouble relaxinBeing so restless that it's hard to sit still: 1Becoming easily annoyed or irritable: 1Feeling afraid as if something awful might happen: 1Answer Guide:0 = Not difficult at all1 = Somewhat difficult2 = Very difficult3 = Extremely difficultHow difficult have these made it for you to do your work, take care of things at home, or get along with other people? 1GAD-7 Screening Results ONIEL-2 Score: 2GAD-7 Score: 7Functional Impairment: Somewhat difficultRecommendation: Mild anxietyPHQ-9 1. Over the last 2 weeks, patient reports the following frequency of symptoms: a. Little interest or pleasure in doing things -More than half the days b. Feeling down, depressed, or hopeless -More than half the days c. Trouble falling asleep, staying asleep, or sleeping too much -More than half the days d. Feeling tired or having little energy -More than half the days e. Poor appetite or overeating -More than half the days f. Feeling bad about yourself, feeling that you are a failure, or feeling that you have let yourself or your family down -More than half the days g. Trouble concentrating on things such as reading the newspaper or watching television - More than half the days h. Moving or speaking so slowly that other people could have noticed. Or being so fidgety or restless that you have been moving around a lot more than usual -More than half the days i. Thinking that you would be better off or that you want to hurt yourself in some way -Not at all2. If you checked off any problems, how difficult have these problems made it for you to do your work, take care of things at home, or get along with other people? -Very DifficultToday's PHQ-9 Results Score: 16 Severity: Moderately Severe Diagnosis Recommendation: Major Depression Functional Impairment: Very DifficultToday's Follow-Up Action Depression follow-up done. Follow-Up Action: Continue To Take Medications as PrescribedScreening, Brief Intervention, & Referral to Treatment (SBIRT)Pre-Screening Questions How many times have you have 4 or more drinks in a day? 0How many times have you used an illegal drug or used a prescription medication for a non-medical reason? 0Performed by: Anai Luke LPN, February 19, 2020 9:54 AMPatient History Medical History:Anxiety/Depressionfibromyalgiadegenerative disc diseasecarpal tunnelvertigodecompression in shoulderPE 2016-Crousecysts on liverPTSDrecurrent ear infectionsSurgical History:Hysterectomy (Partial)carpal tunneldecompression in shoulderback surgeryrt ear surgeriesFamily History:Depression (Mother)Dementia (Mother)Cancer - Skin, A fib (Paternal Grandfather)Cancer - Unknown (Maternal Grandmother)Diabetes (Maternal Grandfather)A fib - FatherSocial/Personal History: Advised to Quit/Tobacco Education: YesOB Past History History Total Preg.: 7 Full Term: 6 Spontaneous Ab: 1 LivinMenstrual History Age at Menarche: 11Use Contraception? NoExperienced Menopause? YesMenopause type: SurgicalChief ComplaintPap smearHistory of Present Illness (HPI)Pt is a 44 y/o female, presents for routine pap smear.Last pap was around 8 years ago, negative per patient. Hx of abnormal previously, pt reports dysplasia 1994. Hysterectomy around 7 years ago due to heavy bleeding, reports they told her that they left her ovaries. Last mammogram was around [id number] in [facility].Pt had routine labs done on 02/06/2020: slightly elevated LDL, otherwise normal labs. Pt reports previously she has been told she only has one kidney, no issues or clear knowledge of when/where this was told to her. Pt admits to stopping mood medications, reports she will restart. Admits they were helpful, doesn't have a particular reason for stopping them. Pt plans for smoking quit date to be 2020. Transitions of Care InboundProblem ReviewProblem List was reviewed and/or updated during this visit.Medication Reconciliation & ReviewMedication List was reviewed and/or updated during this visit, including review of any kdam-efn-ktynisd medications, herbal therapies, and/or supplements.Allergy ReviewAllergy List was reviewed and/or updated during this visit.Adult Preventive CareScreening Tobacco Screening: Smoking Status: current every day smoker (02/19/2020) Tobacco Use: Currently (02/19/2020) Advised to Quit: Yes (02/19/2020)Labs/Meds/Other Counseling-Nutrition and Physical Activity:BMI Interpretation: Obese (02/19/2020) Counseling: Done (02/19/2020) Physical Activity: Done (02/19/2020)Review of Systems General: Denies chills, dizziness, fatigue, fever, feeling ill. Cardiovascular: Denies chest pain, palpitations, feeling faint, peripheral edema. Respiratory: Denies cough, difficulty breathing, shortness of breath. Gastrointestinal: Denies nausea, vomiting, diarrhea, pain or discomfort, change in bowel habits. Genitourinary: Denies pa in with urination, burning with urination, blood in urine, pelvic pain, vaginal discharge, vaginal itching. Skin: Denies rash, suspicious lesions. Neurologic: Denies weakness, feeling faint. Psychiatric: Complains of see HPI, depression, anxiety. Physical ExamGeneral Appearance: well nourished, well hydrated, no acute distressEyes, External: conjunctivae and lids normal, EOMIThyroid: no nodules, masses, tenderness, or enlargementBreasts, Inspection: no asymmetry, skin changes, or nipple dischargeBreasts, Palpation: no masses or tendernessPeripheral Circulation: no clubbing, cyanosis, edema, or v aricositiesAbdomen: soft, non-tender, no massesExternal Genitalia: normal, no lesions or dischargeVulva: normal, no lesions or dischargeVagina: normal appearance, no discharge or lesions; no evidence of cystocele or rectoceleCervix: appears to be surgically absentUterus: surgically absentAdnexa: no masses or tendernessGait & Station: normalAxillary Nodes: no adenopathyOrientation: oriented to time, place, and personMood & Affect: mildly anxious appearing, flat affect, speech clearJudgment & Insight: intactChaperone During Exam: Morgan Higgins Management Plan Transitions of CareInboundRate Your HealthIn general, would you say your health is? GoodAssessment & Plan Problems:Added: Encounter for gynecological examination (general) (routine) without abnormal findings (PJU62-U71.419) Assessment: Instructions: You have had your PAP smear done today to test for cervical cancer. The results typically take about 7 days to return. You will be notified of your results, but you should expect a phone call if your results are abnormal in any way. If pap is negative for cervical cells, then no further paps will be necessary. Recommend annual well woman and breast exams.Screening for malignant neoplasms of the cervix (ICD-V76.2) (MDF96-G66.4) Assessment: Instructions: As above.Encounter for screening mammogram for malignant neoplasm of breast (ICD- V76.12) (QJV42-Y77.31) Assessment: Instructions: Mammo ordered.Chronic mastoiditis, right ear (ICD-383.1) (SWN35-B36.11) Assessment: Instructions: Finding on recent CT scan. Referral to ENT.Encounter for immunization (ICD- V05.9) (GFG12-H73) Assessment: Instructions: Flu vaccine today.Assessed:Breast screening, unspecified (ICD-V76.10) (VJL93-P67.39) Assessment: Instructions: Clinical breast exam was performed in the office today, no abormalities identified. Patient instructed on how to perform self breast exams at home and recommended to perform this monthly. Notify the office of any concerns.Disease of salivary gland, unspecified (THB62-K59.9): right Assessment: Instructions: Referral for ENT to evaluate dry mouth further.Xerostomia (ICD-527.7) (TEO91-E78.2) Assessment: Instructions: As above.Nicotine dependence, cigarettes, uncomplicated (AZR08-W53.210) Assessment: Instructions: Chantix with quit date of 2020. Will see back 1 month after quit date.Schizoaffective disorder, bipolar type (ICD-295.70) (YFA01-X00.0) Assessment: Instructions: Please restart your prior mood medications as you found these helpful previously.Anxiety state (ICD-300.00) (UOR41-J55.1) Assessment: Instructions: As above.Migraine with aura, not intractable, without status migrainosus (HDA66-K82.109) Assessment: Instructions: Reschedule telehealth appointment wi neurology.Removed:Infective otitis externa of right ear (AAO84-Z84.391)Patient Instructions/Care Plan: Encounter for gynecological examination (general) (routine) without abnormal findings: You have had your PAP smear done today to test for cervical cancer. The results typically take about 7 days to return. You will be notified of your results, but you should expect a phone call if your results are abnormal in any way. If pap is negative for cervical cells, then no further paps will be necessary. Recommend annual well woman and breast exams.Screening for malignant neoplasms of the cervix: As above.Encounter for screening mammogram for malignant neoplasm of breast: Mammo ordered.Breast screening- unspecified: Clinical breast exam was performed in the office today, no abormalities identified. Patient instructed on how to perform self breast exams at home and recommended to perform this monthly. Notify the office of any concerns.Disease of salivary gland- unspecified: Referral for ENT to evaluate dry mouth furthe r.Xerostomia: As above.Chronic mastoiditis- right ear: Finding on recent CT scan. Referral to ENT.Nicotine dependence- cigarettes- uncomplicated: Chantix with quit date of 2020. Will see back 1 month after quit date.Schizoaffective disorder- bipolar type: Please restart your prior mood medications as you found these helpful previously.Anxiety state: As above.Migraine with aura- not intractable- without status migrainosus: Reschedule telehealth appointment wi neurology.Encounter for immunization: Flu vaccine today. Plan developed in collaboration with patient and/or familyMedications:CHANTIX STARTING MONTH CHEY 0.5 MG X 11 & 1 MG X 42 ORAL TABLETADVAIR DISKUS 100-50 MCG/DOSE INHALATION AEROSOL POWDER BREATH ACTIVATEDSERTRALINE HCL 100 MG ORAL TABLETATIVAN 1 MG ORAL TABLETLAMICTAL 25 MG ORAL TABLETSPIRIVA RESPIMAT 2.5 MCG/ACT INHALATION AEROSOL SOLUTIONINCRUSE ELLIPTA 62.5 MCG/INH INHALATION AEROSOL POWDER BREATH ACTIVATEDTOPAMAX 25 MG ORAL TABLETOMEPRAZOLE 40 MG ORAL CAPSULE DELAYED RELEASENEBULIZERALBUTEROL SULFATE (2.5 MG/3ML) 0.083% INHALATION NEBULIZATION SOLUTIONMedication Changes:Removed:OFLOXACIN 0.3 % OTIC SOLUTION-Instill 10 drops in affected ear BID x 7 days Qty: 1[Bottle] Refills: 0, CIPRO HC 0.2-1 % OTIC SUSPENSION-Instill 5 drops in right ear x 7 days Qty: 1[Bottle] Refills: 0Allergies:MORPHINE (Critical)* CYMBALTA (Critical)HYDROCODONE (Critical)Orders:Mammography - Screening -bilateral (2-view study of each breast), including computer-aided detection (CAD) when performed [CPT-15165] Preventive, Est, (40-64) [CPT-72806] ENT Consult [CPT-49883] CYTP C/V AUTO THIN LYR PREPJ SCR SYS PHYS [CPT-31202] FluLaval Quadrivalent, preservative free [CPT-87311] Follow-Up Return to clinic: in 6 weeks for follow upAdditional Follow-Up: smoking, moodClinical Visit Summa ry Declined Labs In-House Urine TestsDate/Time Collected: February 19, 2020 11:15 AMDate/Time Received: February 19, 2020 11:15 AMTest Result Reference Range Normal ValueComments: collected by [facility] for sendout Name Value Range Interpretation Code Description Data Birgit rce(s) Supporting Document(s) ID Date Data Source [id number] 02/14/2020 12:00:00 AM EDT [facility] [place] Patient Name: SHAHEEN ESPAZRA [facility] Date of : 1975[facility] Date of Exam: 02/14/2020#: Fax: [phone] EXAM: CT MAXILLOFACIAL WITHOUT CONTRASTPROCEDURE INFORMATION:Exam: CT Maxillofacial Without ContrastExam date and time: 02/14/2020 3:21 PM Age: 44 years oldClinical indication: Other: ? Salivary gland stoneTECHNIQUE: Imaging protocol: Computed tomography images of the face withoutcontrast. Radiation optimization: All CT scans at this facility use atleast one of these dose optimization techniques: automated exposurecontrol; mA and/or kV adjustment per patient size (includes targeted examswhere dose is matched to clinical indication); or iterative reconstruction.COMPARISON: No relevant prior studies available.FINDINGS:Orbital cavity: Orbits are normal. Globes are unremarkable.Bones/joints: No acute fracture. Paranasal sinuses: Normal. No air- fluidlevels.Auditory system: There is chronic right-sided mastoiditis and otitis mediawith abnormal soft tissue density in the epitympanum and Prussak's spacewith bony erosion of the scutum consistent with cholesteatoma. ENTconsultation is recommended.Soft tissues: Unremarkable.Submandibular/Parotid glands: There is mild asymmetric prominence of theleft submandibular gland which could be secondary to congenital variationversus mild sialadenitis. No discrete salivary stone is seen. Noinflammatory stranding is identified. Bilateral parotid glands are normalin size and attenuation. No salivary stone is seen.IMPRESSION:1. There is mild asymmetric prominence of the left submandibular glandwhich could be secondary to congenital variation versus mild sialadenitis.No discrete salivary stone is seen. No inflammatory stranding isidentified. Bilateral parotid glands are normal in size and attenuation. Nosalivary stone is seen.2. There is chronic right-sided mastoiditis and otitis media with abnormalsoft tissue density in the epitympanum and Prussak's space with bonyerosion of the scutum consistent with cholesteatoma. ENT consultation isrecommended.Thank you for allowing us to participate in the care of your patient.Dictated and Authenticated by: Jimbo Mckeon MD 02/15/2020 8:54 AMEastern Time ([place] & [place])FrancescaV/Ming you for referring JASKARAN ESPARZA to our office. Electronically Signed - FRANCESCA 02/15/20 13:09 Name Value Range Interpretation Code Description Data Birgit rce(s) Supporting Document(s) ID Date Data Source [id number] 02/06/2020 01:47:00 PM EDT [facility] 36.111.832.7 G/DL30.5 PG235 103.87 1012. 68.9 38.912.331.6 G/DL30.2 PG251 104.07 1012. 57.4 Name Value Range Interpretation Code Description Data Birgit rce(s) Supporting Document(s) ID Date Data Source [id number] 02/06/2020 01:47:00 PM EDT [facility] 36.111.832.7 G/DL30.5 PG235 103.87 1012. 68.9 38.912.331.6 G/DL30.2 PG251 104.07 1012. 57.4 Name Value Range Interpretation Code Description Data Birgit rce(s) Supporting Document(s) BG FASTING 92 mg/dL 70-100 [facility] TSH 1.830 microintl units/mL 0.358-3.740 N [facility] ID Date Data Source [id number] 02/06/2020 10:04:00 AM EDT [facility] 36.111.832.7 G/DL30.5 PG235 103.87 1012. 68.9 38.912.331.6 G/DL30.2 PG251 104.07 1012. 57.4 Name Value Range Interpretation Code Description Data Birgit rce(s) Supporting Document(s) ID Date Data Source [id number] 02/06/2020 10:04:00 AM EDT [facility] Name Value Range Interpretation Code Description Data Birgit rce(s) Supporting Document(s) VIT D25 TOT 25.8 ng/mL 30.0-100.0 L [facility] BG FASTING 88 mg/dL 70-100 [address] [facility] T4, FREE 0.98 ng/dL 0.76-1.46 N [facility] TSH 2.500 microintl units/mL 0.358-3.740 [facility] ID Date Data Source [id number] 02/06/2020 10:04:00 AM EDT [facility] Labs In-House Blood TestsDate/Time Colle cted: February 06, 2020 10:04 AMDate/Time Received: February 06, 2020 10:04 AMTest Result Reference Range Normal ValueComments: Labs done in office taken from the left AC without difficulty. Patient tolerated it well. Roseanna Mayberry MA, February 06, 2020 10:12 AMAssessment & Plan Orders:[id number] Vst-Est Level I [CPT-69734] 68860 - Venipuncture [CPT-26035] Name Value Range Interpretation Code Description Data Birgit rce(s) Supporting Document(s) ID Date Data Source [id number] 01/12/2020 03:10:55 PM EDT [facility] Measurements & CalculationsHeight: 65 inches (5 ft. 5 in.) 165.10 cm Weight: 196.4 pounds 89.27 kg Body Mass Index (BMI): 32.80BMI Interpretation: ObeseBody Surface Area (BSA): 1.96Weight Management Education Done (Nutrition/Physical Activity)Vital SignsTemperature: 98.5F 36.94C tympanic Pulse Rate: 84 beats/minut eRespiratory Rate: 18 respirations/minuteBlood Pressure: 145/81 right arm sitting automaticO2 Saturation: 99% Vital Signs performed by: Anai Luke LPN, January 12, 2020 3:11 PMInitial Intake Information From: patientRoom #: 2Infectious Disease / Travel ScreeningRecent travel for you or any close contacts? NoHave you had any close contact with anyone diagnosed with or under investigation for COVID-19 (coronavirus)? NoFever? NoRespiratory symptoms: cough, cold, congestion, shortness of breath, difficulty breathing? NoLoss of smell? NoLoss of taste? NoSmoking, Tobacco, Vaping or Smoke Exposure StatusSmoke Status: current every day smokerTobacco Use: YesAdv to Quit: YesDo you vape? NoPassive Smoke Exposure: YesMenstrual HistoryComments: partial hysterectomyHealthcare HistorySince your last office visit...Have you been [facility] the [facility]? [facility]: [facility]2018Have you been to an emergency room (ER) or urgent ca re clinic? No [facility] ER for chest painEmergency room (ER) or urgent care date reported today: 08/14/2019Have you seen another healthcare provider? No - pt had flu recently, still recoveryHave you seen a dentist? NoIntake performed by: Anai Luke LPN, January 12, 2020 3:12 PMRate Your HealthIn general, would you say your health is? FairPain AssessmentAre you currently having any pain which... You would like your provider to address? Yes Affects your activity level? NoDepression Screening - PHQ-2Over the last two weeks, have you... Had little interest or pleasure in doing things? Not at all Been feeling down, depressed, or hopeless? Not at all PHQ-2 Score: 0Anxiety Screening - ONIEL-2Over the last two weeks, have you been... Feeling nervous, anxious, or on edge? Several days Unable to stop or control worrying? Several days ONIEL-2 Score: 2Food InsecurityWithin the past year...Did you worry whether your food would run out before you got money to buy more? Sometimes trueWas there a time when the food you bought didn't last and you didn't have money to get more? Sometimes trueGeneralized Anxiety Disorder 7-Item Screening (ONIEL-7)Answer Guide:0 = Not at all1 = Several days2 = Over half the days3 = Nearly every dayOver the last 2 weeks, how often have you been bothered by the following problems?Feeling nervous, anxious, or on edge: 1Not being able to stop or control worryinWorrying too much about different things: 1Trouble relaxinBeing so restless that it's hard to sit still: 1Becoming easily annoyed or irritable: 1Feeling afraid as if something awful might happen: 1Answer Guide:0 = Not difficult at all1 = Somewhat difficult2 = Very difficult3 = Extremely difficultHow difficult have these made it for you to do your work, take care of things at home, or get along with other people? 1GAD-7 Screening Results ONIEL-2 Score: 2GAD-7 Score: 7Functional Impairment: Somewhat difficultRecommendation: Mild anxietyPain AssessmentLocation: right earDuration: 4-7 daysFrequency: DailyScreening, Brief Intervention, & Referral to Treatment (SBIRT)Pre-Screening Questions How many times have you have 4 or more drinks in a day? 0How many times have you used an illegal drug or used a prescription medication for a non- medical reason? 0Performed by: Anai Luke LPN, January 12, 2020 3:12 PMPatient History Medical History:Anxiety/Depressionfibromylgiadegenerative disc diseasecarpal tunnelvertigodecompression in shoulderpecysts on liverPTSDSurgical History:Hysterectomy (Partial)carpal tunneldecompression in shoulderback surgeryFamily History:Depression (Mother)Dementia (Mother)Cancer - Skin (Paternal Grandfather)Cancer - Unknown (Maternal Grandmother)Diabetes (Maternal Grandfather)Social/Personal History: Advised to Quit/Tobacco Education: YesChief ComplaintearacheHistory of Present Illness (HPI)44 yo female presents for a right earache. Pt reports right ear painful and draining for the last few days. Had crusting this morning. Previously has received Cipro HC drops for similar issues with good relief. Reports hx of recurrent ear infections. Pt states she would like to start Chantix again, was smoke free for 18 days in September 2019, but relapsed due to being around smokers in the house who are now out of the house. States her phlegm/mucus in mouth is very thick and she is having a hard time getting it up. Pt complaining of extreme dry mouth and dentist said she wasn't producing enough saliva. Pt states that the right side of jaw sometimes swells, she will rub it and then she will feel the saliva release. States this has been going on for a few years. Problem ReviewProblem List was reviewed and/or updated during this visit.Medication Reconciliation & ReviewMedication List was reviewed and/or updated during this visit, including review of any over-the- counter medications, herbal therapies, and/or supplements.Allergy ReviewAllergy List was reviewed and/or updated during this visit.Adult Preventive CareScreening Tobacco Screening: Smoking Status: current every day smoker (01/12/2020) Tobacco Use: Currently (01/12/2020) Advised to Quit: Yes (01/12/2020)Labs/Meds/Other Counseling-Nutrition and Physical Activity:BMI Interpretation: Obese (01/12/2020) Counseling: Done (01/12/2020) Physical Activity: Done (01/12/2020)Review of Systems General: Denies loss of appetite, chills, dizziness, fatigue, fever. Ears/Nose/Throat: Complains of see HPI, earache, ear discharge, dry mouth. Denies nasal congestion, sore throat. Cardiovascular: Denies chest pain, palpitations, feeling faint. Respiratory: Denies cough, difficulty breathing, shortness of breath. Gastrointestinal: Denies nausea, vomiting, diarrhea. Neurologic: Denies weakness, feeling faint. Physical ExamGeneral Appearance: well nourished, well hydrated, no acute distressEyes, External: conjunctivae and lids normal, EOMIExternal Ears: normal, no lesions or deformitiesHearing: grossly intactOtoscopy: LEFT: canals clear, tympanic membranes intact, no fluid, light reflex intact; RIGHT: canal clear, TM obscured with lomeli-brown crusting and yellow liquid drainage at 5 o'clock position surrounding a green TM tube that is unclear if patentNasal: mucosa, septum, and turbinates normal, nares patentLips/Teeth/Gums: no labial, tongue or mucosal lesions, no white patches, no swelling, no caries, no gingival hypertrophy, no bleeding gums, no parotid gland swelling on examPharynx: tongue normal, posterior pharynx without erythema or exudate, no thrush/aphthous ulcerNeck: supple, no masses, trachea midline, full range of motion of neckThyroid: no nodules, masses, tenderness, or enlargementRespiratory, Auscultation: clear to auscultation bilaterally; no rales, rhonchi, or wheezesCardiovascular, Auscultation: S1, S2 audible; no murmur, rub, or gallop; RRRAbdomen: soft, non-tender, no masses, bowel sounds normalGait & Station: normalOrientation: oriented to time, place, and personMood & Affect: anxious appearingJudgment & Insight: intactRate Your HealthIn general, would you say your health is? FairAssessment & Plan Problems:Added: Infective otitis externa of right ear (BVU35-G24.391) Assessment: Instructions: Antibiotic ear drops as prescribed. Follow-up if no improvement after 1 week of the drops.Disease of salivary gland, unspecified (KCS93-B87.9): right Assessment: Instructions: Will try to authorize imaging of parotid gland. Sour to illicit saliva prod uction and gentle massage.Changed:From: Dx of Nicotine dependence, cigarettes, in remission (ICD-305.1) (WPP16-U47.211) To: Nicotine dependence, cigarettes, uncomplicated (GXM94-Q62.210)Assessed:Xerostomia (ICD-527.7) (GDP26-F60.2) Assessment: Instructions: Will try to send for Jl dry mouth spray.Chronic obstructive pulmonary disease, unspecified (UTZ74-U83.9) Assessment: Instructions: Continue per pulmonology. Letter generated for your children's school. Refilled nebulizer as yours is broken.Gastro-esophageal reflux disease without esophagitis (VXW36-E67.9) Assessment: Instructions: Reschedule with GI.Nicotine dependence, cigarettes, uncomplicated (YKU68-H08.210) Assessment: Instructions: Smoking cessation counseling was recommended with patient today.Patient Instructions/Care Plan: Infective otitis externa of right ear: Antibiotic ear drops as prescribed. Follow-up if no improvement after 1 week of the drops.Disease of salivary gland- unspecified: Will try to authorize imaging of parotid gland. Sour to illicit saliva production and gentle massage.Xerostomia: Will try to send for Jl dry mouth spray.Chronic obstructive pulmonary disease- unspecified: Continue per pulmonology. Letter generated for your children's school. Refilled nebulizer as yours is broken.Gastro-esophageal reflux disease without esophagitis: Reschedule with GI.Nicotine dependence- cigarettes- uncomplicated: Smoking cessation counseling was recommended with patient today. Plan developed in collaboration with patient and/or familyMedications:CHANTIX STARTING MONTH CHEY 0.5 MG X 11 & 1 MG X 42 ORAL TABLETCIPRO HC 0.2-1 % OTIC SUSPENSIONADVAIR DISKUS 100-50 MCG/DOSE INHALATION AEROSOL POWDER BREATH ACTIVATEDSERTRALINE HCL 100 MG ORAL TABLETATIVAN 1 MG ORAL TABLETLAMICTAL 25 MG ORAL TABLETSPIRIVA RESPIMAT 2.5 MCG/ACT INHALATION AEROSOL SOLUTIONINCRUSE ELLIPTA 62.5 MCG/INH INHALATION AEROSOL POWDER BREATH ACTIVATEDTOPAMAX 25 MG ORAL TABLETOMEPRAZOLE 40 MG ORAL CAPSULE DELAYED RELEASENEBULIZERALBUTEROL SULFATE (2.5 MG/3ML) 0.083% INHALATION NEBULIZATION SOLUTIONMedication Changes:Refilled:NEBULIZER-uad Qty: 1[Device] Refills: 0 Method: ElectronicNew Prescription:CIPRO HC 0.2-1 % OTIC SUSPENSION-Instill 5 drops in right ear x 7 days Qty: 1[Bottle] Refills: 0 Method: ElectronicCHANTIX STARTING MONTH CHEY 0.5 MG X 11 & 1 MG X 42 ORAL TABLET-Take daily as directed Qty: 1[Package] Refills: 0 Method: ElectronicChanged: To: NEBULIZER-uad Qty: 1[Device] Refills: 0Allergies:MORPHINE (Critical)* CYMBALTA (Critical)HYDROCODONE (Critical)Orders:CT MAXILLOFACIAL W/O CONTRAST MATERIAL [CPT-31630] Adult - Ofc Vst, EST, Level III [CPT-48863] Follow-Up Return to clinic: as needed Clinical Visit Summary Completed Name Value Range Interpretation Code Description Data Birgit rce(s) Supporting Document(s) ID Date Data Source [id number] 09/20/2019 11:37:59 AM EDT [facility] Measurements & CalculationsHeight: 65 inches (5 ft. 5 in.) 165.10 cm Weight: 184 pounds 83.64 kg Body Mass Index (BMI): 30.73BMI Interpretation: ObeseBody Surface Area (BSA): 1.91Vital SignsTemperature: 98.7F tympanic Pulse Rate: 68 beats/minuteRespiratory Rate: 18 respirations/minuteBlood Pressure: 129/80 left arm sitting automaticO2 Saturation: 97% room airVital Signs performed by: Yamileth Hutchinson LPN, September 20, 2019 11:57 AMInitial Intake Infectious Disease / Travel ScreeningRecent travel for you or any close contacts? NoHave you had any close contact with anyone diagnosed with or under investigation for COVID-19 (coronavirus)? NoFever? NoRespiratory symptoms: cough, cold, congestion, shortness of breath, difficulty breathing? YesLoss of smell? NoLoss of taste? NoDetails: SOB worse wearing maskSmoking, Tobacco, Vaping or Smoke Exposure StatusSmoke Status: current every day smokerTobacco Use: YesAdv to Quit: YesDo you vape? NoPassive Smoke Exposure: YesMenstrual HistoryComments: partial hysterectomyHealthcare HistorySince your last office visit...Have you been admitted to the hospital? NoHave you been to an emergency room (ER) or urgent care clinic? NoHave you seen another healthcare provider? NoHave you seen a dentist? NoIntake performed by: Yamileth Hutchinson LPN, September 20, 2019 11:46 AMRate Your HealthIn general, would you say your health is? FairPain AssessmentAre you currently having any pain which... You would like your provider to address? No Affects your activity level? NoDepression Screening - PHQ-2Over the last two weeks, have you... Had little interest or pleasure in doing things? Not at all Been feeling down, depressed, or hopeless? Several days PHQ-2 Score: 1Anxiety Screening - ONIEL-2Over the last two weeks, have you been... Feeling nervous, anxious, or on edge? Several days Unable to stop or control worrying? Several days ONIEL-2 Score: 2Generalized Anxiety Disorder 7-Item Screening (ONIEL-7)Answer Guide:0 = Not at all1 = Several days2 = Over half the days3 = Nearly every dayOver the last 2 weeks, how often have you been bothered by the following problems?Feeling nervous, anxious, or on edge: 1Not being able to stop or control worryinWorrying too much about different things: 1Trouble relaxinBeing so restless that it's hard to sit s till: 1Becoming easily annoyed or irritable: 3Feeling afraid as if something awful might happen: 0Answer Guide:0 = Not difficult at all1 = Somewhat difficult2 = Very difficult3 = Extremely difficultHow difficult have these made it for you to do your work, take care of things at home, or get along with other people? 1GAD-7 Screening Results ONIEL-2 Score: 2GAD-7 Score: 9Functional Impairment: Somewhat difficultRecommendation: Mild anxietyPHQ-9 1. Over the last 2 weeks, patient reports the following frequency of symptoms: a. Little interest or pleasure in doing things -Not at all b. Feeling down, depressed, or hopeless - Several days c. Trouble falling asleep, staying asleep, or sleeping too much -Several days d. Feeling tired or having little energy -More than half the days e. Poor appetite or overeating -More than half the days f. Feeling bad about yourself, feeling that you are a failure, or feeling that you have let yourself or your family down -Several days g. Trouble concentrating on things such as reading the newspaper or watching television -Not at all h. Moving or speaking so slowly that other people could have noticed. Or being so fidgety or restless that you have been moving around a lot more than usual - Several days i. Thinking that you would be better off or that you want to hurt yourself in some way -Not at all2. If you checked off any problems, how difficult have these problems made it for you to do your work, take care of things at home, or get along with other people? -Somewhat DifficultToday's PHQ-9 Results Score: 8 Severity: Mild Diagnosis Recommendation: No recommendation Functional Impairment: Somewhat DifficultToday's Follow-Up Action Depression follow-up done. Follow-Up Action: Showing Improvement, No Changes NecessaryScreening, Brief Intervention, & Referral to Treatment (SBIRT)Pre- Screening Questions How many times have you have 4 or more drinks in a day? 0How many times have you used an illegal drug or used a prescription medication for a non-medical reason? 0Performed by: Yamileth Hutchinson LPN, September 20, 2019 11:50 AMPatient History Medical History:Anxiety/Depressionfibromylgiadegenerative disc diseasecarpal tunnelvertigodecompression in shoulderpecysts on liverPTSDSurgical History:Hysterectomy (Partial)carpal tunneldecompression in shoulderback surgeryFamily History:Depression (Mother)Dementia (Mother)Cancer - Skin (Paternal Grandfather)Cancer - Unknown (Maternal Grandmother)Diabetes (Maternal Grandfather)Social/Personal History: Advised to Quit/Tobacco Education: YesChief Complaintupdated out of work letterHistory of Present Illness (HPI)44 yo female here for update for out of work letter.Pt states she helped the local [employer] the other day and since then she has had SOB and a slight cough. Worse with mask on. Pt has started smoking 3 cigarettes daily again, household members chain smoke in their bedroom. Pt also reports more difficulty breathing wearing cloth masks during COVID19 pandemic. Last pulmonology appt was yesterday, next is March 2020. Pt works in a [employer] ([place]) and is concerned about returning to work because she feels she can't breath wearing the masks. Her work won't allow faceshields, only fabric masks. She is very conflicted because she very much wants to return to work., but feels entirely unable due to the facemask requirement.HPI performed by: Glen ERNST, September 20, 2019 12:03 PMProblem ReviewProblem List was reviewed and/or updated during this visit.Medication Reconciliation & ReviewMedication List was reviewed and/or updated during this visit, including review of any hiat-vuz-mcondvp medications, herbal therapies, and/or supplements.Allergy ReviewAllergy List was reviewed and/or updated during this visit.Adult Preventive CareProvider Calculated and Reviewed all Clinical Protocols for patient today. Screening Tobacco Screening: Smoking Status: current every day smoker (09/20/2019) Tobacco Use: Currently (09/20/2019) Advised to Quit: Yes (09/20/2019)Cancer Screening Mammogram Reviewed: Previous Comments: need referral (08/21/2019)Today's Comments: needs referralPap Smear/HPV TestingReviewed: Previous Comments: will schedule in house (07/13/2019)Today's Comments: 10/09/2019 in houseReview of Systems General: Denies loss of appetite, chills, dizziness, fatigue, fever, headache, feeling ill. Respiratory: Complains of see HPI, cough, difficulty breathing, shortness of breath, wheezing. Denies excessive sputum. Gastrointestinal: Denies nausea, vomiting, diarrhea. Neurologic: Denies weakness, feeling faint. Psychiatric: Complains of depression, anxiety. related to work stressorsPhysical ExamGeneral Appearance: well nourished, well hydrated, no acute distressEyes, External: conjunctivae and lids normal, EOMIRespiratory, Auscultation: clear to auscultation bilaterally; no rales, rhonchi, or wheezesRespiratory, Effort: no intercostal retractions or use of accessory musclesCardiovascular, Auscultation: S1, S2 audible; no murmur, rub, or gallop; RRRPeripheral Circulation: no clubbing, cyanosis, edema, or varicositiesAbdomen: soft, non-tender, no masses, bowel sounds normalGait & Station: normalSkin, Inspection: no rashes, lesions, or ulcerationsOrientation: oriented to time, place, and personMood & Affect: anxious appearingJudgment & Insight: intactRate Your HealthIn general, would you say your health is? FairAssessment & Plan Problems:Assessed:Chronic obstructive pulmonary disease, unspecified (QCK50-T71.9) Assessment: Instructions: Out of work at this time. I do agree that the facemasks are not improving her breathing for COPD and anxiety, however, we discussed that her job may not be able to make reasonable accomodations. She may need to consider alternative employment. I am willing to continue out of work for as long as we are able. C maurainue with your oil expert.Anxiety depression (ICD-300.09) (SBZ25-N88.8) Assessment: Instructions: Continue current medications per Dr. Maurer.Assessment not SavedNicotine dependence; cigarettes; in remission (FEY58-M43.211): Patient Instructions/Care Plan: Chronic obstructive pulmonary disease- unspecified: Out of work at this time. I do agree that the facemasks are not improving her breathing for COPD and anxiety, however, we discussed that her job may not be able to make reasonable accomodations. She may need to consider alternative employment. I am willing to continue out of work for as long as we are able. Continue with your oil expert.Anxiety depression: Continue current medications per Dr. Maurer. Plan developed in collaboration with patient and/or familyMedications:ADVAIR DISKUS 100-50 MCG/DOSE INHALATION AEROSOL POWDER BREATH ACTIVATEDSERTRALINE HCL 100 MG ORAL TABLETATIVAN 1 MG ORAL TABLETLAMICTAL 25 MG ORAL TABLETSPIRIVA RESPIMAT 2.5 MCG/ACT INHALATION AEROSOL SOLUTIONINCRUSE ELLIPTA 62.5 MCG/INH INHALATION AEROSOL POWDER BREATH ACTIVATEDTOPAMAX 25 MG ORAL TABLETOMEPRAZOLE 40 MG ORAL CAPSULE DELAYED RELEASENEBULIZERALBUTEROL SULFATE (2.5 MG/3ML) 0.083% INHALATION NEBULIZATION SOLUTIONMedication Changes:Added: ADVAIR DISKUS 100-50 MCG/DOSE INHALATION AEROSOL POWDER BREATH ACTIVATED-1 puff per dayAllergies:MORPHINE (Critical)* CYMBALTA (Critical)HYDROCODONE (Critical)Orders:Adult - Ofc Vst, EST, Level III [CPT-91002] Follow-Up Return to clinic: as needed, as scheduled Clinical Visit Summary Declined Name Value Range Interpretation Code Description Data Birgit rce(s) Supporting Document(s) ID Date Data Source [id number] 08/21/2019 02:55:04 PM EDT [facility] Measurements & CalculationsHeight: 65 inches (5 ft. 5 in.) 165.10 cm Weight: 178 pounds 4 oz. 81.02 kg Body Mass Index (BMI): 29.77BMI Interpretation: OverweightBody Surface Area (BSA): 1.89Weight Management Education Done (Nutrition/Physical Activity)Vital SignsTemperature: 98.5F tympanic Pulse Rate: 88 beats/minuteRespiratory Rate: 18 respirations/minuteBlood Pressure: 125/81 right arm sitting automaticO2 Saturation: 100% room airVital Signs performed by: Yamileth Hutchinson LPN, August 21, 2019 3:05 PMVital Signs performed by: Glen ERNST, August 21, 2019 3:29 PMInitial Intake Information from: patientRoom #: 2Smoking, Tobacco, Vaping or Smoke Exposure StatusSmoke Status: former smokerTobacco Use: NoDo you vape? NoPassive Smoke Exposure: YesHealthcare HistorySince your last office visit...Have you been admitted to the hospital? NoHave you been to an emergency room (ER) or [facility] ent care clinic? Yes - [facility] ER for chest painEmergency room (ER) or urgent care date reported today: 08/14/2019Have you seen another healthcare provider? YesHave you seen a dentist? NoRate Your HealthIn general, would you say your health is? FairPain AssessmentAre you currently having any pain which... You would like your provider to address? Yes Affects your activity level? YesDepression Screening - PHQ-2Over the last two weeks, have you... Had little interest or pleasure in doing things? Not at all Been feeling down, depressed, or hopeless? Not at all PHQ-2 Score: 0Anxiety Screening - ONIEL-2Over the last two weeks, have you been... Feeling nervous, anxious, or on edge? Not at all Unable to stop or control worrying? Not at all ONIEL-2 Score: 0Infectious Disease / Travel ScreeningRecent travel for you or any close contacts? NoHave you had any close contact with anyone diagnosed with or under investigation for COVID-19 (coronavirus)? NoHave you had any of the following symptoms recently? Fever? NoRespiratory symptoms: cough, cold, congestion, shortness of breath, difficulty breathing? NoPain AssessmentPain ScaleNumeric Rating Scale: 3 / 10Location: chest Duration: monthCharacter/Quality: pressureIs the pain radiating? NoScreening, Brief Intervention, & Referral to Treatment (SBIRT)Pre-Screening Questions How many times have you have 4 or more drinks in a day? 0How many times have you used an illegal drug or used a prescription medication for a non-medical reason? 0Performed by: Yamileth Hutchinson LPN, August 21, 2019 2:59 PMPatient History Medical History:Anxiety/Depressionfibro mylgiadegenerative disc diseasecarpal tunnelvertigodecompression in shoulderpecysts on liverPTSDSurgical History:Hysterectomy (Partial)carpal tunneldecompression in shoulderback surgeryFamily History:Depression (Mother)Dementia (Mother)Cancer - Skin (Paternal Grandfather)Cancer - Unknown (Maternal Grandmother)Diabetes (Maternal Grandfather)Social/Personal History: Chief Complaintchest pain and med checkHistory of Present Illness (HPI)44 yo female here for med check and chest pain over the past couple of weeks.Pt states she has a few tender spots on her left side of chest and in her armpit. Of note she did recently have a significant influenza illness and is only recently improving with her coughing. Pt states she stopped all her meds due to not knowing if that is causing the pain. She was recently increased on her Lamictal by psychiatry and her sertraline by this office. Transitions of Care InboundProblem ReviewProblem List was reviewed and/or updated during this visit.Medication Reconciliation & ReviewMedication List was reviewed and/or updated during this visit, including review of any [id number] medications, herbal therapies, and/or supplements.Allergy ReviewAllergy List was reviewed and/or updated during this visit.Adult Preventive CareProvider Calculated and Reviewed all Clinical Protocols for patient today. Labs/Meds/Other Counseling- Nutrition and Physical Activity:BMI Interpretation: Overweight (08/21/2019) Counseling: Done (08/21/2019) Physical Activity: Done (08/21/2019)Cancer Screening Mammogram Reviewed: Today's Comments: need referralReview of Systems General: Denies loss of appetite, chills, dizziness, fatigue, fever, headache, feeling ill. Cardiovascular: Complains of chest pain. Denies palpitations, feeling faint, SOB upon lying down, peripheral edema, elevated blood pressure, decreased heart rate. Respiratory: Complains of see HPI, cough, shortness of breath, wheezing. Denies difficulty breathing, excessive sputum, coughing up blood. Gastrointestinal: Denies nausea, vomiting, diarrhea, constipation, pain or discomfort, heartburn. Musculoskeletal: Complains of see HPI, muscle aches. Denies recent injury. Skin: Denies rash, redness. Neurologic: Denies weakness, numbness/tingling, feeling faint. Psychiatric: Complains of anxiety. stopped her medication recentlyPhysical ExamGeneral Appearance: well nourished, well hydrated, no acute distressEyes, External: conjunctivae and lids normal, EOMINeck: supple, no masses, trachea midline, full range of motion of neck, no carotid bruit b/lChest Wall: no masses, mild sternal pain with palpation, no crepitationsRespiratory, Auscultation: clear to auscultation bilaterally; no rales, rhonchi, or wheezesRespiratory, Effort: no intercostal retractions or use of accessory musclesCardiovascular, Auscultation: S1, S2 audible; no murmur, rub, or gallop; RRRPeripheral Circulation: no clubbing, cyanosis, edema, or varicositiesAbdomen: soft, non-tender, no masses, bowel sounds normalGait & Station: normalSkin, Inspection: no rashes, lesions, or ulcerationsOrientation: oriented to time, place, and personMood & Affect: anxious appearingJudgment & Insight: intactCare Management Plan Transitions of CareInboundRate Your HealthIn general, would you say your health is? FairAssessment & Plan Problems:Added: Chest pain, unspecified (SEY83-Z35.9) Assessment: Instructions: Call assistant news director to schedule. Referred by [facility] ER, should not need additional referral.Intermittent palpitations (ICD-785.1) (UVJ45-A55.2) Assessment: Instructions: As above.Changed:From: Dx of Nicotine dependence, cigarettes, uncomplicated (DKQ85-R21.210) To: Nicotine dependence, cigarettes, in remission (ICD-305.1) (FMM79-J29.211)Assessed:Chronic obstructive pulmonary disease, unspecified (AFX83-L34.9) Assessment: Instructions: Continue per pulmonology. Consider stopping Chantix due to possiibility of chest pain as a side effect of the Chantix.Nicotine dependence, cigarettes, in remission (ICD-305.1) (TSR05-T38.211) Assessment: Instructions: Continue smoking cessation. Congratulations on your great efforts.Anxiety depression (ICD- 300.09) (GXY99-T38.8) Assessment: Instructions: Restart your Zoloft as previously prescribed. Lamictal please discuss with Dr. Maurer, continue at 25mg once daily.Removed:Influenza A virus present (ZWI49-K96.x2), Acute upper respiratory infection, unspecified (NFA65-X34.9), Cough (ICD-786.2) (ICD10- R05)Patient Instructions/Care Plan: Chest pain- unspecified: Call assistant news director to schedule. Referred by [facility] ER, should not need additional referral.Intermitt ent palpitations: As above.Chronic obstructive pulmonary disease- unspecified: Continue per pulmonology. Consider stopping Chantix due to possiibility of chest pain as a side effect of the Chantix.Nicotine dependence- cigarettes- in remission: Continue smoking cessation. Congratulations on your great efforts.Anxiety depression: Restart your Zoloft as previously prescribed. Lamictal please discuss with Dr. Maurer, continue at 25mg once daily. Plan developed in collaboration with patient and/or familyMedications:SERTRALINE HCL 100 MG ORAL TABLETATIVAN 1 MG ORAL TABLETLAMICTAL 25 MG ORAL TABLETSPIRIVA RESPIMAT 2.5 MCG/ACT INHALATION AEROSOL SOLUTIONINCRUSE ELLIPTA 62.5 MCG/INH INHALATION AEROSOL POWDER BREATH ACTIVATEDTOPAMAX 25 MG ORAL TABLETOMEPRAZOLE 40 MG ORAL CAPSULE DELAYED RELEASEN EBULIZERALBUTEROL SULFATE (2.5 MG/3ML) 0.083% INHALATION NEBULIZATION SOLUTIONMedication Changes:Removed:TAMIFLU 75 MG ORAL CAPSULE-1 tab po bid for 5 days, IPRATROPIUM-ALBUTEROL 0.5-2.5 (3) MG/3ML INHALATION SOLUTION-3mL via nebulized inhalation every 6 hrs as needed Qty: 1[Box] Refills: 5, GUAIATUSSIN AC 100-10 MG/5ML ORAL SYRUP-Take 5mL po every 4-6 hrs as needed; MDD 30mL Qty: 300[Milliliter] Refills: 0, NEBULIZER-uad, BENZONATATE 200 MG ORAL CAPSULE-1 tab po tid prn for coughAllergies:MORPHINE (Critical)* CYMBALTA (Critical)HYDROCODONE (Critical)Orders:Adult - Ofc Vst, EST, Level III [CPT-992 13] Follow-Up Return to clinic: in 6 weeks for follow upAdditional Follow-Up: cardiologyClinical Visit Summary Completed Name Value Range Interpretation Code Description Data Birgit rce(s) Supporting Document(s) ID Date Data Source [id number] 07/19/2019 01:27:50 PM EDT [facility] Measurements & CalculationsHeight: 65 inches (5 ft. 5 in.) 165.10 cm Weight: 173 pounds 8 oz. 78.86 kg Body Mass Index (BMI): 28.98BMI Interpretation: OverweightBody Surface Area (BSA): 1.86Weight Management Education Done (Nutrition/Physical Activity)Vital SignsTemperature: 97.6F oral Pulse Rate: 85 beats/minuteRespiratory Rate: 18 respirations/minuteBlood Pressure: 120/86 right arm sitting automaticO2 Saturation: 99% room airVital Signs performed by: Yamileth Hutchinson LPN, July 19, 2019 1:41 PMInitial Intake Information from: patientRoom #: 2Smoking, Tobacco, Vaping or Smoke Exposure StatusSmoke Status: current every day smokerTobacco Use: YesAdv to Quit: YesDo you vape? NoPassive Smoke Exposure: YesHealthcare HistorySince your last office visit...Have you been admitted to the hospital? NoHave you been to an emergency room (ER) or urgent care clinic? Yes - [facility] ER flu AEmergency room (ER) or urgent care date reported today: 07/16/2019Have you seen another healthcare provider? Yes - gastroHave you seen a dentist? NoRate Your HealthIn general, would you say your health is? FairPain AssessmentAre you currently having any pain which... You would like your provider to address? Yes Affects your activity level? YesDepression Screening - PHQ-2Over the last two weeks, have you... Had little interest or pleasure in doing things? Not at all Been feeling down, depressed, or hopeless? Not at all PHQ-2 Score: 0Anxiety Screening - ONIEL-2Over the last two weeks, have you been... Feeling nervous, anxious, or on edge? Not at all Unable to stop or control worrying? Not at all ONIEL-2 Score: 0Infectious Disease / Travel ScreeningRecent travel for you, your family, and/or any sexual partners? NoPain AssessmentPain ScaleNumeric Rating Scale: 7 / 10Location: chest Duration: weekCharacter/Quality: pressureIs the pain radiating? NoScreening, Brief Intervention, & Referral to Treatment (SBIRT)Pre-Screening Questions How many times have you have 4 or more drinks in a day? 0How many times have you used an illegal drug or used a prescription medication for a non-medical reason? 0Performed by: Yamileth Hutchinson LPN, July 19, 2019 1:38 PMPatient History Medical History:AnxietyDepressionfibromylgiadegenerative disc diseasecarpel tunnelvertigodecompression in shoulderpecysts on liverPTSDSurgical History:Hysterectomy (Partial)carpel tunneldecompression in shoulderback surgeryFamily History:Depression (Mother)Dementia (Mother)Cancer - Skin (Paternal Grandfather)Cancer - Unknown (Maternal Grandmother)Diabetes (Maternal Grandfather)Social/Personal History: Advised to Quit/Tobacco Education: YesChief Complaintfollow up for ER flu AHistory of Present Illness (HPI)44 yo female here for f/u for flu A. Symptoms began with scratchy throat, dry cough, and fatigue on 07/15/19; was seen at [facility] ER on 07/16/19, diagnosed with influenza A. Pt states she is very SOB and is concerned about that. Pt has been using her nebulizer, reports she has combination albuterol-ipratropium at home. She gets into coughing fits that leave her severely short of breath and unable to catch her breath during the fits. Admits to slight runny nose. Admits to some minimal clear nasal discharge. Admits to chills but no documented fever. 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 HPI performed by: Glen ERNST, July 19, 2019 1:58 PMTransitions of Care InboundProblem ReviewProblem List was reviewed and/or updated during this visit.Medication Reconciliation & ReviewMedication List was reviewed and/or updated during this visit, including review of any uoaq-jnu-[id number] medications, herbal therapies, and/or supplements.Allergy ReviewAllergy List was reviewed and/or updated during this visit.Adult Prev entive CareProvider Calculated and Reviewed all Clinical Protocols for patient today. Screening Tobacco Screening: Smoking Status: current every day smoker (07/19/2019) Tobacco Use: Currently (07/19/2019) Advised to Quit: Yes (07/19/2019)Labs/Meds/Other Counseling-Nutrition and Physical Activity:BMI Interpretation: Overweight (07/19/2019) Counseling: Done (07/19/2019) Physical Activity: Done (07/19/2019)Review of Systems General: Complains of chills, fatigue, feeling ill. Denies dizziness, fever, sweats. Ears/Nose/Throat: Complains of runny nose. Denies earache, sore throat, difficulty swallowing, swollen glands. Cardiovascular: Denies chest pain, palpitations, feeling faint. Respiratory: Complains of cough, difficulty breathing, shortness of breath, wheezing. Denies excessive sputum, coughing up blood. Gastrointestinal: Denies nausea, vomiting, diarrhea, constipation, pain or discomfort. Neurologic: Denies weakness, feeling faint. Physical ExamGeneral Appearance: well nourished , well hydrated, no acute distressEyes, External: conjunctivae and lids normal, EOMIRespiratory, Auscultation: clear to auscultation bilaterally; no rales, rhonchi, or wheezes, severely dry cough with inspiration, occasional episodes of repetitive coughing with minimal inspiration during the fits of coughRespiratory, Effort: no intercostal retractions or use of accessory musclesCardiovascular, Auscultation: S1, S2 audible; no murmur, rub, or gallop; RRRPeripheral Circulation: no clubbing, cyanosis, edema, or varicositiesAbdomen: soft, non-tender, no masses, bowel sounds normalGait & Station: carmelo lOrientation: oriented to time, place, and personMood & Affect: anxious appearing when coughingJudgment & Insight: intactCare Management Plan Transitions of CareInboundRate Your HealthIn general, would you say your health is? FairAssessment & Plan Problems:Added: Influenza A virus present (ICD10- J09.x2) Assessment: Instructions: Continue Tamiflu and complete as ordered. Stop methylprednisolone and replace with Prednisone dose pack. Use nebulizer every 4-6 hrs for wheezing and shortness of breath. Will send for GuaifenesinAC cough syrup; caution as this contains codeine, you can't take it with your ativan. ER for worsening symptoms. Out of work the rest of this week.Assessed:Chronic obstructive pulmonary disease, unspecified (XYR49-F10.9) Assessment: Instructions: As above.Patient Instructions/Care Plan: Influenza A virus present: Continue Tamiflu and complete as ordered. Stop methylprednisolone and replace with Prednisone dose pack. Use nebulizer every 4-6 hrs for wheezing and shortness of breath. Will send for GuaifenesinAC cough syrup; caution as this contains codeine, you can't take it with your ativan. ER for worsening symptoms. Out of work the rest of this week.Chronic obstructive pulmonary disease- unspecified: As above. Plan developed in collaboration with patient and/or familyMedications:GUAIATUSSIN AC 100-10 MG/5ML ORAL SYRUPPREDNISONE 10 MG (21) ORAL TABLET THERAPY PACKTAMIFLU 75 MG ORAL CAPSULEBENZONATATE 200 MG ORAL CAPSULEZOLOFT 50 MG ORAL TABLETATIVAN 1 MG ORAL TABLETLAMICTAL 25 MG ORAL TABLETSPIRIVA RESPIMAT 2.5 MCG/ACT INHALATION AEROSOL SOLUTIONINCRUSE ELLIPTA 62.5 MCG/INH INHALATION AEROSOL POWDER BREATH ACTIVATEDTOPAMAX 25 MG ORAL TABLETOMEPRAZOLE 40 MG ORAL CAPSULE DELAYED RELEASENEBULIZERNEBULIZERALBUTEROL SULFATE (2.5 MG/3ML) 0.083% INHALATION NEBULIZATION SOLUTIONMedication Changes:Added: ZOLOFT 50 MG ORAL TABLET-1 tab po dailyBENZONATATE 200 MG ORAL CAPSULE-1 tab po tid prn for coughTAMIFLU 75 MG ORAL CAPSULE-1 tab po bid for 5 daysNew Prescription:PREDNISONE 10 MG (21) ORAL TABLET THERAPY PACK-Take as directed Qty: 1[Package] Refills: 0 Method: ElectronicGUAIATUSSIN AC 100-10 MG/5ML ORAL SYRUP-Take 5mL po every 4-6 hrs as needed; MDD 30mL Qty: 300[Milliliter] Refills: 0 Method: ElectronicAllergies:MORPHINE (Critical)* CYMBALTA (Critical)HYDROCODONE (Critical)Orders:Adult - Ofc Vst, EST, Level III [CPT-20080] Follow-Up Return to clinic: as needed Clinical Visit Summary CompletedMedications:GUAIATUSSIN AC 100-10 MG/5ML ORAL SYRUP (GUAIFENESIN-CODEINE) Take 5mL po every 4-6 hrs as needed; MDD 30mL #300[Milliliter] x 0 Route:ORAL Entered and Authorized by: Glen ERNST Method used: Electronically to [facility] (retail) [address] [place] [address] Note to Pharmacy: Route: ORAL; Indications: INFLUENZA A VIRUS PRESENT;CHRONIC OBSTRUCTIVE PULMONARY DISEASE, UNSPECIFIED;COUGH;EXPIRATORY WHEEZING RxID: [id number] 10 MG (21) ORAL TABLET THERAPY PACK (PREDNISONE) Take as directed #1[Package] x 0 Route:ORAL Entered and Authorized by: Glen ERNST Method used: Electronically to [facility] (retail) [address] [place] [address] Fax: Note to Pharmacy: Route: ORAL; Indications: INFLUENZA A VIRUS HI ESENT;COUGH;CHRONIC OBSTRUCTIVE PULMONARY DISEASE, UNSPECIFIED;EXPIRATORY WHEEZING RxID: [id number]] Name Value Range Interpretation Code Description Data Birgit rce(s) Supporting Document(s) ID Date Data Source [id number] 07/13/2019 12:46:19 PM EDT [facility] Measurements & CalculationsHeight: 65 inches (5 ft. 5 in.) 165.10 cm Weight: 168.25 pounds 76.48 kg Body Mass Index (BMI): 28.10BMI Interpretation: OverweightBody Surface Area (BSA): 1.84Weight Management Education Done (Nutrition/Physical Activity)Vital SignsTemperature: 97.5F oral Pulse Rate: 82 beats/minuteRespiratory Rate: 18 respirations/minuteBlood Pressure: 116/78 left arm sitting automaticO2 Saturation: 99% room airVital Signs performed by: Yamileth Hutchinson LPN, July 13, 2019 1:00 PMInitial Intake Information from: patientRoom #: 1Smoking, Tobacco, Vaping or Smoke Exposure StatusSmoke Status: current every day smokerTobacco Use: YesAdv to Quit: YesDo you vape? NoPassive Smoke Exposure: YesHealthcare HistorySince your last office visit...Have you been admitted to the hospital? NoHave you been to an emergency room (ER) or urgent care clinic? NoHave you seen another [facility] provider? Yes - gastroHave you seen a dentist? NoRate Your HealthIn general, would you say your health is? FairPain AssessmentAre you currently having any pain which... You would like your provider to address? Yes Affects your activity level? NoDepression Screening - PHQ-2Over the last two weeks, have you... Had little interest or pleasure in doing things? Not at all Been feeling down, depressed, or hopeless? Not at all PHQ-2 Score: 0Anxiety Screening - ONIEL-2Over the last two weeks, have you been... Feeling nervous, anxious, or on edge? Not at all Unable to stop or control worrying? Not at all ONIEL-2 Score: 0Infectious Disease / Travel ScreeningRecent travel for you, your family, and/or any sexual partners? NoPain AssessmentPain ScaleNumeric Rating Scale: 7 / 10Location: leg Duration: leftCharacter/Quality: achingIs the pain radiating? NoScreening, Brief Intervention, & Referral to Treatment (SBIRT)Pre-Screening Questions How many times have you have 4 or more drinks in a day? 0How many times have you used an illegal drug or used a prescription medication for a non-medical reason? 0Performed by: Yamileth Hutchinson LPN, July 13, 2019 12:54 PMPatient History Medical Hi story:AnxietyDepressionfibromylgiadegenerative disc diseasecarpel tunnelvertigodecompression in shoulderpecysts on liverPTSDSurgical History:Hysterectomy (Partial)carpel tunneldecompression in shoulderback surgeryFamily History:Depression (Mother)Dementia (Mother)Cancer - Skin (Paternal Grandfather)Cancer - Unknown (Maternal Grandmother)Diabetes (Maternal Grandfather)Social/Personal History: Advised to Quit/Tobacco Education: YesChief Complaintfollow-up visit anx/dep and dizzinessHistory of Present Illness (HPI)44 yo female here for f/u for anxiety and depression. Pt states that over the last 4 days she is noticing that when she sits or lays down she is getting dizzy and the room is spinning. Pt states that the other day she went to get up and sat up slowly but got dizzy, she moved to the edge of the bed and waited for a few and thought she was okay to get up but when she stood she felt like she was about to pass out. Pt feels it happens more often when she goes from standing to sitting. Also admits to more frequent migraine headaches. States she has taken up to 3 tablets of the Topamax at one dose, but has been taking 1 tablet daily since last visit. Notes no imrovement whatsoever. She was seen by GI this week, was advised to have "a surgery" but that they reportedly want her to see neurology for evaluation of dizziness before any surgery. Unfortunately no notes are available for review regarding the GI recommendation. HPI performed by: Glen ERNST, July 13, 2019 1:07 PMTransitions of Care InboundProblem ReviewProblem List was reviewed and/or updated during this visit.Medication Reconciliation & ReviewMedication List was reviewed and/or updated during this visit, including review of any rltc-gjd-yxrqstk medications, herbal therapies, and/or supplements.Allergy ReviewAllergy List was reviewed and/or updated during this visit.Adult Preventive CareProvider Calculated and Reviewed all Clinical Protocols for patient today. Screening Tobacco Screening: Smoking Status: current every day smoker (07/13/2019) Tobacco Use: Currently (07/13/2019) Advised to Quit: Yes (07/13/2019)Labs/Meds/Other Counseling-Nutrition and Physical Activity:BMI Interpretation: Overweight (07/13/2019) Counseling: Done (07/13/2019) Physical Activity: Done (07/13/2019)Cancer Screening Pap Smear/HPV TestingReviewed: Previous Comments: PT has not had one done. (08/02/2018)Today's Comments: will schedule in houseReview of Systems General: Complains of dizziness, headache. Denies fever. Eyes: Denies blurring of vision, double vision, eye pain, sensitivity to light. Ears/Nose/Throat: Denies earache, ringing in ears, decreased hearing, nasal congestion, sore throat. Cardiovascular: Complains of feeling faint. Denies chest pain, palpitations, peripheral edema, elevated blood pressure. Respiratory: Denies cough, difficulty breathing, shortness of breath. Gastrointestinal: Denies vomiting, diarrhea. Neurologic: Complains of feeling faint, vertigo. Denies weakness, numbness/tingling, slurred speech. Heme/Lymphatic: Denies abnormal bruising, bleeding. Physical ExamGeneral Appearance: well nourished, well hydrated, no acute distressEyes, External: conjunctivae and lids normal, EOMIExternal Ears: normal, no lesions or deformitiesHearing: grossly intactOtoscopy: canals clear, tympanic membranes intact, no fluid, light reflex intact bilaterallyNeck: supple, no masses, trachea midline, full range of motion of neck, no carotid bruit b/lRespiratory, Auscultation: clear to auscultation bilaterally; no rales, rhonchi, or wheezesCardiovascular, Auscultation: S1, S2 audible; no murmur, rub, or gallop; RRRAbdomen: soft, non-tender, no masses, bowel sounds normalGait & Station: normalOrientation: oriented to time, place, and personJudgment & Insight: intactCare Management Plan Transitions of CareInboundRate Your HealthIn general, would you say your health is? FairAssessment & Plan Problems:Added: Migraine with aura, not intractable, without status migrainosus (LFD17-B03.109) Assessment: Instructions: Referral to Dr. Bernard, who saw you 1 year ago in the hospital. Slowly escalate dose of Topamax to 25mg twice daily, with plan to increase monthly as symptoms continue.Dizziness (ICD-780.4) (AGC73-N85) Assessment: Instructions: As above. Also differential of vertigo or cardiac. Will continue per neuro and ER for sudden change or severe symptoms.Assessed:A nxiety depression (ICD-300.09) (UFL63-L54.8) Assessment: Instructions: Continue otis Maurer.Assessment not Saved Anxiety depression (ICD10- F41.8): Comment OnlyInstructions: Continue otis Maurer.Patient Instructions/Care Plan: Migraine with aura- not intractable- without status migrainosus: Referral to Dr. Bernard, who saw you 1 year ago in the hospital. Slowly escalate dose of Topamax to 25mg twice daily, with plan to increase monthly as symptoms continue.Dizziness: As above. Also differential of vertigo or cardiac. Will continue per neuro and ER for sudden change or severe symptoms .Anxiety depression: Continue otis Maurer. Plan developed in collaboration with patient and/or familyMedications:ATIVAN 1 MG ORAL TABLETLAMICTAL 25 MG ORAL TABLETSPIRIVA RESPIMAT 2.5 MCG/ACT INHALATION AEROSOL SOLUTIONINCRUSE ELLIPTA 62.5 MCG/INH INHALATION AEROSOL POWDER BREATH ACTIVATEDTOPAMAX 25 MG ORAL TABLETOMEPRAZOLE 40 MG ORAL CAPSULE DELAYED RELEASENEBULIZERNEBULIZERALBUTEROL SULFATE (2.5 MG/3ML) 0.083% INHALATION NEBULIZATION SOLUTIONAllergies:MORPHINE (Critical)* CYMBALTA (Critical)HYDROCODONE (Critical)Orders:Neurology Consult [CPT-50737] Adult - Ofc Vst, EST, Level III [CPT-11308] Follow-Up Return to clinic: in 30 days for follow upAdditional Follow-Up: migraine follow-upClinical Visit Summary Declined] Name Value Range Interpretation Code Description Data Birgit rce(s) Supporting Document(s) ID Date Data Source [id number] 06/07/2019 10:31:13 AM [facility] Measurements & CalculationsHeight: 65 inches (5 ft. 5 in.) 165.10 cm Weight: 169 pounds 76.82 kg Body Mass Index (BMI): 28.22BMI Interpretation: OverweightBody Surface Area (BSA): 1.84Weight Management Education Done (Nutrition/Physical Activity)Vital SignsTemperature: 98.9FPulse Rate: 80 beats/minuteRespiratory Rate: 14 respirations/minuteBlood Pressure: 136/90 O2 Saturation: 100% Vital Signs performed by: Kendra Phoenix, June 07, 2019 10:32 AMVital Signs performed by: Kendra Phoenix, June 07, 2019 10:32 AMInitial Intake Information from: patientRoom #: 9Infectious Disease- Travel Have you or your sexual partner travelled outside of the country recently? NoSmoking, Tobacco or Smoke Exposure StatusSmoke Status: current every day smokerTobacco Use: YesAdv to Quit: YesPassive Smoke Exposure: YesMenstrual HistoryAny possibility of ? NoComments: partial hysterectomyHealthcare HistorySince your last office visit...Have you been admitted to the hospital? NoHave you been to an emergency room (ER) or urgent care clinic? NoHave you seen another healthcare provider? Yes - pulmonaryHave you seen a dentist? NoIntake performed by: Kendra Phoenix, June 07, 2019 10:36 AMRate Your HealthIn general, would you say your health is? FairPain AssessmentAre you currently having any pain which... You would like your provider to address? No Affects your activity level? NoDepression Screening - PHQ-2Over the last two weeks, have you... Had little interest or pleasure in doing things? Not at all Been feeling down, depressed, or hopeless? Not at all PHQ-2 Score: 0Anxiety Screening - ONIEL-2Over the last two weeks, have you been... Feeling nervous, anxious, or on edge? Not at all Unable to stop or control worrying? Not at all ONIEL-2 Score: 0Food InsecurityWithin the past year...Did you worry whether your food would run out before you got money to buy more? NoWas there a time when the food you bought didn't last and you didn't have money to get more? NoInfectious Disease- Travel Cont. Any possibility of ? NoScreening, Brief Intervention, & Referral to Treatment (SBIRT)Pre-Screening Questions How many times have you have 4 or more drinks in a day? 0How many times have you used an illegal drug or used a prescription medication for a non-medical reason? 0Performed by: Kendra Phoenix, June 07, 2019 10:36 AMPatient History Medical History:AnxietyDepressionfibromylgiadegenerative disc diseasecarpel tunnelvertigodecompression in shoulderpecysts on liverPTSDSurgical History:Hysterectomy (Partial)carpel tunneldecompression in shoulderback surgeryFamily History:Depression (Mother)Dementia (Mother)Cancer - Skin (Paternal Grandfather)Cancer - Unknown (Maternal Grandmother)Diabetes (Maternal Grandfather)Social/Personal History: Smoking Status: current every day smokerAdvised to Quit/Tobacco Education: YesChief Complaintmed follow up, thinks they need to be raised, also coughHistory of Present Illness (HPI)Pt is here for follow-up on Zoloft.Pt has previously been on medication before and was previously on a higher dose. She feels it has been improving, states she has now cared enough to take a shower for the first time in the last 30 days.Pt is complaining of left heel pain ongoing, painful when walking but not significantly painful to touch. Denies injury, trauma, swelling, redness. Pt also complaining of dry mouth. Pt was given a sample spray by her dentist which works well but she states she can't afford it OTC and it unfortunately is not listed to prescribe in the EMR. HPI performed by: Glen ERNST, June 07, 2019 10:53 AMTransitions of Care InboundProblem ReviewProblem List was reviewed and/or updated during this visit.Medication Reconciliation & ReviewMedication List was reviewed and/or updated during this visit, including review of any qtde-mdd-tytqucd medications, herbal therapies, and/or supplements.Allergy ReviewAllergy List was reviewed and/or updated during this visit.Adult Preventive CareScreening Tobacco Screening: Smoking Status: current every day smoker (06/07/2019) Advised to Quit: Yes (06/07/2019)Labs/Meds/Other Counseling-Nutrition and Physical Activity:BMI Interpretation: Overweight (06/07/2019) Counseling: Done (06/07/2019) Physical Activity: Done (06/07/2019)Review of Systems General: Denies loss of appetite, dizziness, fever, feeling ill. Cardiovascular: Denies chest pain, palpitations, feeling faint. Gastrointestinal: Denies nausea, vomiting, diarrhea. Psychiatric: Complains of depression. Denies see HPI, suicidal ideation, paranoia, hearing voices. Physical ExamGeneral Appearance: well nourished, well hydrated, no acute distressRespiratory, Auscultation: clear to auscultation bilaterally; no r ales, rhonchi, or wheezesCardiovascular, Auscultation: S1, S2 audible; no murmur, rub, or gallop; RRRAbdomen: soft, non-tender, no masses, bowel sounds normalGait & Station: normalFoot Inspection, Right: normal examFoot Inspection, Left: normal exam, FROM, no bony tenderness, nontender on achillesOrientation: oriented to time, place, and personMood & Affect: no depression, anxiety, or agitationJudgment & Insight: intactCare Management Plan Transitions of CareInboundRate Your HealthIn general, would you say your health is? FairAssessment & Plan Problems:Added: Xerostomia (ICD-527.7) (SFR13-O57.2) Assessment: Instructions: Biotene gargle prescribed, may also buy over the counter.Pain of left heel (VPD11-X23.672) Assessment: Instructions: Xray ordered. Possibly plantar fasciitis, depending on xray. Referral to podiatry. Supportive measures: heat/ice alternating, tylenol as needed for discomfort.Assessed:Anxiety depression (ICD-300.09) (WXN21-M87.8) Assessment: Instructions: Increase Zoloft to 100mg daily, take 2 of your current 50mg tablets and call for refill. Continue with pending referral to telepsychiatry.Patient Instructions/Care Plan: Anxiety depression: Increase Zoloft to 100mg daily, take 2 of your current 50mg tablets and call for refill. Continue with pending referral to telepsychiatry.Xerostomia: Biotene gargle prescribed, may also buy over the counter.Pain of left heel: Xray ordered. Possibly plantar fasciitis, depending on xray. Referral to podiatry. Supportive measures: heat/ice alternating, tylenol as needed for discomfort. Plan developed in collaboration with patient and/or familyMedications:BIOTENE DRY MOUTH MOUTH/THROAT LIQUIDINCRUSE ELLIPTA 62.5 MCG/INH INHALATION AEROSOL POWDER BREATH ACTIVATEDGEODON 20 MG ORAL CAPSULEZOL OFT 50 MG ORAL TABLETSPIRIVA RESPIMAT 2.5 MCG/ACT INHALATION AEROSOL SOLUTIONINCRUSE ELLIPTA 62.5 MCG/INH INHALATION AEROSOL POWDER BREATH ACTIVATEDTOPAMAX 25 MG ORAL TABLETOMEPRAZOLE 40 MG ORAL CAPSULE DELAYED RELEASENEBULIZERNEBULIZERALBUTEROL SULFATE (2.5 MG/3ML) 0.083% INHALATION NEBULIZATION SOLUTIONMedication Changes:New Prescription:BIOTENE DRY MOUTH MOUTH/THROAT LIQUID-Gargle rinse and spit once daily Qty: 1[Bottle] Refills: 2 Method: ElectronicChanged:From: ORAL ZOLOFT 50 MG ORAL TABLET Qty: [id number] Refills: 30[Tablet] To: ZOLOFT 50 MG ORAL TABLET-Take 2 tablets by mouth once dailyAllergies:MORPHINE (Critical)* CYMBALTA (Critical)HYDROCODONE (Critical)Orders:X-Ray - Calcaneus, minimum of 2 views [CPT-32640] Adult - Ofc Vst, EST, Level III [CPT-07135] Follow-Up Return to clinic: in 4 weeks for follow upAdditional Follow-Up: med follow-upClinical Visit Summary CompletedMedications:BIOTENE DRY MOUTH MOUTH/THROAT LIQUID (MOUTHWASHES) Gargle rinse and spit once daily #1[Bottle] x 2 Route:MOUTH/THROAT Entered and Authorized by: Glen ERNST Method used: Electronically to [facility] * (retail) [address] [place] [address] Note to Pharmacy: Route: MOUTH/THROAT; Indications: XEROSTOMIA RxID: [id number] signed by Glen ERNST on 06/12/2019 at 8:05 AM Name Value Range Interpretation Code Description Data Birgit rce(s) Supporting Document(s) ID Date Data Source [id number] 05/24/2019 09:56:24 AM [facility] Measurements & CalculationsHeight: 65 inches (5 ft. 5 in.) 165.10 cm Weight: 172 pounds 78.18 kg Body Mass Index (BMI): 28.73BMI Interpretation: OverweightBody Surface Area (BSA): 1.86Weight Management Education Done (Nutrition/Physical Activity)Vital SignsTemperature: 97.8FPulse Rate: 86 beats/minuteRespiratory Rate: 18 respirations/minuteBlood Pressure: 132/87 O2 Saturation: 95% Vital Signs performed by: Lacy Delacruz MA, May 24, 2019 10:06 AMVital Signs performed by: Glen ERNST, May 24, 2019 10:20 AMInitial Intake Information from: patientRoom #: 8Infectious Disease- Travel Have you or your sexual partner travelled outside of the country recently? NoSmoking, Tobacco or Smoke Exposure StatusSmoke Status: current every day smokerTobacco Use: YesAdv to Quit: YesPassive Smoke Exposure: YesMenstrual HistoryAny possibility of ? NoHealthcare HistorySince your last office visit...Have you [facility]: [facility]Have you been to an emergency room (ER) or urgent care clinic? [facility] (ER) or urgent care date reported today: 05/18/2019Have you seen another healthcare provider? NoHave you seen a dentist? NoIntake performed by: Lacy Delacruz MA, May 24, 2019 9:58 AMRate Your HealthIn general, would you say your health is? FairPain AssessmentAre you currently having any pain which... You would like your provider to address? No Affects your activity level? NoDepression Screening - PHQ-2Over the last two weeks, have you... Had little interest or pleasure in doing things? Nearly every day Been feeling down, depressed, or hopeless? Nearly every day PHQ-2 Score: 6Anxiety Screening - ONIEL-2Over the last two weeks, have you been... Feeling nervous, anxious, or on edge? Not at all Unable to stop or control worrying? Not at all ONIEL-2 Score: 6Infectious Disease- Travel Cont. Any possibility of ? NoGeneralized Anxiety Disorder 7-Item Screening (ONIEL-7)Answer Guide:0 = Not at all1 = Several days2 = Over half the days3 = Nearly every dayOver the last 2 weeks, how often have you been bothered by the following problems?Feeling nervous, anxious, or on edge: 3Not being able to stop or control worryinWorrying too much about different things: 3Trouble relaxinBeing so restless that it's hard to sit still: 3Becoming easily annoyed or irritable: 3Feeling afraid as if something awful might happen: 3Answer Guide:0 = Not difficult at all1 = Somewhat difficult2 = Very difficult3 = Extremely difficultHow difficult have these made it for you to do your work, take care of things at home, or get along with other people? 3GAD-7 Screening Results ONIEL-2 Score: 6GAD-7 Score: 21Functional Impairment: Extremely difficultRecommendation: Severe anxietyPHQ-9 1. Over the last 2 weeks, patient reports the following frequency of symptoms: a. Little interest or pleasure in doing things -Nearly every day b. Feeling down, depressed, or hopeless -Nearly every day c. Trouble falling asleep, staying asleep, or sleeping too much -Nearly every day d. Feeling tired or having little energy -Nearly every day e. Poor appetite or overeating -Nearly every day f. Feeling bad about yourself, feeling that you are a failure, or feeling that you have let yourself or your family down -Nearly every day g. Trouble concentrating on things such as reading the newspaper or watching television -Nearly every day h. Moving or speaking so slowly that other people could have noticed. Or being so fidgety or restless that you have been moving around a lot more than usual -Nearly every day i. Thinking that you would be better off or that you want to hurt yourself in some way -Not at all2. If you checked off any problems, how difficult have these problems made it for you to do your work, take care of things at home, or get along with other people? -Extremely DifficultToday's PHQ-9 Results Score: 25 Severity: Severe Diagnosis Recommendation: Major Depression Functional Impairment: Extremely DifficultDepression Screening Follow-Up ActionToday's Follow-Up Action Depression follow-up done. Follow-Up Action: Prescribed antidepressant medicationScreening, Brief Intervention, & Referral to Treatment (SBIRT)Pre-Screening Questions How many times have you have 4 or more drinks in a day? 0How many times have you used an illegal drug or used a prescription medication for a non-medical reason? 0Performed by: Lacy Delacruz MA, May 24, 2019 9:59 AMPatient History Medical History:A nxietyDepressionfibromylgiadegenerative disc diseasecarpel tunnelvertigodecompression in shoulderpecysts on liverPTSDSurgical History:Hysterectomy (Partial)carpel tunneldecompression in shoulderback camacho geryFamily History:Depression (Mother)Dementia (Mother)Cancer - Skin (Paternal Grandfather)Cancer - Unknown (Maternal Grandmother)Diabetes (Maternal Grandfather)Social/Personal History: Smoking Status: current every day smokerAdvised to Quit/Tobacco Education: YesChief Complainter fu, sinus congestion, SOB, headache. anxiety and depression History of Present Illness (HPI)Pt is a 44 y/o female, presents for 05/18/2019 ER follow-up for shortness of breath and chest pain.[facility], given azithromycin felt better for one day after finishing the antibx, then worse again. Had chest xray both times. Pt reports anxiety and depression that she would like treatment for. States she was previously on Zoloft, amytriptaline, ativan, and did well with those medications. HPI performed by: Glen ERNST, May 24, 2019 10:21 AMTransitions of Care InboundProblem ReviewProblem List was reviewed and/or updated during this visit.Medication Reconciliation & ReviewMedication List was reviewed and/or updated during this visit, including review of any qakr-jfh-cbghuwd medications, herbal therapies, and/or supplements.Allergy ReviewAllergy List was reviewed and/or updated during this visit.Adult Preventive CareProvider Calculated and Reviewed all Clinical Protocols for patient today. Screening Tobacco Screening: Smoking Status: current every day smoker (05/24/2019) Advised to Quit: Yes (05/24/2019)Labs/Meds/Other Counseling-Nutrition and Physical Activity:BMI Interpretation: Overweight (05/24/2019) Counseling: Done (05/24/2019) Physical Activity: Done (05/24/2019)Review of Systems General: Denies chills, dizziness, fever, feeling ill. Cardiovascular: Complains of chest pain. Denies palpitations, feeling faint, peripheral edema, elevated blood pressure. Respiratory: Complains of cough, shortness of breath, chest pain. Denies coughing up blood. Gastrointestinal: Denies nausea, vomiting, diarrhea. Neurologic: Denies weakness, feeling faint. Psychiatric: Complains of depression, anxiety, feeling stressed. Denies suicidal ideation, homicidal ideation. Physical ExamGeneral Appearance: well nourished, well hydrated, no acute distressEyes, External: conjunctivae and lids normal, EOMIChest Wall: no masses, mild sternal pain with palpation, no crepitationsRespiratory, Auscultation: expiratory wheeaes bilaterallyRespiratory, Effort: no intercostal retractions or use of accessory musclesCardiovascular, Auscultation: S1, S2 audible; no murmur, rub, or gallop; RRRPeripheral Circulation: no clubbing, cyanosis, edema, or varicositiesAbdomen: soft, non-tender, no masses, bowel sounds normalGait & Station: normalSkin, Inspection: no rashes, lesions, or ulcerationsOrientation: oriented to time, place, and personMood & Affect: some aggitation and anxietyJudgment & Insight: intactCare Management Plan Transitions of CareInboundRate Your HealthIn general, would you say your health is? FairAssessment & Plan Problems:Assessed:Chronic obstructive pulmonary disease, unspecified (ICD10- J44.9) Assessment: Instructions: No sustained improvement with azithromycin, will start Augmentin twice daily. Eat yogurt daily while on antibiotics. Start Incruse Ellipta inhaler as prescribed, Spiriva was denied by your insurance. Pulmonology referral generated today.Anxiety depression (ICD-300.09) (IIR22-V84.8) Assessment: Instructions: Restart titration of p rior medications that have worked well for you previously. Pending referrals to mental health counselor and telepsychiatry. ER for suicidal ideation/intention.Congenital cystic disease of liver (ICD-751.62) (RTD58-U60.6) Assessment: Instructions: GI referral sent today. A referral has been made for you today. Our referral department or the referral office itself with contact you with further instructions on how to setup your referral appointment. If you do not hear any correspondence in two weeks, please call [facility] to ask about your referral status.Splenic cyst (ICD-289.59) (BIR93-R09.4) Assessment: Instructions: GI referral sent today.History of polyp of colon (ICD-V12.72) (YVG79-K30.010) Assessment: Instructions: GI referral sent today.Aching headache (ICD-784.0) (CAX30-O03) Assessment: Instructions: Hx of migraines. Referral generated to neurology.Schizoaffective disorder, bipolar type (ICD- 295.70) (PZC68-K71.0) Assessment: Instructions: As above.Patient Instructi ons/Care Plan: Chronic obstructive pulmonary disease- unspecified: No sustained improvement with azithromycin, will start Augmentin twice daily. Eat yogurt daily while on antibiotics. Start Incruse Ellipta inhaler as prescribed, Spiriva was denied by your insurance. Pulmonology referral generated today.Anxiety depression: Restart titration of prior medications that have worked well for you previously. Pending referrals to mental health counselor and telepsychiatry. ER for suicidal ideation/intention.Congenital cystic disease of liver: GI referral sent today. A referral has been made for you joanne ardon. Our referral department or the referral office itself with contact you with further instructions on how to setup your referral appointment. If you do not hear any correspondence in two weeks, please call [facility] to ask about your referral status.Splenic cyst: GI referral sent today.History of polyp of colon: GI referral sent today.Aching headache: Hx of migraines. Referral generated to neurology.Schizoaffective disorder- bipolar type: As above. Plan developed in collaboration with patient and/or familyMedications:BENZONATATE 100 MG ORAL CAPSULEINCRUSE ELLIPTA 62.5 MCG/INH INHALATION AEROSOL POWDER BREATH ACTIVATEDATIVAN 0.5 MG ORAL TABLETGEODON 20 MG ORAL CAPSULEZOLOFT 50 MG ORAL TABLETAMOXICILLIN-POT CLAVULANATE 875-125 MG ORAL TABLETSPIRIVA RESPIMAT 2.5 MCG/ACT INHALATION AEROSOL SOLUTIONINCRUSE ELLIPTA 62.5 MCG/INH INHALATION AEROSOL POWDER BREATH ACTIVATEDTOPAMAX 25 MG ORAL TABLETOMEPRAZOLE 40 MG ORAL CAPSULE DELAYED RELEASENEBULIZERNEBULIZERALBUTEROL SULFATE (2.5 MG/3ML) 0.083% INHALATION NEBULIZATION SOLUTIONMedication Changes:Refilled:TOPAMAX 25 MG ORAL TABLET-take 1 tablet by mouth daily Qty: 30[Tablet] Refills: 1 Method: ElectronicNew Prescription:AMOXICILLIN-POT CLAVULANATE 875-125 MG ORAL TABLET- Take 1 tablet by mouth twice daily Qty: 20[Tablet] Refills: 0 Method: ElectronicZOLOFT 50 MG ORAL TABLET-Take 1 tablet by mouth once daily Qty: 30[Tablet] Refills: 1 Method: ElectronicGEODON 20 MG ORAL CAPSULE-Take 1 tablet by mouth once daily Qty: 30[Capsule] Refills: 1 Method: ElectronicATIVAN 0.5 MG ORAL TABLET-Take 1 tablet by mouth twice daily Qty: 28 [Tablet] Refills: 0 Method: ElectronicINCRUSE ELLIPTA 62.5 MCG/INH INHALATION AEROSOL POWDER BREATH ACTIVATED-Take 1 puff by mouth inhalation once daily Qty: 1[Inhaler] Refills: 1 Method: ElectronicBENZONATATE 100 MG ORAL CAPSULE-Take 1 capsule by mouth three times daily for cough Qty: 30[Capsule] Refills: 0 Method: ElectronicRemoved:TESSALON PERLES 100 MG ORAL CAPSULE- take one tablet by mouth three times daily as needed, Qty: 15[Capsule] Refills: 0, MUCINEX 600 MG ORAL TABLET EXTENDED RELEASE 12 HOUR-take one tablet by mouth twice daily x 7 days. Qty: 14[Tablet] Refills: 0, PREDNISONE 10 MG ORAL TABLET- take one tablet by mouth daily daily x 5 days Qty: 5[Tablet] Refills: 0, CHANTIX STARTING MONTH CHEY 0.5 MG X 11 & 1 MG X 42 ORAL TABLET-uad Qty: 1[Tablet] Refills: 0, CHANTIX CONTINUING MONTH CHEY 1 MG ORAL TABLET-uad- begin after starter pack completed Qty: 1[Tablet] Refills: 5Changed: To: TOPAMAX 25 MG ORAL TABLET-take 1 tablet by mouth daily Qty: 30[Tablet] Refills: 1Allergies:MORPHINE (Critical)* CYMBALTA (Critical)HYDROCODONE (Critical)Orders:Adult - Ofc Vst, EST, Level III [CPT-39986] Pulmonology Consult [CPT-88561] Gastroenterology Consult [CPT-84655] Follow-Up Return to clinic: in 2 weeks for follow upAdditional Follow-Up: med follow-upClinical Visit Summary CompletedMedications:BENZONATATE 100 MG ORAL CAPSULE (BENZONATATE) Take 1 capsule by mouth three times daily for cough #30[Capsule] x 0 Route:ORAL Entered and Authorized by: Glen ERNST Method used: Electronically to [facility] (retail) [address] [place] [address] Note to Pharmacy: Route: ORAL; RxID: [id number] 25 MG ORAL TABLET (TOPIRAMATE) take 1 tablet by mouth daily #30[Tablet] x 1 Entered and Authorized by: Glen ERNST Method used: Electronically to [facility] (retail) [address] [place] [address] Note to Pharmacy: Route: ORAL; RxID: [id number] ELLIPTA 62.5 MCG/INH INHALATION AEROSOL POWDER BREATH ACTIVATED (UMECLIDINIUM BROMIDE) Take 1 puff by mouth inhalation once daily #1[Inhaler] x 1 Route:INHALATION Entered and Authorized by: Glen ERNST Method used: Electronically to [facility] (retail) [address] [place] [address] Note to Pharmacy: Route: INHALATION; Indications: CHRONIC OBSTRUCTIVE PULMONARY DISEASE, UNSPECIFIED RxID: [id number] 0.5 MG ORAL TABLET (LORAZEPAM) Take 1 tablet by mouth twice daily #28[Tablet] x 0 Route:ORAL Entered and Authorized by: Glen ERNST Method used: Electronically to [facility] (retail) [address] [place] [address] Note to Pharmacy: Route: ORAL; Indications: ANXIETY DEPRESSION;SCHIZOAFFECTIVE DISORDER, BIPOLAR TYPE RxID: [id number] 20 MG ORAL CAPSULE (ZIPRASIDONE HCL) Take 1 tablet by mouth once daily #30[Capsule] x 1 Route:ORAL Entered and Authorized by: Glen ERNST Method used: Electronically to [facility] (retail) [address] [place] [address] Note to Pharmacy: Route: ORAL; Indications: ANXIETY DEPRESSION;SCHIZOAFFECTIVE DISORDER, BIPOLAR TYPE RxID: [id number] 50 MG ORAL TABLET (SER TRALINE HCL) Take 1 tablet by mouth once daily #30[Tablet] x 1 Route:ORAL Entered and Authorized by: Glen ERNST Method used: Electronically to [facility] (retail) [address] [place] [address] Note to Pharmacy: Route: ORAL; Indications: ANXIETY DEPRESSION;SCHIZOAFFECTIVE DISORDER, BIPOLAR TYPE RxID: [id number] CLAVULANATE 875-125 MG ORAL TABLET (AMOXICILLIN-POT CLAVULANATE) Take 1 tablet by mouth twice daily #20[Tablet] x 0 Route:ORAL Entered and Authorized by: Glen ERNST Method used: Electronically to [facility] (retail) [address] [place] [address] Ph: [phone] Note to Pharmacy: Route: ORAL; Indications: CHRONIC OBSTRUCTIVE PULMONARY DISEASE, UNSPECIFIED RxID: [id number] CHANTIX CONTINUING MONTH CHEY 1 MG ORAL TABLET (VARENICLINE TARTRATE) uad- begin after starter pack completed #1[Tablet] x 5 Route:ORAL Entered by: Lacy Delacruz MA Authorized by: Rachel Lucas MD Method used: Electronically to [facility] (retail) [address] [place] [address] RxID: [id number] CHANTIX STARTING MONTH CHEY 0.5 MG X 11 & 1 MG X 42 ORAL TABLET (VARENICLINE TARTRATE) uad #1[Tablet] x 0 Route:ORAL Entered by: Lacy Delacruz MA Authorized by: Rachel Lucas MD Method used: Electronically to [facility] (retail) [address] [place] [address] RxID: [id number] PREDNISONE 10 MG ORAL TABLET (PREDNISONE) take one tablet by mouth daily daily x 5 days #5[Tablet] x 0 Route:ORAL Entered by: Lacy Delacruz MA Authorized by: Kassidy FLORES Method used: Electronically to [facility] (retail) [address] [place] [address] Fax: RxID: [id number] MUCINEX 600 MG ORAL TABLET EXTENDED RELEASE 12 HOUR (GUAIFENESIN) take one tablet by mouth twice daily x 7 days. #14[Tablet] x 0 Route:ORAL Entered by: Lacy Delacruz MA Authorized by: Kassidy FLORES Method used: Electronically to [facility] (retail) [address] [place] [address] RxID: [id number] TESSALON PERLES 100 MG ORAL CAPSULE (BENZONATATE) take one tablet by mouth three times daily as needed, #15[Capsule] x 0 Route:ORAL Entered by: Lacy Delacruz MA Authorized by: Kassidy FLORES Method used: Electronically to [facility] (retail) [address] [place] [address] RxID: [id number] signed by Glen ERNST on 05/30/2019 at 8:49 AM Name Value Range Interpretation Code Description Data Birgit rce(s) Supporting Document(s) ID Date Data Source [id number] 05/12/2019 03:10:48 PM [facility] Measurements & CalculationsHeight: 65 inches (5 ft. 5 in.) 165.10 cm Weight: 164 pounds 4 oz. 74.66 kg Body Mass Index (BMI): 27.43BMI Interpretation: OverweightBody Surface Area (BSA): 1.82Weight Management Education Done (Nutrition/Physical Activity)Vital SignsTemperature: 98.2FPulse Rate: 98 beats/minuteRespiratory Rate: 17 respirations/minuteBlood Pressure: 131/90 O2 Saturation: 96% Vital Signs performed by: Ailyn Nash MA, May 12, 2019 3:27 PMInitial Intake Information from: patientRoom #: 14Infectious Disease- Travel Have you or your sexual partner travelled outside of the country recently? NoSmoking, Tobacco or Smoke Exposure StatusSmoke Status: current every day smokerTobacco Use: YesAdv to Quit: YesPassive Smoke Exposure: YesMenstrual HistoryComments: Partial Hysterctomy Healthcare HistorySince your last office visit...Have you been admitted to the hospital? Yes - SMCHave you been to an em ergency room (ER) or urgent care clinic? Yes - SMCHave you seen another healthcare provider? NoHave you seen a dentist? NoIntake performed by: Ailyn Nash MA, May 12, 2019 3:18 PMRate Your HealthIn general, would you say your health is? FairPain AssessmentAre you currently having any pain which... You would like your provider to address? No Affects your activity level? NoDepression Screening - PHQ-2Over the last two weeks, have you... Had little interest or pleasure in doing things? Nearly every day Been feeling down, depressed, or hopeless? Nearly every day PHQ-2 Score: 6Anxiety Screening - ONIEL- 2Over the last two weeks, have you been... Feeling nervous, anxious, or on edge? Nearly every day Unable to stop or control worrying? Nearly every day ONIEL-2 Score: 6Generalized Anxiety Disorder 7-Item Screening (ONIEL-7)Answer Guide:0 = Not at all1 = Several days2 = Over half the days3 = Nearly every dayOver the last 2 weeks, how often have you been bothered by the following pro blems?Feeling nervous, anxious, or on edge: 3Not being able to stop or control worryinWorrying too much about different things: 3Trouble relaxinBeing so restless that it's hard to sit still: 3Becoming easily annoyed or irritable: 3Feeling afraid as if something awful might happen: 3Answer Guide:0 = Not difficult at all1 = Somewhat difficult2 = Very difficult3 = Extremely difficultHow difficult have these made it for you to do your work, take care of things at home, or get along with other people? 3GAD-7 Screening Results ONIEL-2 Score: 6GAD-7 Score: 21Functional Impairment: Extremely difficultRecommendation: Severe anxietyPHQ-9 1. Over the last 2 weeks, patient reports the following frequency of symptoms: a. Little interest or pleasure in doing things -Nearly every day b. Feeling down, depressed, or hopeless -Nearly every day c. Trouble falling asleep, staying asleep, or sleeping too much -Nearly every day d. Feeling tired or having little energy - Nearly every day e. Poor appetite or overeating -Nearly every day f. Feeling bad about yourself, feeling that you are a failure, or feeling that you have let yourself or your family down -Nearly every day g. Trouble concentrating on things such as reading the newspaper or watching television -Nearly every day h. Moving or speaking so slowly that other people could have noticed. Or being so fidgety or restless that you have been moving around a lot more than usual -Nearly every day i. Thinking that you would be better off or that you want to hurt yourself in some way -More than half the days2. If you checked off any problems, how difficult have these problems made it for you to do your work, take care of things at home, or get along with other people? -Extremely DifficultToday's PHQ-9 Results Score: 26 Severity: Severe Diagnosis Recommendation: Major Depression Functional Impairment: Extremely DifficultDepression Screening Follow-Up ActionToday's Follow-Up Action Depression follow-up done. 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 Pt states still coughing, congession and SOB with exertion. Pt states still smoking 1 - 1 1/2 pack cigarettes daily. Pt statestrying to quit. Pt states started chantix 3 days ago. Pt states took spiriva in the the past, did well on that , requsting to restart spiriva. HPI performed by: Kassidy FLORES, May 12, 2019 4:09 PMTransitions of Care InboundProblem ReviewProblem List was reviewed and/or updated during this visit.Medication Reconciliation & ReviewMedication List was reviewed and/or updated during this visit, including review of any cflg-bbd-ofkokfs medications, herbal therapies, and/or supplements.Allergy ReviewAllergy List was reviewed and/or updated during this visit.Adult Preventive CareScreening Tobacco Screening: Smoking Status: current every day smoker (05/12/2019) Advised to Quit: Yes (05/12/2019)Labs/Meds/Other Counseling-Nutrition and Physical Activity:BMI Interpretation: Overweight (05/12/2019) Counseling: Done (05/12/2019) Physical Activity: Done (05/12/2019)Review of Systems General: Denies loss of appetite, chills, dizziness, fatigue, fever, continued fever, headache, feeling ill, sweats, night sweats, sleep disturbances, weight loss. Eyes: Denies blurring of vision, double vision, irritation, discharge, vision loss, eye pain, eye swelling, droopy eyelid, sensitivity to light, redness, itching. Ears/Nose/Throat: Complains of nasal congestion. Denies earache, ear discharge, ringing in ears, decreased hearing, nosebleeds, runny nose, sore throat, hoars eness, difficulty swallowing, dry mouth, tooth pain, bleeding gums, swollen glands. Cardiovascular: Complains of trouble breathing w/exertion. Denies chest pain, palpitations, feeling faint, SOB upon lying down, SOB at night, peripheral edema, elevated blood pressure, decreased heart rate. Respiratory: Complains of cough, wheezing. Denies difficulty breathing, shortness of breath, excessive sputum, coughing up blood, chest pain. Breast: Denies discoloration, tenderness, breast changes, breast lump, nipple discharge. Gastrointestinal: Denies nausea, vomiting, bleeding, burning, itching, irritation, cramps, diarrhea, constipation. Genitourinary: Denies urinary incontinence, pain with urination, burning with urination, urinary frequency, urinary hesitancy, urinary urgency, urinary urgency at night, incomplete emptying, blood in urine, pelvic pain. Musculoskeletal: Complains of body aches. Denies back pain, joint pain, leg pain, other pain-see comments, joint swelling, muscle aches, muscle cramps, muscle weakness, stiffness, recent injury. Skin: Denies rash, hives, redness, itching, dryness, nail changes, suspicious lesions, athlete's foot, rash on palms, rash on bottom of feet. Neurologic: Denies muscle impairment, weakness, numbness/tingling, seizures, slurred speech, feeling faint, tremors, vertigo, paralysis on one side, paralysis on both sides. Psychiatric: Complains of depression, anxiety. Denies memory loss, mental disturbance, suicidal ideation, homicidal ideation, hallucinations, paranoia, feeling stressed, hearing voices. Endocrine: Denies cold intolerance, heat intolerance, excessive thirst, excessive hunger, excessive urination, weight loss, weight gain. Heme/Lymphatic: Denies abnormal bruising, bleeding, enlarged lymph nodes. Physical ExamGeneral Appearance: well nourished, well hydrated, no acute distressEyes, External: conjunctivae and lids normal, EOMIRespiratory, Auscultation: expiratory wheeaes bilaterallyRespiratory, Effort: no intercostal retractions or use of accessory musclesCardiovascular, Auscultation: S1, S2 audible; no murmur, rub, or gallop; RRRPeripheral Circulation: no clubbing, cyanosis, edema, or varicositiesAbdomen: soft, non-tender, no masses, bowel sounds normalGait & Station: normalSkin, Inspection: no rashes, lesions, or ulcerationsOrientation: oriented to time, place, and personMood & Affect: some aagitation on presentationJudgment & Insight: needs further assesmentCare Management Plan Transitions of CareInboundRate Your HealthIn general, would you say your health is? FairAssessment & Plan Problems:Added: Chronic obstructive pulmonary disease, unspecified (UZD33-M57.9) Assessment: Instructions: We have sent a prescription to restgart your spirivaa. Please use medication as prescribed. Please report any major side effects.Acute upper respiratory infection, unspecified (NDU83-J47.9) Assessment: Instructions: We have sent a prescription to your pharmacy today. Please continue medications received from the ER until all done. continue prednisone 10 mg as prescribed. please continue to try to quit smoking. please try to maintain adequate rest. good nutritionand adequate hydration. please continue albuteral as needed for SOB and increased wheezing. If symptoms worsen, please return to the hospital ER 911.Cough (ICD-786.2) (DQI67-L11) Assessment: Instructions: We have sent p prescription to your pharmacy today.Expiratory wheezing (ICD-786.07) (ICD10- R06.2) Assessment: Instructions: Please continue medication as prescribed. Please continue to try to quit smoking.Anxiety depression (ICD-300.09) (ICD10- F41.8) Assessment: PHQ 9 and ONIEL 7 scores reviewed with patient. Referral made to therapy and telepsych Instructions: We have made a referral for you today. We will contact you to set this up. Please continue to monitor , report and avoid triggers causing increassed anxiety and or depression.Assessed:Nicotine dependence, cigarettes, uncomplicated (ICD10- F17.210) Assessment: Pt states smokes aboiut 1- 11/2 pack cigarettes daily. pt states started chantix 3 days ago in an effort to try to quit smoking. Instructions: congratulations on your decision to try to quit smoking. Please continue chantix as prescribed.Please let us know if you need additional assistance.Assessment not Saved Nicotine dependence; cigarettes; uncomplicated (XVP21-M20.210): Patient Instructions/Care Plan: Chronic obstructive pulmonary disease- unspecified: We have sent a prescription to restgart your spirivaa. Please use medication as prescribed. Please report any major side effects.Nicotine dependence- cigarettes- uncomplicated: congratulations on your decision to try to quit smoking. Please continue chantix as prescribed.Please let us know if you need additional assistance.Acute upper respiratory infection- unspecified: We have sent a prescription to your pharmacy today. Please continue medications received from the ER until all done. continue prednisone 10 mg as prescribed. please continue to try to quit smoking. please try to maintain adequate rest. good nutritionand adequate hydration. please continue albuteral as needed for SOB and increased wheezing. If symptoms worsen, please return to the hospital ER 911.Cough: We have sent p prescription to your pharmacy today.Expiratory wheezing: Please continue medication as prescribed. Please continue to try to quit smoking.Anxiety depression: We have m maricruz a referral for you today. We will contact you to set this up. Please continue to monitor , report and avoid triggers causing increassed anxiety and or depression. Plan developed in collaboration with patient and/or familyMedications:SPIRIVA RESPIMAT 2.5 MCG/ACT INHALATION AEROSOL SOLUTIONTESSALON PERLES 100 MG ORAL CAPSULEMUCINEX 600 MG ORAL TABLET EXTENDED RELEASE 12 HOURPREDNISONE 10 MG ORAL TABLETCHANTIX STARTING MONTH CHEY 0.5 MG X 11 & 1 MG X 42 ORAL TABLETCHANTIX CONTINUING MONTH CHEY 1 MG ORAL TABLETINCRUSE ELLIPTA 62.5 MCG/INH INHALATION AEROSOL POWDER BREATH ACTIVATEDTOPAMAX 25 MG ORAL TABLETOMEPRAZOLE 40 MG ORAL CAPSULE DELAYED RELEASENEBULIZERNEBULIZERALBUTEROL SULFATE (2.5 MG/3ML) 0.083% INHALATION NEBULIZATION SOLUTIONMedication Changes:New Prescription:PREDNISONE 10 MG ORAL TABLET-take one tablet by mouth daily daily x 5 days Qty: 5[Tablet] Refills: 0 Method: ElectronicMUCINEX 600 MG ORAL TABLET EXTENDED RELEASE 12 HOUR-take one tablet by mouth twice daily x 7 days. Qty: 14[Tablet] Refills: 0 Method: ElectronicTESSALON PERLES 100 MG ORAL CAPSULE-take one tablet by mouth three times daily as needed, Qty: 15[Capsule] Refills: 0 Method: ElectronicSPIRIVA RESPIMAT 2.5 MCG/ACT INHALATION AEROSOL SOLUTION-one inhalation by mouth twice daily Qty: 1[Inhaler] Refills: 1 Method: ElectronicAllergies:MORPHINE (Critical)* CYMBALTA (Critical)HYDROCODONE (Critical)Orders:Mental Health Consult [CPT-27762] Telepsychiatry Consult [CPT-97059] Adult - Ofc Vst, EST, Level IV [CPT-95784] Follow-Up Return to clinic: 4-6 weeks for follow up Additional Follow-Up: if symptoms worsen, please reurn to clinic or the ER. Clinical Visit Summary CompletedMedications:SPIRIVA RESPIMAT 2.5 MCG/ACT INHALATION AEROSOL SOLUTION (TIOTROPIUM BROMIDE MONOHYDRATE) one inhalation by mouth twice daily #1[Inhaler] x 1 Route:INHALATION Entered and Authorized by: Kassidy FLORES Method used: Electronically to [facility] (retail) [address] [place] [address]: Note to Pharmacy: Route: INHALATION; Indications: CHRONIC OBSTRUCTIVE PULMONARY DISEASE, UNSPECIFIED RxID: [id number] PERLES 100 MG ORAL CAPSULE (BENZONATATE) take one tablet by mouth three times daily as needed, #15[Capsule] x 0 Route:ORAL Entered and Authorized by: Kassidy FLORES Method used: Electronically to [facility] (retail) [address] [place] [address] Ph: Note to Pharmacy: Route: ORAL; I ndications: COUGH;ACUTE UPPER RESPIRATORY INFECTION, UNSPECIFIED RxID: [id number] 600 MG ORAL TABLET EXTENDED RELEASE 12 HOUR (GUAIFENESIN) take one tablet by mouth twice daily x 7 days. #14[Tablet] x 0 Route:ORAL Entered and Authorized by: Kassidy FLORES Method used: Electronically to [facility] (retail) [address] [place] [address] Note to Pharmacy: Route: ORAL; Indications: COUGH;ACUTE UPPER RESPIRATORY INFECTION, UNSPECIFIED RxID: [id number] 10 MG ORAL TABLET (PREDNISONE) take one tablet by mouth daily daily x 5 days #5[Tablet] x 0 Route:ORAL Entered and Authorized by: Kassidy FLORES Method used: Electronically to [facility] (retail) [address] [place] [address] Fax: Note to Pharmacy: Route: ORAL; RxID: [id number] y signed by Kassidy FLORES on 05/13/2019 at 8:41 PM Name Value Range Interpretation Code Description Data Birgit rce(s) Supporting Document(s) Procedure Vital Signs ID Date Data Source UNK Name Value Range Interpretation Code Description Data Source(s) Body weight 83.916 kg 83.916 kg [facility] ([facility]) Body mass index (BMI) [Ratio] 30.8 kg/m2 30.8 k g/m2 [facility] ([facility]) Body weight 185.00 [lb_av] 185.00 [lb_av] [facility] ([facility]) Body height 65 [in_i] 65 [in_i] [facility] ([facility]) 5'5" Body temperature 98.8 [degF] 98.8 [degF] [facility] ([facility]) Oxygen saturation in Arterial blood by Pulse oximetry 98 % 98 % [facility] ([facility]) Room Air Heart rate 91 /min 91 /min [facility] ([facility]) Diastolic blood pressure 84 mm[Hg] 84 mm[Hg] [facility] ([facility]) Systolic blood pressure 130 mm[Hg] 130 mm[Hg] [facility] Body weight 77.566 kg 77.566 kg [facility] ([facility]) Body mass index (BMI) [Ratio] 28.5 kg/m2 28.5 k g/m2 [facility] ([facility]) Body weight 171.00 [lb_av] 171.00 [lb_av] [employer] ([facility]) Body height 65 [in_i] 65 [in_i] [facility] ([facility]) 5'5" Oxygen saturation in Arterial blood by Pulse oximetry 98 % 98 % [facility] ([facility]) Room Air Heart rate 89 /min 89 /min [facility] ([facility]) Diastolic blood pressure 80 mm[Hg] 80 mm[Hg] [facility] ([facility]) Systolic blood pressure 122 mm[Hg] 122 mm[Hg] [facility] ([facility]) Body weight 75.751 kg 75.751 kg [facility] ([facility]) Body mass index (BMI) [Ratio] 27.8 kg/m2 27.8 k g/m2 [facility] ([facility]) Body weight 167.00 [lb_av] 167.00 [lb_av] [facility] ([facility]) Body height 65 [in_i] 65 [in_i] [facility] ([facility]) 5'5" Diastolic blood pressure 74 mm[Hg] 74 mm[Hg] [facility] ([facility]) Systolic blood pressure 118 mm[Hg] 118 mm[Hg] [facility] ([facility]) Body mass index (BMI) [Ratio] 28.1 kg/m2 28.1 k g/m2 [facility] Heart rate 80 /min 80 /min [facility] [facility] Diastolic blood pressure 90 mm[Hg] 90 mm[Hg] [facility] ([facility] Systolic blood pressure 136 mm[Hg] 136 mm[Hg] [facility] ([facility] Body weight 169.00 [lb_av] 169.00 [lb_av] [facility] ([facility] Body height 65 [in_i] 65 [in_i] [facility] ([facility] 5'5"
--- NOTE | 2020-05-17 12:10 | ROOR ---
Patient Name: Ofelia Lantigua Procedure Date: 05/17/2020 11:24 AM Date of : 1975 Age: 45 Room: [facility] Gender: Female Note Status: Finalized Procedure: Upper GI endoscopy Indications: Epigastric abdominal pain, Dyspepsia Providers: Alexy Frank MD Referring MD: KLEVER Browning Requesting Provider: Medicines: Monitored Anesthesia Care Complications: No immediate complications. Procedure: Pre-Anesthesia Assessment: - Prior to the procedure, a History and Physical was performed, and patient medications and allergies were reviewed. The patient is competent. The risks and benefits of the procedure and the sedation options and risks were discussed with the patient. All questions were answered and informed consent was obtained. Patient identification and proposed procedure were verified by the physician, the nurse and the anesthesiologist in the procedure room. Mental Status Examination: alert and oriented. Airway Examination: normal oropharyngeal airway and neck mobility. Respiratory Examination: clear to auscultation. CV Examination: normal. Prophylactic Antibiotics: The patient does not require prophylactic antibiotics. Prior Anticoagulants: The patient has taken no previous anticoagulant or antiplatelet agents. ASA Grade Assessment: II - A patient with mild systemic disease. After reviewing the risks and benefits, the patient was deemed in satisfactory condition to undergo the procedure. The anesthesia plan was to use monitored anesthesia care (MAC). Immediately prior to administration of medications, the patient was re-assessed for adequacy to receive sedatives. The heart rate, respiratory rate, oxygen saturations, blood pressure, adequacy of pulmonary ventilation, and response to care were monitored throughout the procedure. The physical status of the patient was re-assessed after the procedure. The Endoscope was introduced through the mouth, and advanced to the second part of duodenum. The upper GI endoscopy was accomplished without difficulty. The patient tolerated the procedure well. Findings: LA Grade A (one or more mucosal breaks less than 5 mm, not extending between tops of 2 mucosal folds) esophagitis with no bleeding was found 37 cm from the incisors. Biopsies were taken with a cold forceps for histology. Verification of patient identification for the specimen was done by the physician and nurse using the patient's name, date and medical record number. Estimated blood loss was minimal. A small hiatal hernia was present. Patchy moderate inflammation characterized by erythema, granularity and linear erosions was found in the gastric antrum. Biopsies were taken with a cold forceps for Helicobacter pylori testing. Verification of patient identification for the specimen was done by the physician and nurse using the patient's name, date and medical record number. Estimated blood loss was minimal. Patchy moderately erythematous mucosa without active bleeding and with no stigmata of bleeding was found in the first portion of the duodenum. Biopsies for histology were taken with a cold forceps for evaluation of celiac disease. Impression: - LA Grade A reflux esophagitis. Biopsied. - Small hiatal hernia. - Gastritis. Biopsied. - Erythematous duodenopathy. Biopsied. Recommendation: - Patient has a contact number available for emergencies. The signs and symptoms of potential delayed complications were discussed with the patient. Return to normal activities tomorrow. Written discharge instructions were provided to the patient. - High fiber diet. - Continue present medications. - Recommend acid suppression medication. - Follow an antireflux regimen. - Await pathology results. - Telephone GI clinic for pathology results in 2 weeks. - Return to primary care physician. Procedure Code(s): --- Professional --- 81242, Esophagogastroduodenoscopy, flexible, transoral; with biopsy, single or multiple Diagnosis Code(s): --- Professional --- K21.0, Gastro-esophageal reflux disease with esophagitis K44.9, Diaphragmatic hernia without obstruction or gangrene K29.70, Gastritis, unspecified, without bleeding K31.89, Other diseases of stomach and duodenum R10.13, Epigastric pain CPT copyright 2019 [employer]. All rights reserved. The codes documented in this report are preliminary and upon vp site review may be revised to meet current compliance requirements. Alexy Frank MD Alexy Frank MD 05/17/2020 12:09:36 PM Electronically signed by Alexy Frank MD Number of Addenda: 0 Note Initiated On: 05/17/2020 11:24 AM Estimated Blood Loss: Estimated blood loss was minimal.
--- NOTE | 2020-05-17 12:15 | ROOR ---
Patient Name: Ofelia Lantigua Procedure Date: 05/17/2020 11:26 AM Date of : 1975 Age: 45 Room: [facility] Gender: Female Note Status: Finalized Procedure: Colonoscopy Indications: Screening for colorectal malignant neoplasm Providers: Alexy Frank MD Referring MD: KLEVER Browning Requesting Provider: Medicines: Monitored Anesthesia Care Complications: No immediate complications. Procedure: Pre-Anesthesia Assessment: - Prior to the procedure, a History and Physical was performed, and patient medications and allergies were reviewed. The patient is competent. The risks and benefits of the procedure and the sedation options and risks were discussed with the patient. All questions were answered and informed consent was obtained. Patient identification and proposed procedure were verified by the physician, the nurse and the anesthesiologist in the procedure room. Mental Status Examination: alert and oriented. Airway Examination: normal oropharyngeal airway and neck mobility. Respiratory Examination: clear to auscultation. CV Examination: normal. Prophylactic Antibiotics: The patient does not require prophylactic antibiotics. Prior Anticoagulants: The patient has taken no previous anticoagulant or antiplatelet agents. ASA Grade Assessment: II - A patient with mild systemic disease. After reviewing the risks and benefits, the patient was deemed in satisfactory condition to undergo the procedure. The anesthesia plan was to use monitored anesthesia care (MAC). Immediately prior to administration of medications, the patient was re-assessed for adequacy to receive sedatives. The heart rate, respiratory rate, oxygen saturations, blood pressure, adequacy of pulmonary ventilation, and response to care were monitored throughout the procedure. The physical status of the patient was re-assessed after the procedure. The Colonoscope was introduced through the anus and advanced to the terminal ileum, with identification of the appendiceal orifice and IC valve. The colonoscopy was performed without difficulty. The patient tolerated the procedure well. The quality of the bowel preparation was good. The terminal ileum, ileocecal valve, appendiceal orifice, and rectum were photographed. Scope insertion time was 2 minutes. Scope withdrawal time was 9 minutes. The total duration of the procedure was 11 minutes. Findings: The perianal and digital rectal examinations were normal. The terminal ileum appeared normal. Six sessile polyps were found in the recto-sigmoid colon and descending colon. The polyps were 3 to 5 mm in size. These polyps were removed with a cold biopsy forceps. Resection and retrieval were complete. Verification of patient identification for the specimen was done by the physician and nurse using the patient's name, date and medical record number. Estimated blood loss was minimal. Multiple small and large-mouthed diverticula were found from sigmoid to descending colon. There was no evidence of diverticular bleeding. Non-bleeding external and internal hemorrhoids were found during retroflexion. The hemorrhoids were medium-sized. Impression: - The examined portion of the ileum was normal. - Six 3 to 5 mm polyps at the recto-sigmoid colon and in the descending colon, removed with a cold biopsy forceps. Resected and retrieved. - Moderate diverticulosis from sigmoid to descending colon. There was no evidence of diverticular bleeding. - Non-bleeding external and internal hemorrhoids. Recommendation: - Patient has a contact number available for emergencies. The signs and symptoms of potential delayed complications were discussed with the patient. Return to normal activities tomorrow. Written discharge instructions were provided to the patient. - High fiber diet. - Continue present medications. - Await pathology results. - Repeat colonoscopy in 3 - 5 years for surveillance after piecemeal polypectomy. - Telephone GI clinic for pathology results in 2 weeks. - Return to primary care physician. Procedure Code(s): --- Professional --- 09779, Colonoscopy, flexible; with biopsy, single or multiple Diagnosis Code(s): --- Professional --- Z12.11, Encounter for screening for malignant neoplasm of colon K64.8, Other hemorrhoids K63.5, Polyp of colon K57.30, Diverticulosis of large intestine without perforation or abscess without bleeding CPT copyright 2019 [employer]. All rights reserved. The codes documented in this report are preliminary and upon office services clerk review may be revised to meet current compliance requirements. Alexy Frank MD Alexy Frank MD 05/17/2020 12:15:12 PM Electronically signed by Alexy Frank MD Number of Addenda: 0 Note Initiated On: 05/17/2020 11:26 AM Estimated Blood Loss: Estimated blood loss was minimal.
[2020-05-17] MEDS ORDERED: propofoL 200 MG/20 ML VIAL As Ordered ONE (12:26)
[2020-05-17] MEDS ORDERED: LIDOCAINE 2% 100MG/5ML SDV (FOR ANES.) As Ordered ONE (12:26)
[2020-05-17 12:45] VITALS: BP 131/80
== END 2020-05-17 12:54 | disposition home or self-care (01) ==
LOC: M OPP 09:50
PROVIDERS: ATTEND Internal Medicine Gastroenterology
DX: Z12.11 Encounter for screening for malignant neoplasm of colon (principal); R10.13 Epigastric pain; R63.4 Abnormal weight loss; K63.5 Polyp of colon; K57.30 Diverticulosis of large intestine without perforation or abscess without bleeding; K64.8 Other hemorrhoids; D13.0 Benign neoplasm of esophagus; D13.1 Benign neoplasm of stomach; K21.00 Gastro-esophageal reflux disease with esophagitis, without bleeding; K44.9 Diaphragmatic hernia without obstruction or gangrene; K29.70 Gastritis, unspecified, without bleeding; K31.89 Other diseases of stomach and duodenum; M19.90 Unspecified osteoarthritis, unspecified site; M79.7 Fibromyalgia; F41.9 Anxiety disorder, unspecified; F32.9 Major depressive disorder, single episode, unspecified; G43.909 Migraine, unspecified, not intractable, without status migrainosus; J44.9 Chronic obstructive pulmonary disease, unspecified; G47.30 Sleep apnea, unspecified; F17.210 Nicotine dependence, cigarettes, uncomplicated; Z86.711 Personal history of pulmonary embolism; Z88.5 Allergy status to narcotic agent; Z88.8 Allergy status to other drugs, medicaments and biological substances; Z79.51 Long term (current) use of inhaled steroids; Z79.899 Other long term (current) drug therapy; Z80.41 Family history of malignant neoplasm of ovary

== ENCOUNTER → 2020-12-12 | Outpatient (CLI) | payer OTHER ==
[~2020-12-12] MED LIST changes: -DOXY100C37 PO; +DOXY1CAP62 PO; -NS 1,000 ML IV ONE; +OMEP40CA4 PO; -OMEP40CA97 PO
--- NOTE | 2020-12-12 14:53 | REP ---
INDICATION: J44.9 Chronic obstructive pulmonary disease, unspecified. COMPARISON: 02/06/2020 TECHNIQUE: PA and lateral views FINDINGS: The lungs are clear. The heart is not enlarged. There is no failure. The mediastinum, pleural surfaces and bony structures unremarkable. IMPRESSION: No active process. No interval change. <Electronically signed by Truong Orozco > 12/12/20 0637
== END ==
LOC: M PLAIMG 14:18
PROVIDERS: ATTEND Internal Medicine Pulmonary Disease
DX: J44.9 Chronic obstructive pulmonary disease, unspecified (principal)

== ENCOUNTER → 2021-09-02 | Outpatient (CLI) | payer OTHER ==
[~2021-09-02] MED LIST changes: +DOXY-443 PO; -DOXY1CAP62 PO; -IBUP200T45 PO; +IBUP200T46 PO; -OMEP-221; -OMEP-221 PO; +OMEP40CA5; +OMEP40CA5 PO
== END ==
LOC: M RAD 13:24
PROVIDERS: ATTEND Physician Assistant
DX: M79.604 Pain in right leg (principal); M25.561 Pain in right knee; R60.9 Edema, unspecified

== ENCOUNTER → 2021-10-22 | Outpatient (CLI) | payer OTHER ==
[~2021-10-22] MED LIST changes: +ALBU2.5V10 NEB; -ALBU83IN NEB
== END ==
LOC: M WHC 13:55
PROVIDERS: ATTEND Physician Assistant
DX: Z12.31 Encounter for screening mammogram for malignant neoplasm of breast (principal); N63.11 Unspecified lump in the right breast, upper outer quadrant; N63.20 Unspecified lump in the left breast, unspecified quadrant

== ENCOUNTER → 2021-11-14 | Outpatient (CLI) | payer OTHER | LOC: M WHC 10:37 | PROVIDERS: ATTEND Physician Assistant | DX: R92.8 Other abnormal and inconclusive findings on diagnostic imaging of breast (principal); N63.11 Unspecified lump in the right breast, upper outer quadrant; N63.20 Unspecified lump in the left breast, unspecified quadrant ==

== ENCOUNTER → 2021-11-27 | Outpatient (CLI) | payer OTHER | LOC: M SOG 16:05 | PROVIDERS: ATTEND Orthopaedic Surgery Hand Surgery | DX: M79.641 Pain in right hand (principal) ==

== ENCOUNTER → 2021-12-05 | Outpatient (CLI) | payer OTHER ==
[~2021-12-05] MED LIST changes: +MECL-86 PO; +MELO15TA28 PO; +ROPI0.5T3 PO
[2021-12-05 16:51] LABS: FREE T4 0.94 NG/DL (0.76-1.46); THYROID STIMULATING HORMONE 1.99 uIU/ML (0.358-3.740)
[2021-12-05 17:07] LABS: PROLACTIN 3.4 NG/ML
== END ==
LOC: M PLALAB 11:28
PROVIDERS: ATTEND Surgery
DX: N64.52 Nipple discharge (principal)

== ENCOUNTER → 2021-12-09 | Outpatient (CLI) | payer OTHER ==
[~2021-12-09] MED LIST changes: +**SFHN** LIDOCAINE 1% MDV 20ML VIAL ONE; +**SFHN** SODIUM BICARBONATE 8.4% 10MEQ 10ML VIAL ONE
[2021-12-09 12:17] VITALS: BP 134/84
== END ==
LOC: M WHCPRO 09:59
PROVIDERS: ATTEND Surgery
DX: N60.21 Fibroadenosis of right breast (principal); N60.22 Fibroadenosis of left breast

== ENCOUNTER → 2022-01-13 | Outpatient (CLI) | payer OTHER ==
[~2022-01-13] MED LIST changes: -**SFHN** LIDOCAINE 1% MDV 20ML VIAL ONE; -**SFHN** SODIUM BICARBONATE 8.4% 10MEQ 10ML VIAL ONE
== END ==
LOC: M SOG 10:46
PROVIDERS: ATTEND Orthopaedic Surgery
DX: M54.50 Low back pain, unspecified (principal); M25.551 Pain in right hip; M25.561 Pain in right knee; M16.12 Unilateral primary osteoarthritis, left hip; M47.817 Spondylosis without myelopathy or radiculopathy, lumbosacral region

== ENCOUNTER → 2022-02-10 | Outpatient (CLI) | payer OTHER | LOC: M RAD 15:52 | PROVIDERS: ATTEND Pain Medicine Interventional Pain Medicine | DX: M25.561 Pain in right knee (principal) ==

== ENCOUNTER → 2022-02-10 | Outpatient (CLI) | payer OTHER ==
[~2022-02-10] MED LIST changes: +PROHANCE 279.3MG/ML 15ML VIAL ONE; +PROHANCE 279.3MG/ML 5ML VIAL ONE
== END ==
LOC: M PLAIMG 14:12
PROVIDERS: ATTEND Pain Medicine Interventional Pain Medicine
DX: M54.50 Low back pain, unspecified (principal); G83.11 Monoplegia of lower limb affecting right dominant side; M96.1 Postlaminectomy syndrome, not elsewhere classified; Z98.890 Other specified postprocedural states
CPT/HCPCS: 72158; A9576

== ENCOUNTER → 2022-02-16 | Outpatient (CLI) | payer OTHER ==
[~2022-02-16] MED LIST changes: +ARNU1INH IN; +CETI-24 PO; +FAMO20TA PO; +FLUT1INH3 IN; +GABA-1171 PO; -PROHANCE 279.3MG/ML 15ML VIAL ONE; -PROHANCE 279.3MG/ML 5ML VIAL ONE; +STIO1AER INH; +VARE1TAB2 PO; +ZOLO100T PO
== END ==
LOC: M LABSMTC 10:36
PROVIDERS: ATTEND Anesthesiology
DX: Z01.812 Encounter for preprocedural laboratory examination (principal); Z20.822 Contact with and (suspected) exposure to COVID-19

== ENCOUNTER → 2022-02-18 | Day surgery (SDC) | payer OTHER ==
[~2022-02-18] VITALS: Ht 165.1 cm; Wt 93.0 kg
[~2022-02-18] MED LIST changes: +BACITRACIN OINTMENT 30GM TUBE As Ordered ONE; +BUPIVACAINE HCL 0.25% 30ML VIAL As Ordered ONE; +LIDOCAINE 2% 100MG/5ML SDV (FOR ANES.) As Ordered ONE; +LR 1,000 ML IV SCH; +MIDAZOLAM INJ 2MG/2ML VIAL (J2250 PER 1MG) As Ordered ONE; +ONDANSETRON 4MG 2ML VIAL As Ordered ONE; +ONDANSETRON 4MG 2ML VIAL IV PRN; +TRAM50TA2 PO; +ceFAZolin 2 GM/D5W 50 ML IV BAG (J0690 PER 500MG) As Ordered ONE; +dexameTHASONE 4 MG/ML 1ML VIAL (J1100 PER 1MG) As Ordered ONE; +ePHEDrine SULFATE 25 MG/5 ML(5MG/ML) SYRINGE As Ordered ONE; +fentaNYL 100 MCG/2 ML INJECTION As Ordered ONE; +propofoL 200 MG/20 ML VIAL As Ordered ONE
[2022-02-18] MEDS: fentaNYL 100 MCG/2 ML INJECTION IV PRN ×3 (12:18→12:57)
[2022-02-18] MEDS: oxyCODONE 5MG TAB PO PRN ×2 (12:57→13:38)
[2022-02-18 14:05] VITALS: BP 122/68
== END | disposition home or self-care (01) ==
LOC: M SDC 10:04
PROVIDERS: ATTEND Orthopaedic Surgery Hand Surgery
DX: G56.01 Carpal tunnel syndrome, right upper limb (principal); M67.431 Ganglion, right wrist; K21.9 Gastro-esophageal reflux disease without esophagitis; J44.9 Chronic obstructive pulmonary disease, unspecified; F41.9 Anxiety disorder, unspecified; F32.A Depression, unspecified; G43.909 Migraine, unspecified, not intractable, without status migrainosus; G40.909 Epilepsy, unspecified, not intractable, without status epilepticus; Z79.51 Long term (current) use of inhaled steroids; Z88.5 Allergy status to narcotic agent; Z88.8 Allergy status to other drugs, medicaments and biological substances; Z87.891 Personal history of nicotine dependence; M79.7 Fibromyalgia
CPT/HCPCS: 25111; 29848; 88305; J0690; J1100; J2250; J2405; J3010

== ENCOUNTER → 2022-06-01 | Outpatient (CLI) | payer OTHER ==
[~2022-06-01] MED LIST changes: -BACITRACIN OINTMENT 30GM TUBE As Ordered ONE; -BUPIVACAINE HCL 0.25% 30ML VIAL As Ordered ONE; -LIDOCAINE 2% 100MG/5ML SDV (FOR ANES.) As Ordered ONE; -LR 1,000 ML IV SCH; -MIDAZOLAM INJ 2MG/2ML VIAL (J2250 PER 1MG) As Ordered ONE; -ONDANSETRON 4MG 2ML VIAL As Ordered ONE; -ONDANSETRON 4MG 2ML VIAL IV PRN; -ceFAZolin 2 GM/D5W 50 ML IV BAG (J0690 PER 500MG) As Ordered ONE; -dexameTHASONE 4 MG/ML 1ML VIAL (J1100 PER 1MG) As Ordered ONE; -ePHEDrine SULFATE 25 MG/5 ML(5MG/ML) SYRINGE As Ordered ONE; -fentaNYL 100 MCG/2 ML INJECTION As Ordered ONE; -propofoL 200 MG/20 ML VIAL As Ordered ONE
== END ==
LOC: M SLEEP HO 11:42
PROVIDERS: ATTEND Internal Medicine Pulmonary Disease
DX: G47.30 Sleep apnea, unspecified (principal)

== ENCOUNTER → 2022-07-08 | Outpatient (CLI) | payer OTHER | LOC: M WHC 12:18 | PROVIDERS: ATTEND Surgery | DX: D24.1 Benign neoplasm of right breast (principal); D24.2 Benign neoplasm of left breast ==

== ENCOUNTER 2022-07-24 18:39 | Emergency (ER) | payer OTHER ==
[~2022-07-24] VITALS: Ht 165.1 cm; Wt 92.2 kg
[2022-07-24] MEDS ORDERED: KETOROLAC 30 MG/ML 1ML VIAL IV ONE (19:10)
[2022-07-24] MEDS ORDERED: NS 1,000 ML IV ONE (19:10)
[2022-07-24] MEDS ORDERED: ISOVUE-370 76% 100ML VIAL As Ordered ONE (19:17)
[2022-07-24 19:31] LABS: BASO # 0.1 10^3/uL (0.0-0.2); BASO % 0.6 % (0.0-1.0); EOS # 0.2 10^3/uL (0.0-0.5); EOS % 1.4 % (0.0-3.0); HEMATOCRIT 40.2 % (36.0-47.0); HEMOGLOBIN 13.6 g/dl (12.0-15.5); LYMPH # 3.1 10^3/uL (1.5-5.0); LYMPH % 29.9 % (24.0-44.0); MEAN CORPUSCULAR HEMOGLOBIN 30.7 pg (27.0-33.0); MEAN CORPUSCULAR HGB CONC 33.8 g/dl (32.0-36.5); MEAN CORPUSCULAR VOLUME 90.7 fl (80.0-96.0); MONO # 0.7 10^3/uL (0.0-0.8); MONO % 6.7 % (2.0-8.0); NEUTROPHILS # 6.4 10^3/uL (1.5-8.5); PLATELET COUNT, AUTOMATED 269 10^3/uL (150-450); RED BLOOD COUNT 4.43 10^6/uL (4.00-5.40); WHITE BLOOD COUNT 10.5 10^3/uL (4.0-10.0)
[2022-07-24 19:42] LABS: ERYTHROCYTE SEDIMENTATION RATE 12 mm/hr (0-20)
[2022-07-24 19:50] LABS: LIPASE 33 U/L (12-53)
[2022-07-24 19:52] LABS: ALBUMIN 4.3 G/DL (3.2-5.2); ALKALINE PHOSPHATASE 115 U/L (46-116); ALT/SGPT 19 U/L (7.0-40); AST/SGOT 12 U/L (<34); BILIRUBIN,DIRECT < 0.1 MG/DL (<0.4); BILIRUBIN,TOTAL 0.2 MG/DL (0.3-1.2); TOTAL PROTEIN 7.1 G/DL (5.7-8.2)
[2022-07-24] MEDS ORDERED: IBUP-1022 PO (21:59)
[2022-07-24 22:15] VITALS: BP 131/84
== END 2022-07-24 22:19 | disposition home or self-care (01) ==
LOC: M ED 18:39
DX: R10.31 Right lower quadrant pain (principal); L72.9 Follicular cyst of the skin and subcutaneous tissue, unspecified; J45.909 Unspecified asthma, uncomplicated; K21.9 Gastro-esophageal reflux disease without esophagitis; Z88.5 Allergy status to narcotic agent; Z79.899 Other long term (current) drug therapy
CPT/HCPCS: 70490; 74177; 76536; 80047; 80076; 81001; 83605; 83690; 85025; 85652; 86140; 87040; 96374; 99284; J1885; Q9967

== ENCOUNTER → 2022-09-18 | Outpatient (REF) | payer OTHER ==
[~2022-09-18] MED LIST changes: +IBUP-1022 PO
[2022-09-18 17:59] LABS: BASO # 0.1 10^3/uL (0.0-0.2); BASO % 0.8 % (0.0-1.0); EOS # 0.1 10^3/uL (0.0-0.5); EOS % 1.5 % (0.0-3.0); HEMATOCRIT 41.2 % (36.0-47.0); HEMOGLOBIN 13.6 g/dl (12.0-15.5); LYMPH # 3.4 10^3/uL (1.5-5.0); LYMPH % 37.5 % (24.0-44.0); MEAN CORPUSCULAR HEMOGLOBIN 30.4 pg (27.0-33.0); MONO # 0.6 10^3/uL (0.0-0.8); MONO % 6.5 % (2.0-8.0); NEUTROPHILS # 4.9 10^3/uL (1.5-8.5); NEUTROPHILS % 53.4 % (36.0-66.0); PLATELET COUNT, AUTOMATED 279 10^3/uL (150-450); RED BLOOD COUNT 4.48 10^6/uL (4.00-5.40); WHITE BLOOD COUNT 9.2 10^3/uL (4.0-10.0)
[2022-09-18 18:19] LABS: THYROID STIMULATING HORMONE 2.482 uIU/ML (0.55-4.78)
[2022-09-18 18:20] LABS: ALBUMIN 4.1 G/DL (3.2-5.2); ALKALINE PHOSPHATASE 110 U/L (46-116); ALT/SGPT 25 U/L (7.0-40); AST/SGOT 18 U/L (<34); BILIRUBIN,TOTAL 0.4 MG/DL (0.3-1.2); BLOOD UREA NITROGEN 17 MG/DL (9-23); CALCIUM LEVEL 8.8 MG/DL (8.5-10.1); CARBON DIOXIDE LEVEL 27 MMOL/L (20-31); CHLORIDE LEVEL 107 MMOL/L (98-107); CHOLESTEROL LEVEL 158 MG/DL (<200); CHOLESTEROL RISK RATIO 4.07 (<5); CREATININE FOR GFR 0.97 MG/DL (0.55-1.30); GLOMERULAR FILTRATION RATE > 60.0 (>58); GLUCOSE, FASTING 72 MG/DL (60-100); HDL CHOLESTEROL 38.8 MG/DL (>40); LDL CHOLESTEROL 74.8 MG/DL (<100); NON-HDL-C 119.2 MG/DL; POTASSIUM SERUM 4.6 MMOL/L (3.5-5.1); SODIUM LEVEL 141 MMOL/L (136-145); TOTAL PROTEIN 6.6 G/DL (5.7-8.2); TRIGLYCERIDES LEVEL 222 MG/DL (<150)
== END ==
LOC: M LAB REF 16:14
PROVIDERS: ATTEND Physician Assistant
DX: K21.9 Gastro-esophageal reflux disease without esophagitis (principal); F41.1 Generalized anxiety disorder

== ENCOUNTER → 2022-09-29 | Outpatient (CLI) | payer OTHER | LOC: M EKG 12:14 | PROVIDERS: ATTEND Physician Assistant | DX: R00.2 Palpitations (principal); R94.31 Abnormal electrocardiogram [ECG] [EKG] ==

== ENCOUNTER → 2023-01-14 | Outpatient (CLI) | payer OTHER ==
[~2023-01-14] MED LIST changes: -ROPI0.5T3 PO; +ROPI0.5T33 PO
[2023-01-14 16:11] LABS: BASO # 0.1 10^3/uL (0.0-0.2); BASO % 0.9 % (0.0-1.0); EOS # 0.1 10^3/uL (0.0-0.5); EOS % 1.5 % (0.0-3.0); HEMATOCRIT 42.1 % (36.0-47.0); HEMOGLOBIN 13.8 g/dl (12.0-15.5); LYMPH # 3.1 10^3/uL (1.5-5.0); LYMPH % 33.7 % (24.0-44.0); MEAN CORPUSCULAR HEMOGLOBIN 30.1 pg (27.0-33.0); MEAN CORPUSCULAR HGB CONC 32.8 g/dl (32.0-36.5); MEAN CORPUSCULAR VOLUME 91.7 fl (80.0-96.0); MONO # 0.7 10^3/uL (0.0-0.8); MONO % 7.2 % (2.0-8.0); NEUTROPHILS # 5.1 10^3/uL (1.5-8.5); NEUTROPHILS % 56.5 % (36.0-66.0); PLATELET COUNT, AUTOMATED 252 10^3/uL (150-450); RED BLOOD COUNT 4.59 10^6/uL (4.00-5.40)
[2023-01-14 16:25] LABS: BLOOD UREA NITROGEN 15 MG/DL (9-23); CALCIUM LEVEL 9.4 MG/DL (8.5-10.1); CARBON DIOXIDE LEVEL 32 MMOL/L (20-31); CHLORIDE LEVEL 109 MMOL/L (98-107); CREATININE FOR GFR 0.91 MG/DL (0.55-1.30); GLOMERULAR FILTRATION RATE > 60.0 (>58); GLUCOSE, FASTING 98 MG/DL (60-100); POTASSIUM SERUM 3.9 MMOL/L (3.5-5.1); SODIUM LEVEL 146 MMOL/L (136-145)
== END ==
LOC: M RAD 15:27
PROVIDERS: ATTEND Nurse Practitioner Family
DX: Z01.818 Encounter for other preprocedural examination (principal)

== ENCOUNTER → 2023-04-24 | Outpatient (CLI) | payer OTHER ==
[~2023-04-24] MED LIST changes: +FLUT12AE6; +GABA-282 PO; +MELO7.5T35; +MONT10TA97 PO
== END ==
LOC: M PLAIMG 14:33
PROVIDERS: ATTEND Physician Assistant
DX: G43.719 Chronic migraine without aura, intractable, without status migrainosus (principal)

== ENCOUNTER → 2023-07-15 | Outpatient (CLI) | payer OTHER | LOC: M SOG 13:44 | PROVIDERS: ATTEND Physician Assistant | DX: M25.511 Pain in right shoulder (principal) ==

== ENCOUNTER → 2023-08-10 | Outpatient (CLI) | payer OTHER ==
[2023-08-10 17:45] LABS: HIV 1&2 SCREEN NEGATIVE (NEGATIVE)
[2023-08-10 17:53] LABS: HEPATITIS C VIRUS ABY INDEX < 0.02 INDEX (<0.8)
[2023-08-10 17:55] LABS: GC DNA AMPLIFICATION NEGATIVE (NEGATIVE)
== END ==
LOC: M WUC 14:55
PROVIDERS: ATTEND Physician Assistant
DX: Z11.3 Encounter for screening for infections with a predominantly sexual mode of transmission (principal); Z11.59 Encounter for screening for other viral diseases; Z11.4 Encounter for screening for human immunodeficiency virus [HIV]

== ENCOUNTER 2023-08-25 14:06 | Outpatient (RCR) | payer OTHER | END 2023-08-31 | LOC: M PT 14:06 | PROVIDERS: ATTEND Physician Assistant | DX: M25.511 Pain in right shoulder (principal) ==

== ENCOUNTER → 2023-08-26 | Outpatient (CLI) | payer OTHER | LOC: M SOG 14:03 | PROVIDERS: ATTEND Physician Assistant | DX: M25.511 Pain in right shoulder (principal) ==

== ENCOUNTER → 2023-08-31 | Outpatient (REF) ==
[~2023-08-31] MED LIST changes: +DOXY-323 PO; -DOXY-443 PO
== END ==
LOC: M PLAIMG 14:19
PROVIDERS: ATTEND Internal Medicine
DX: R52 Pain, unspecified (principal)

== ENCOUNTER → 2023-09-06 | Outpatient (CLI) | payer OTHER ==
[2023-09-06 17:54] LABS: HIV 1&2 SCREEN NEGATIVE (NEGATIVE)
[2023-09-06 18:02] LABS: HEPATITIS C VIRUS ABY INDEX < 0.02 INDEX (<0.8)
[2023-09-06 18:56] LABS: GC DNA AMPLIFICATION NEGATIVE (NEGATIVE)
== END ==
LOC: M WUC 10:50
PROVIDERS: ATTEND Physician Assistant
DX: Z11.3 Encounter for screening for infections with a predominantly sexual mode of transmission (principal); Z11.59 Encounter for screening for other viral diseases; Z11.4 Encounter for screening for human immunodeficiency virus [HIV]

== ENCOUNTER 2023-09-17 14:15 | Outpatient (RCR) | payer OTHER | END 2023-10-01 | LOC: M PT 14:15 | PROVIDERS: ATTEND Physician Assistant | DX: M79.601 Pain in right arm (principal) ==

== ENCOUNTER → 2023-09-24 | Outpatient (CLI) | payer OTHER | LOC: M PLARAD 09-10 14:00 | PROVIDERS: ATTEND Physician Assistant | DX: S46.011A Strain of muscle(s) and tendon(s) of the rotator cuff of right shoulder, initial encounter (principal); Y93.9 Activity, unspecified; Y92.9 Unspecified place or not applicable ==

== ENCOUNTER → 2023-10-20 | Outpatient (CLI) | payer OTHER | LOC: M WHC 13:00 | PROVIDERS: ATTEND Physician Assistant | DX: N63.24 Unspecified lump in the left breast, lower inner quadrant (principal); R92.8 Other abnormal and inconclusive findings on diagnostic imaging of breast ==

== ENCOUNTER → 2023-10-20 | Outpatient (CLI) | payer OTHER | LOC: M WHC 11:47 | PROVIDERS: ATTEND Physician Assistant | DX: R92.8 Other abnormal and inconclusive findings on diagnostic imaging of breast (principal); R22.31 Localized swelling, mass and lump, right upper limb; N63.20 Unspecified lump in the left breast, unspecified quadrant ==

== ENCOUNTER → 2024-03-21 | Outpatient (CLI) | payer OTHER ==
[~2024-03-21] MED LIST changes: -DOXY-323 PO; +DOXY-441 PO; +GABA-1172 PO; -GABA-282 PO
[2024-03-21 14:20] LABS: BASO # 0.1 10^3/uL (0.0-0.2); BASO % 0.8 % (0.0-1.0); EOS # 0.2 10^3/uL (0.0-0.5); EOS % 2.1 % (0.0-3.0); HEMATOCRIT 40.6 % (36.0-47.0); HEMOGLOBIN 13.1 g/dl (12.0-15.5); LYMPH # 3.2 10^3/uL (1.5-5.0); LYMPH % 36.3 % (24.0-44.0); MEAN CORPUSCULAR HEMOGLOBIN 29.7 pg (27.0-33.0); MEAN CORPUSCULAR HGB CONC 32.3 g/dl (32.0-36.5); MEAN CORPUSCULAR VOLUME 92.1 fl (80.0-96.0); MONO # 0.8 10^3/uL (0.0-0.8); MONO % 8.4 % (2.0-8.0); NEUTROPHILS # 4.6 10^3/uL (1.5-8.5); NEUTROPHILS % 52.2 % (36.0-66.0); PLATELET COUNT, AUTOMATED 234 10^3/uL (150-450); RED BLOOD COUNT 4.41 10^6/uL (4.00-5.40); WHITE BLOOD COUNT 8.9 10^3/uL (4.0-10.0)
[2024-03-21 14:21] LABS: ALBUMIN 3.8 G/DL (3.2-5.2); ALKALINE PHOSPHATASE 97 U/L (35-104); ALT/SGPT 20 U/L (7.0-40); AST/SGOT < 8 U/L (<34); BILIRUBIN,TOTAL 0.4 MG/DL (0.3-1.2); BLOOD UREA NITROGEN 18 MG/DL (9-23); CALCIUM LEVEL 9.3 MG/DL (8.5-10.1); CARBON DIOXIDE LEVEL 31 MMOL/L (20-31); CHLORIDE LEVEL 110 MMOL/L (98-107); CHOLESTEROL LEVEL 189 MG/DL (<200); CHOLESTEROL RISK RATIO 4.93 (<5); CREATININE FOR GFR 0.93 MG/DL (0.55-1.30); GLOMERULAR FILTRATION RATE > 60.0 (>51); GLUCOSE, FASTING 93 MG/DL (60-100); HDL CHOLESTEROL 38.3 MG/DL (>40); LDL CHOLESTEROL 112.1 MG/DL (<100); NON-HDL-C 150.7 MG/DL; POTASSIUM SERUM 4.2 MMOL/L (3.5-5.1); SODIUM LEVEL 145 MMOL/L (136-145); TOTAL PROTEIN 6.7 G/DL (5.7-8.2); TRIGLYCERIDES LEVEL 193 MG/DL (<150)
== END ==
LOC: M WUC 09:10
PROVIDERS: ATTEND Physician Assistant
DX: E78.2 Mixed hyperlipidemia (principal); F17.210 Nicotine dependence, cigarettes, uncomplicated

== ENCOUNTER 2024-03-28 18:02 | Emergency (ER) | payer OTHER ==
[~2024-03-28] VITALS: Ht 165.1 cm; Wt 94.5 kg
[2024-03-28] MEDS: METHOCARBAMOL 1,000 MG/10 ML VIAL IV ONE (22:04)
[2024-03-28] MEDS: ONDANSETRON 4MG 2ML VIAL IV ONE (22:05)
[2024-03-28] MEDS: HYDROMORPHONE HCL 0.5 MG/ 0.5 ML SYRINGE IV PRN (22:05)
[2024-03-28] MEDS: KETOROLAC 30 MG/ML 1ML VIAL IV ONE (22:05)
[2024-03-29] MEDS ORDERED: METH-1165 PO (00:08)
[2024-03-29] MEDS ORDERED: PERC5TAB12 PO (00:08)
[2024-03-29 00:23] VITALS: BP 136/78; TEMP 97.8; O2SAT 97
== END 2024-03-29 00:26 | disposition home or self-care (01) ==
LOC: M ED 18:02
DX: S39.012A Strain of muscle, fascia and tendon of lower back, initial encounter (principal); M25.552 Pain in left hip; W01.0XXA Fall on same level from slipping, tripping and stumbling without subsequent striking against object, initial encounter; K21.9 Gastro-esophageal reflux disease without esophagitis; J44.9 Chronic obstructive pulmonary disease, unspecified; F17.200 Nicotine dependence, unspecified, uncomplicated; F41.9 Anxiety disorder, unspecified; F32.A Depression, unspecified; Z88.5 Allergy status to narcotic agent; Z88.8 Allergy status to other drugs, medicaments and biological substances; Z79.52 Long term (current) use of systemic steroids; Z79.899 Other long term (current) drug therapy; Y92.009 Unspecified place in unspecified non-institutional (private) residence as the place of occurrence of the external cause; Y93.89 Activity, other specified; Y99.9 Unspecified external cause status
CPT/HCPCS: 72131; 73502; 73552; 96374; 96375; 96376; 99284; J1171; J1885; J2405; J2800

== ENCOUNTER → 2024-04-03 | Outpatient (CLI) | payer OTHER ==
[~2024-04-03] MED LIST changes: +METH-1165 PO; +PERC5TAB12 PO
== END ==
LOC: M SOG 07:55
PROVIDERS: ATTEND Orthopaedic Surgery
DX: M54.6 Pain in thoracic spine (principal); M54.50 Low back pain, unspecified; Z53.9 Procedure and treatment not carried out, unspecified reason

== ENCOUNTER → 2024-04-11 | Outpatient (CLI) | payer OTHER | LOC: M RAD 17:14 | PROVIDERS: ATTEND Orthopaedic Surgery | DX: M54.16 Radiculopathy, lumbar region (principal) ==

== ENCOUNTER → 2024-05-23 | Outpatient (CLI) | payer OTHER | LOC: M WHC 09:25 | PROVIDERS: ATTEND Physician Assistant | DX: R92.8 Other abnormal and inconclusive findings on diagnostic imaging of breast (principal); D24.2 Benign neoplasm of left breast ==

== ENCOUNTER → 2024-05-25 | Outpatient (CLI) | payer OTHER | LOC: M RAD 13:49 | PROVIDERS: ATTEND Internal Medicine Pulmonary Disease | DX: F17.218 Nicotine dependence, cigarettes, with other nicotine-induced disorders (principal); R91.8 Other nonspecific abnormal finding of lung field; J43.9 Emphysema, unspecified; K76.89 Other specified diseases of liver; D73.4 Cyst of spleen ==

== ENCOUNTER → 2024-07-07 | Outpatient (REF) | payer OTHER | LOC: M LAB REF 16:45 | PROVIDERS: ATTEND Physician Assistant | DX: L98.9 Disorder of the skin and subcutaneous tissue, unspecified (principal); D22.9 Melanocytic nevi, unspecified ==

== ENCOUNTER → 2024-07-14 | Outpatient (REF) | payer OTHER | LOC: M LAB REF 12:21 | PROVIDERS: ATTEND Physician Assistant | DX: Z79.899 Other long term (current) drug therapy (principal) ==

== ENCOUNTER → 2024-07-27 | Outpatient (CLI) | payer OTHER ==
[~2024-07-27] MED LIST changes: +PROHANCE 279.3MG/ML 15ML VIAL ONE; +PROHANCE 279.3MG/ML 5ML VIAL ONE
== END ==
LOC: M PLAIMG 13:21
PROVIDERS: ATTEND Physician Assistant
DX: M47.27 Other spondylosis with radiculopathy, lumbosacral region (principal)
CPT/HCPCS: 72158; 72197; A9576

== ENCOUNTER 2024-08-06 21:02 | Observation (INO) | payer OTHER ==
[~2024-08-06] VITALS: Ht 165.1 cm; Wt 95.3 kg
[~2024-08-06 21:02] MED LIST changes: -MELO7.5T35; +MELO7.5T35 PO; -PROHANCE 279.3MG/ML 15ML VIAL ONE; -PROHANCE 279.3MG/ML 5ML VIAL ONE
[2024-08-06] MEDS ORDERED: ISOVUE-370 76% 100ML VIAL As Ordered ONE (21:34)
[2024-08-06 21:46] VITALS: BP 168/83; TEMP 97.8; O2SAT 98
[2024-08-06 22:07] LABS: HEMATOCRIT 42.5 % (36.0-47.0); HEMOGLOBIN 14.4 g/dl (12.0-15.5); MEAN CORPUSCULAR HEMOGLOBIN 30.5 pg (27.0-33.0); MEAN CORPUSCULAR HGB CONC 33.9 g/dl (32.0-36.5); PLATELET COUNT, AUTOMATED 260 10^3/uL (150-450); RED BLOOD COUNT 4.72 10^6/uL (4.00-5.40); WHITE BLOOD COUNT 9.5 10^3/uL (4.0-10.0)
[2024-08-06 22:13] LABS: INR 0.87; PARTIAL THROMBOPLASTIN TIME 29.7 SECONDS (24.8-34.2); PROTHROMBIN TIME 12.2 SECONDS (12.5-14.5)
[2024-08-06 22:22] LABS: BLOOD UREA NITROGEN 11 MG/DL (9-23); CALCIUM LEVEL 8.9 MG/DL (8.5-10.1); CARBON DIOXIDE LEVEL 30 MMOL/L (20-31); CHLORIDE LEVEL 108 MMOL/L (98-107); CREATININE FOR GFR 0.87 MG/DL (0.55-1.30); GLOMERULAR FILTRATION RATE > 60.0 (>51); GLUCOSE, FASTING 90 MG/DL (60-100); SODIUM LEVEL 144 MMOL/L (136-145)
[2024-08-06 22:29] LABS: EOSINOPHILS 3 % (0-3); LYMPHOCYTES 49 % (16-44); MONOCYTES 1 % (0-5); NEUTROPHILS 47 % (28-66); PLATELET ESTIMATE NORMAL (NORMAL)
[2024-08-07] MEDS: NS (Normal Saline) 0.9% 1,000 ML IV SCH (00:25)
[2024-08-07] MEDS: ASPIRIN 81MG CHEW TABLET PO ONE (01:00)
[2024-08-07] MEDS: FAMOTIDINE IV BAG 20 MG in IV 1 EA IV ONE (01:00)
[2024-08-07] MEDS ORDERED: FLUT12AE2 INH (02:03)
[2024-08-07] MEDS ORDERED: OXYC1TAB23 PO (02:03)
[2024-08-07] MEDS ORDERED: NARC1SPR (02:03)
[2024-08-07] MEDS ORDERED: ALBU8.5H INH (02:03)
[2024-08-07] MEDS ORDERED: VARE0.5T PO (02:03)
[2024-08-07] MEDS ORDERED: CYCL-707 PO (02:06)
[2024-08-07] MEDS ORDERED: GUAI600T12 PO (02:06)
[2024-08-07] MEDS ORDERED: FREM225A PO (02:10)
[2024-08-07] MEDS ORDERED: RIZA10TA58 PO (02:10)
[2024-08-07] MEDS ORDERED: HOME MED LIST COMPLETE! XX SCH (02:15)
[2024-08-07] MEDS: ATORVASTATIN 20 MG TAB PO SCH (03:43)
[2024-08-07] MEDS ORDERED: ALBUTEROL 90 MCG/ACT 8GM HFA INHALER INH PRN (06:05)
[2024-08-07] MEDS ORDERED: CYCLOBENZAPRINE 10MG TABLET PO PRN (06:05)
[2024-08-07] MEDS ORDERED: guaiFENesin ER TABLET 600 MG TAB PO PRN (06:05)
[2024-08-07] MEDS ORDERED: RIZATRIPTAN MLT 10 MG TAB PO PRN (06:05)
[2024-08-07 06:12] LABS: INR 0.88; PARTIAL THROMBOPLASTIN TIME 30.7 SECONDS (24.8-34.2); PROTHROMBIN TIME 12.3 SECONDS (12.5-14.5)
[2024-08-07 06:49] LABS: ALBUMIN 3.5 G/DL (3.2-5.2); ALKALINE PHOSPHATASE 101 U/L (35-104); ALT/SGPT 16 U/L (7.0-40); AST/SGOT 11 U/L (<34); BILIRUBIN,DIRECT < 0.1 MG/DL (<0.4); BILIRUBIN,TOTAL 0.2 MG/DL (0.3-1.2); BLOOD UREA NITROGEN 13 MG/DL (9-23); CALCIUM LEVEL 8.8 MG/DL (8.5-10.1); CARBON DIOXIDE LEVEL 26 MMOL/L (20-31); CHLORIDE LEVEL 111 MMOL/L (98-107); CHOLESTEROL LEVEL 169 MG/DL (<200); CHOLESTEROL RISK RATIO 5.46 (<5); CREATININE FOR GFR 0.91 MG/DL (0.55-1.30); GLOMERULAR FILTRATION RATE > 60.0 (>51); GLUCOSE, FASTING 95 MG/DL (60-100); HDL CHOLESTEROL 30.9 MG/DL (>40); LDL CHOLESTEROL 92.3 MG/DL (<100); NON-HDL-C 138.1 MG/DL; POTASSIUM SERUM 4.3 MMOL/L (3.5-5.1); SODIUM LEVEL 145 MMOL/L (136-145); TOTAL PROTEIN 5.9 G/DL (5.7-8.2); TRIGLYCERIDES LEVEL 229 MG/DL (<150)
[2024-08-07 07:03] LABS: HEMOGLOBIN A1c 4.7 % (4.0-6.0)
[2024-08-07 07:25] LABS: BASO # 0.1 10^3/uL (0.0-0.2); BASO % 0.8 % (0.0-1.0); EOS # 0.2 10^3/uL (0.0-0.5); EOS % 2.3 % (0.0-3.0); HEMATOCRIT 39.4 % (36.0-47.0); HEMOGLOBIN 13.2 g/dl (12.0-15.5); LYMPH # 3.1 10^3/uL (1.5-5.0); LYMPH % 38.6 % (24.0-44.0); MEAN CORPUSCULAR HEMOGLOBIN 30.3 pg (27.0-33.0); MEAN CORPUSCULAR HGB CONC 33.5 g/dl (32.0-36.5); MEAN CORPUSCULAR VOLUME 90.6 fl (80.0-96.0); MONO # 0.6 10^3/uL (0.0-0.8); MONO % 7.8 % (2.0-8.0); NEUTROPHILS % 50.2 % (36.0-66.0); PLATELET COUNT, AUTOMATED 225 10^3/uL (150-450); RED BLOOD COUNT 4.35 10^6/uL (4.00-5.40); WHITE BLOOD COUNT 7.9 10^3/uL (4.0-10.0)
[2024-08-07] MEDS: FLUTICASONE HFA 110MCG 12GM INHALER INH SCH (08:13)
[2024-08-07] MEDS: HEPARIN SOD (PORCINE) 5000UNITS/ML 1ML VIAL/SYRINGE SQ SCH (09:31)
[2024-08-07] MEDS: FAMOTIDINE 20 MG TAB PO SCH (09:32)
[2024-08-07] MEDS: TOPIRAMATE (TopAMAX) 25 MG TAB PO SCH (09:33)
[2024-08-07 13:52] VITALS: BP 140/72
[2024-08-07] MEDS: LORazepam 1 MG TAB PO ONE (13:52)
[2024-08-07] MEDS: amLODIPine 5 MG TAB PO SCH (13:52)
[2024-08-07 17:35] VITALS: BP_SYST 136; BP_SYST 147; BP_SYST 150; BP_DIAS 80; BP_DIAS 82
[2024-08-07 17:40] VITALS: TEMP 97.2; O2SAT 96
[2024-08-07 18:06] LABS: AMORPHOUS SEDIMENT SMALL (NEGATIVE); APPEARANCE, URINE HAZY (CLEAR); BACTERIA, URINE AUTO NEGATIVE (NEGATIVE); BILIRUBIN, URINE AUTO NEGATIVE (NEGATIVE); BLOOD, URINE BLOOD NEGATIVE (NEGATIVE); COLOR, URINE YELLOW (YELLOW); GLUCOSE, URINE (UA) AUTO NEGATIVE (NEGATIVE); KETONE, URINE AUTO NEGATIVE (NEGATIVE); LEUKOCYTE ESTERASE, URINE AUTO NEGATIVE (NEGATIVE); MUCUS, URINE SMALL (NEGATIVE); NITRITE, URINE AUTO NEGATIVE (NEGATIVE); PROTEIN, URINE AUTO NEGATIVE (NEGATIVE); RBC, URINE AUTO 2 /HPF (0-3); SPECIFIC GRAVITY URINE AUTO 1.014 (1.002-1.035); SQUAMOUS EPITHELIAL CELL UR AU 1 /HPF (0-6); UROBILINOGEN, URINE AUTO 0.2 mg/dL (0.0-2.0); WBC, URINE AUTO 1 /HPF (0-3)
[2024-08-07 21:01] VITALS: BP 143/81; TEMP 97.5; O2SAT 95
[2024-08-07] MEDS: GABAPENTIN 300 MG CAP PO SCH (21:58)
[2024-08-07] MEDS: LOSARTAN 25 MG TAB PO SCH (21:59)
[2024-08-08] VITALS: BP 138/74; TEMP 97.3; O2SAT 95
[2024-08-08 03:18] VITALS: BP 115/69; TEMP 97.8; O2SAT 94
[2024-08-08 05:56] LABS: HEMOGLOBIN 12.3 g/dl (12.0-15.5); MEAN CORPUSCULAR HEMOGLOBIN 30.4 pg (27.0-33.0); MEAN CORPUSCULAR HGB CONC 33.2 g/dl (32.0-36.5); MEAN CORPUSCULAR VOLUME 91.6 fl (80.0-96.0); PLATELET COUNT, AUTOMATED 214 10^3/uL (150-450); RED BLOOD COUNT 4.04 10^6/uL (4.00-5.40); WHITE BLOOD COUNT 6.8 10^3/uL (4.0-10.0)
[2024-08-08 06:20] LABS: BLOOD UREA NITROGEN 14 MG/DL (9-23); CALCIUM LEVEL 8.4 MG/DL (8.5-10.1); CARBON DIOXIDE LEVEL 23 MMOL/L (20-31); CHLORIDE LEVEL 113 MMOL/L (98-107); CREATININE FOR GFR 0.79 MG/DL (0.55-1.30); GLOMERULAR FILTRATION RATE > 60.0 (>51); GLUCOSE, FASTING 107 MG/DL (60-100); POTASSIUM SERUM 4.4 MMOL/L (3.5-5.1); SODIUM LEVEL 143 MMOL/L (136-145)
[2024-08-08 08:00] VITALS: BP 158/96; TEMP 96.8; O2SAT 96
[2024-08-08] MEDS: MECLIZINE 25 MG TABLET PO PRN (09:37)
[2024-08-08 09:41] VITALS: BP_SYST 127; BP_SYST 128; BP_SYST 129; BP_DIAS 70; BP_DIAS 76
[2024-08-08 12:00] VITALS: BP 136/77; TEMP 96.6; O2SAT 99
[2024-08-08] MEDS ORDERED: LOSA-527 PO (14:21)
[2024-08-08] MEDS ORDERED: AMLO1TAB24 PO (14:21)
[2024-08-08] MEDS ORDERED: ATOR1TAB21 PO (14:21)
[2024-08-08] MEDS ORDERED: MECL-86 PO (14:21)
[2024-08-08] MEDS ORDERED: TOPA1TAB PO (14:25)
[2024-08-08] MEDS ORDERED: BLOOKIT XX (16:28)
[2024-08-14 14:37] LABS: ALDOS/RENIN RATIO 10.5 Ratio (0.9-28.9); ALDOSTERONE LC 4 ng/dL; RENIN ACTIVITY 0.38 ng/mL/h (0.25-5.82)
== END 2024-08-08 15:34 | disposition home or self-care (01) ==
LOC: M ED 21:02 → M ED INP 21:03 → M MSPAV 08-07 17:36
PROVIDERS: ADMIT Student in an Organized Health Care Education/Training Program; ATTEND Student in an Organized Health Care Education/Training Program
DX: G43.809 Other migraine, not intractable, without status migrainosus (principal); R20.2 Paresthesia of skin; R42 Dizziness and giddiness; R26.81 Unsteadiness on feet; H71.91 Unspecified cholesteatoma, right ear; I10 Essential (primary) hypertension; E78.5 Hyperlipidemia, unspecified; Z79.899 Other long term (current) drug therapy
CPT/HCPCS: 36415; 70450; 70496; 70498; 70551; 71045; 76775; 80047; 80048; 80061; 80076; 81001; 82088; 83036; 84244; 85025; 85027; 85610; 85730; 93005; 93041; 93306; 93975; 94640; 94760; 95819; 96372; 96374; 97116; 97161; 97165; 97530; 99285; G0399; J1308; Q9967

== ENCOUNTER → 2024-08-29 | Outpatient (CLI) | payer OTHER ==
[~2024-08-29] MED LIST changes: +ALBU8.5H INH; +AMLO1TAB24 PO; +ATOR1TAB21 PO; +BLOOKIT XX; +CYCL-707 PO; +FLUT12AE2 INH; +FREM225A PO; +GUAI600T12 PO; +LOSA-527 PO; +NARC1SPR; +OXYC1TAB23 PO; +RIZA10TA58 PO; +TOPI-256 PO; -TOPI25TA10 PO; +VARE0.5T PO
== END ==
LOC: M EKG 11:25
PROVIDERS: ATTEND Physician Assistant
DX: R00.2 Palpitations (principal); Z53.9 Procedure and treatment not carried out, unspecified reason

== ENCOUNTER → 2025-03-20 | Outpatient (CLI) | payer OTHER ==
[~2025-03-20] MED LIST changes: -IBUP-1022 PO; +IBUP600T42 PO; +LAMO-18 PO; -LAMO25TA4 PO
== END ==
LOC: M EKG 14:04
PROVIDERS: ATTEND Student in an Organized Health Care Education/Training Program
DX: R00.2 Palpitations (principal); Z53.9 Procedure and treatment not carried out, unspecified reason

== ENCOUNTER → 2025-03-22 | Outpatient (CLI) | payer OTHER | LOC: M SOG 07:40 | PROVIDERS: ATTEND Neuromusculoskeletal Medicine, Sports Medicine | DX: M25.551 Pain in right hip (principal); M25.552 Pain in left hip ==

== ENCOUNTER → 2025-04-05 | Outpatient (CLI) | payer OTHER | LOC: M PLARAD 11:47 | PROVIDERS: ATTEND Neurological Surgery | DX: M54.50 Low back pain, unspecified (principal); N28.1 Cyst of kidney, acquired; K76.89 Other specified diseases of liver; M47.816 Spondylosis without myelopathy or radiculopathy, lumbar region ==